=== PATIENT | male | born 1960 | race Caucasian/White ===

== ENCOUNTER 2020-07-12 12:12 | Outpatient (REF) | payer OTHER, SELFPAY ==
[2020-07-12 14:41] LABS: Alanine Aminotransferase 16 U/L (0-40); Albumin Level 4.5 g/dL (3.5-5.0); Alkaline Phosphatase 52 U/L (39-117); Anion Gap 12 (12-20); Aspartate Amino Transferase 17 U/L (5-37); Bilirubin Total 0.6 mg/dL (0.0-1.0); Blood Urea Nitrogen 15 mg/dL (9-16); Calcium 9.3 mg/dL (8.4-10.2); Carbon Dioxide 27 mmol/L (22-29); Chloride 102 mmol/L (96-108); Cholesterol 241 mg/dL; Estimated Glomerular Filt Rate > 60; Glucose Fasting 99 mg/dL (60-99); HDL Cholesterol 96 mg/dL; LDL Cholesterol Calculated 134 mg/dl; Potassium 4.1 mmol/L (3.3-5.1); Sodium 137 mmol/L (135-145); Total Protein 6.8 g/dL (6.5-8.0); Triglycerides 55 mg/dL
[2020-07-12 15:05] LABS: Prostate Specific Antigen Scr 0.32 ng/mL (<0.05-4.0)
[2020-07-12 15:09] LABS: TSH reflex Free T4 1.74 uIU/mL (0.32-4.0); Vitamin B12 < 146 pg/mL (200-900)
== END 2020-07-12 12:13 | disposition home or self-care (01) ==
LOC: HO.HMGCLDS 12:12
PROVIDERS: PCP Nurse Practitioner Family; Visit Provider Nurse Practitioner Family
DX: Z00.00 Encounter for general adult medical examination without abnormal findings (principal); Z12.5 Encounter for screening for malignant neoplasm of prostate; R20.2 Paresthesia of skin
CPT/HCPCS: 36415; 80053; 80061; 82607; 84153; 84443

== ENCOUNTER 2020-08-23 08:48 | Outpatient (REF) | payer OTHER, SELFPAY ==
[2020-08-23 11:12] LABS: MANUAL DIFF FLAG NO
[2020-08-23 11:19] LABS: Basophils Absolute Auto 0.1 X10*3/uL (0.0-0.2); Basophils Percent Auto 0.9 % (0-2); Eosinophils Percent Auto 0.2 % (0-4); Hemoglobin 13.9 g/dl (14.0-18.0); Imm Gran Abs Auto 0.02 X10*3/uL (0.00-0.03); Imm Gran Pct Auto 0.4 % (0.0-0.4); Lymphocytes Percent Auto 18.6 % (20-40); Mean Corpuscular HGB Conc 33.1 g/dl (31.0-36.0); Mean Corpuscular Hemoglobin 32.9 pg (27.0-33.0); Mean Corpuscular Volume 99.5 fL (80-98); Mean Platelet Volume 9.9 fL (9.4-12.4); Monocytes Absolute Auto 0.3 X10*3/uL (0.1-1.2); Monocytes Percent Auto 6.3 % (2-11); Neutrophils Percent Auto 73.6 % (45-73); Platelet Count 255 X10*3/uL (160-400); Red Blood Count 4.22 X10*6/uL (4.60-5.80); Red Cell Distribution Width 12.4 % (11.0-16.0); White Blood Count 5.4 X10*3/uL (4.8-10.8)
[2020-08-23 12:38] LABS: Folate 5.7 ng/mL (> or = 4.0); Vitamin B12 340 pg/mL (200-900)
[2020-08-23 15:21] LABS: Troponin-I High Sensitivity 8.1 ng/L (<3.5-35.0)
[2020-08-30 10:16] LABS: Parietal Cell Antibody <=20.0 Unit (<=20.0)
[2020-08-30 23:36] LABS: Intrinsic Factor Antibodies Negative (Negative)
== END 2020-08-23 08:49 | disposition home or self-care (01) ==
LOC: HO.HMGCLDS 08:48
PROVIDERS: PCP Nurse Practitioner Family; Visit Provider Nurse Practitioner Family
DX: E53.8 Deficiency of other specified B group vitamins (principal); R07.89 Other chest pain
CPT/HCPCS: 36415; 82607; 82746; 83516; 84484; 85025; 86340

== ENCOUNTER 2020-08-25 13:33 | Outpatient (REF) | payer OTHER, SELFPAY ==
[2020-08-26 09:01] LABS: Lyme Abs Screen <0.90 index
== END 2020-08-25 13:34 | disposition home or self-care (01) ==
LOC: HO.HMGCLDS 13:33
PROVIDERS: PCP Nurse Practitioner Family; Visit Provider Nurse Practitioner Family
DX: R20.2 Paresthesia of skin (principal); T14.8XXA Other injury of unspecified body region, initial encounter; W57.XXXA Bitten or stung by nonvenomous insect and other nonvenomous arthropods, initial encounter
CPT/HCPCS: 36415; 86617; 86618

== ENCOUNTER 2020-09-08 08:49 | Outpatient (REF) | payer OTHER, SELFPAY ==
--- NOTE | 2020-09-08 08:54 | EMG_ITS ---
This is a 59-year-old man, who has had years of bilateral lower extremity pain and some bony pain on the dorsum of the foot and some calluses of the tibial tubercle. His neurological examination is normal. IMPRESSION: Rule out peripheral neuropathy. Nerve conduction EMG study: Left peroneal motor axonal neuropathy, otherwise normal study with no evidence of diffuse neuropathy. EMG of the left L4-S1 innervated muscles is consistent with chronic left peroneal neuropathy distally with chronic denervation of the EDB muscle. Clinical correlation is suggested. MD MERCEDES Son/CHERRI / [id number]
== END 2020-09-08 08:50 | disposition home or self-care (01) ==
LOC: HO.NEURO 08:49
PROVIDERS: PCP Nurse Practitioner Family; Visit Provider Nurse Practitioner Family
DX: R20.2 Paresthesia of skin (principal)
CPT/HCPCS: 95885; 95912

== ENCOUNTER 2020-09-24 13:52 | Inpatient (IN) | payer OTHER, SELFPAY ==
--- NOTE | ~2020-09-24 | XR_ITS ---
EXAMINATION: CHEST AND BILATERAL FOOT EXAM. CLINICAL INFORMATION: Paresthesia/dizziness and chest pain. COMPARISON: None TECHNIQUE: Chest 2 views. 3 views each foot. FINDINGS: CHEST: The lungs are well-expanded and clear. The heart size and pulmonary vascularity is normal. No gross bony abnormality seen. LEFT FOOT: There is no visible acute fracture, dislocation or subluxation seen. No bony erosive changes. The ankle mortise and subtalar joints are normal. RIGHT FOOT: There is no visible acute fracture, dislocation or subluxation seen. No bony erosive changes. There is an old fracture fragment tip of lateral malleolus. The soft tissues are normal. XR/XR foot RT min 3V IMPRESSION: Unremarkable chest exam. Unremarkable bilateral foot exam.
--- NOTE | ~2020-09-24 | CT_ITS ---
EXAMINATION: CT HEAD WITHOUT CONTRAST CLINICAL INFORMATION: Dizziness false COMPARISON: Prior CT October 2019 TECHNIQUE: Contiguous axial imaging was performed from the skull base to vertex without intravenous administration of contrast. This CT examination was performed using dose optimization techniques as appropriate, variously including the following: *Automated exposure control *Adjustment of mA and/or kV according to patient size (this includes techniques or standardized protocols for targeted exams where dose is matched to indication/reason for exam; i.e. extremities or head) *Use of iterative reconstruction technique DLP: 652 mGy-cm FINDINGS: There is no evidence of acute intracranial hemorrhage or territorial infarction. No abnormal mass effect or midline shift is seen. [place] to white matter differentiation is well preserved. No extra-axial fluid collections are identified. The ventricles are normal in size. There is no abnormal attenuation within the brain parenchyma. The osseous structures and soft tissues are normal. The mastoid air cells and visualized portions of the paranasal sinuses are well aerated. CT/CT head/brain wo con IMPRESSION: No acute intracranial pathology.
--- NOTE | ~2020-09-24 | XR_ITS ---
EXAMINATION: CHEST AND BILATERAL FOOT EXAM. CLINICAL INFORMATION: Paresthesia/dizziness and chest pain. COMPARISON: None TECHNIQUE: Chest 2 views. 3 views each foot. FINDINGS: CHEST: The lungs are well-expanded and clear. The heart size and pulmonary vascularity is normal. No gross bony abnormality seen. LEFT FOOT: There is no visible acute fracture, dislocation or subluxation seen. No bony erosive changes. The ankle mortise and subtalar joints are normal. RIGHT FOOT: There is no visible acute fracture, dislocation or subluxation seen. No bony erosive changes. There is an old fracture fragment tip of lateral malleolus. The soft tissues are normal. XR/XR chest 2V IMPRESSION: Unremarkable chest exam. Unremarkable bilateral foot exam.
--- NOTE | ~2020-09-24 | XR_ITS ---
EXAMINATION: CHEST AND BILATERAL FOOT EXAM. CLINICAL INFORMATION: Paresthesia/dizziness and chest pain. COMPARISON: None TECHNIQUE: Chest 2 views. 3 views each foot. FINDINGS: CHEST: The lungs are well-expanded and clear. The heart size and pulmonary vascularity is normal. No gross bony abnormality seen. LEFT FOOT: There is no visible acute fracture, dislocation or subluxation seen. No bony erosive changes. The ankle mortise and subtalar joints are normal. RIGHT FOOT: There is no visible acute fracture, dislocation or subluxation seen. No bony erosive changes. There is an old fracture fragment tip of lateral malleolus. The soft tissues are normal. XR/XR foot LT min 3V IMPRESSION: Unremarkable chest exam. Unremarkable bilateral foot exam.
[2020-09-24 15:32] VITALS: BP 158/109; PULSE 64; RESP 18; TEMP 36.7; O2SAT 97; BMI 21.7
--- NOTE | 2020-09-24 16:08 | ECG_ITS ---
Test Reason : NUMBNESS LEGS Blood Pressure : / mmHG Vent. Rate : 059 BPM Atrial Rate : 059 BPM P-R Int : 124 ms QRS Dur : 106 ms QT Int : 458 ms P-R-T Axes : 068 023 -19 degrees QTc Int : 453 ms Sinus bradycardia Possible Left atrial enlargement Incomplete right bundle branch block Inferior infarct , age undetermined Abnormal ECG No previous ECGs available Referred By: Audra Winslow Electronically Signed By:SATISH HARLEY MD
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
[2020-09-24 16:37] LABS: MANUAL DIFF FLAG NO
[2020-09-24 16:40] LABS: Basophils Percent Auto 0.4 % (0-2); Eosinophils Percent Auto 0.3 % (0-4); Hemoglobin 14.8 g/dl (14.0-18.0); Imm Gran Abs Auto 0.02 X10*3/uL (0.00-0.03); Imm Gran Pct Auto 0.3 % (0.0-0.4); Lymphocytes Absolute Auto 1.7 X10*3/uL (1.2-4.9); Lymphocytes Percent Auto 24.8 % (20-40); Mean Corpuscular HGB Conc 33.6 g/dl (31.0-36.0); Mean Corpuscular Hemoglobin 32.4 pg (27.0-33.0); Mean Corpuscular Volume 96.3 fL (80-98); Mean Platelet Volume 9.5 fL (9.4-12.4); Monocytes Absolute Auto 0.5 X10*3/uL (0.1-1.2); Monocytes Percent Auto 7.6 % (2-11); Neutrophils Absolute Auto 4.6 X10*3/uL (2.0-8.3); Neutrophils Percent Auto 66.6 % (45-73); Platelet Count 238 X10*3/uL (160-400); Red Blood Count 4.57 X10*6/uL (4.60-5.80); Red Cell Distribution Width 11.9 % (11.0-16.0); White Blood Count 6.9 X10*3/uL (4.8-10.8)
[2020-09-24 17:03] LABS: B Type Natriuretic Peptide 105 pg/mL (<100); Troponin-I High Sensitivity 13.6 ng/L (<3.5-35.0)
[2020-09-24 17:06] LABS: Alanine Aminotransferase 15 U/L (0-40); Albumin Level 4.6 g/dL (3.5-5.0); Alkaline Phosphatase 62 U/L (39-117); Anion Gap 13 (12-20); Aspartate Amino Transferase 23 U/L (5-37); Bilirubin Total 0.8 mg/dL (0.0-1.0); Blood Urea Nitrogen 11 mg/dL (9-16); Calcium 9.4 mg/dL (8.4-10.2); Carbon Dioxide 28 mmol/L (22-29); Chloride 104 mmol/L (96-108); Creatinine Clr Calc Pharmacy 76.6; Estimated Glomerular Filt Rate > 60; Glucose Random 84 mg/dL (60-115); Magnesium 2.1 mg/dL (1.6-2.6); Potassium 3.7 mmol/L (3.3-5.1); Sodium 141 mmol/L (135-145); Total Protein 6.9 g/dL (6.5-8.0)
[2020-09-24 18:12] LABS: Glucose Urine UA NEG (NEG); Leukocyte Esterase Urine NEG (NEG); Nitrite Urine NEG (NEG); Urine Blood 1+ (NEG); Urine Ketones 5 MG/DL (NEG); Urine Protein NEG (NEG-TRACE)
[2020-09-24 18:17] LABS: Appearance Urine HAZY; Color Urine YELLOW
[2020-09-24 19:15] LABS: RBC Urine 0-2 /HPF (0); Squamous Epithelial Cell Urine TRACE /LPF; WBC Urine 0-2 /HPF (0-4)
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
--- NOTE | 2020-09-24 20:35 | MHC.CARE ---
CARE team support requested by NIYAH Gaytan for pt who was requesting to speak with a therapist, specifically male. This residential mortgage underwriter met with pt in room 20 to offer referrals and resources for therapy. He reported that he has been working with a therapist since March and doesn't need to be referred, explaining that he wanted to speak with someone here at the hospital. Initially he was requesting to speak with someone who can help with his financial and living situation, however he made several statements about suicide, wanting to , and spoke at length about various bits and pieces of his history. Hyperverbal with pressured speech, tangential, and presenting with thoughts of hopelessness and helplessness. He made statements such as I don't want to live, I'll kill myself in a year and a half after the money runs out, and I'll be by my birthday on Sunday. Recommending that pt receive full crisis evaluation. Provided verbal clinical and demographic information to [facility] triage Yunioryonis, awaiting response for ETA. Sect 12a will be signed and placed in pt's chart for safety and containment pending crisis evaluation and disposition.
--- NOTE | 2020-09-24 21:01 | PC.NURSE ---
Per Laura (care team), Elvi to evaluate patient in the morning. Pt changed over to hospital attire, belongings secured in locker #4 in the POD. No contraband found. Pt makes vague SI statements like I'll later this week and When my money runs out, I'm just gonna . Previously seen by care team (see previous Care Team note). Repeat troponin level being drawn at this time. Urine specimen sent to lab for analysis. Awaiting results.
--- NOTE | 2020-09-24 21:19 | MHC.CARE ---
CARE team will be completing evaluation due to [facility] being unable to provide a clinician until the morning.
[2020-09-24 21:53] LABS: Troponin-I High Sensitivity 11.8 ng/L (<3.5-35.0)
[2020-09-24 22:00] VITALS: BP 158/92; PULSE 87; RESP 18; O2SAT 97
[2020-09-24 22:32] LABS: Amphetamine Screen Urine Not Detected (Not Detect); Barbiturates, Urine Not Detected (Not Detect); Benzodiazepines Screen Urine Not Detected (Not Detect); Cannabinoid Screen Urine Not Detected (Not Detect); Cocaine Screen Urine Not Detected (Not Detect); Opiate Screen Urine Not Detected (Not Detect); Phencyclidine Screen Urine Not Detected (Not Detect)
[2020-09-24] MEDS: LORazepam 1 MG TABLET 2 MG PO (23:40)
[2020-09-24] MEDS: HaloperidoL 5 MG TABLET PO (23:40)
--- NOTE | 2020-09-25 02:43 | MHC.CARE ---
CARE team evaluation completed. Disposition is for inpatient psychiatric treatment. Section 12a in chart for safety and containment pending facility placement. Agreeable at this time. Will remain in ED until placement is secured. CADDY Lucila in agreement with plan of care.
--- NOTE | 2020-09-25 08:12 | ED.GENADULT ---
HPI - General Adult General Chief complaint: General Medical Stated complaint: numbness throughout the body/multiple complaints Time Seen by Provider: 09/24/20 16:08 Source: patient Mode of arrival: ambulatory Limitations: no limitations History of Present Illness Location: head, left, right, upper extremity and lower extremity Severity scale (1-10): 10 Quality: aching Relieving factors: none Exacerbating factors: movement Associated symptoms: loss of appetite Treatments prior to arrival: none Related Data Home Medications Medication Instructions Recorded Confirmed No Known Home Meds 09/24/20 09/24/20 Allergies Allergy/AdvReac Type Severity Reaction Status Date / Time No Known Allergies Allergy Verified 09/24/20 15:38 PMFSH Past Medical History Medical History Physical exam Surgical History No pertinent past surgical history Family History Family History Father Unknown family medical history Mother Unknown family medical history Social History Social History Alcohol intake: never Years Smoked: since 9 years old Advance Directives: Yes Advance Directives Information Provided: Yes Advance Directives on File: No Healthcare Proxy: No Guardian: No Physical Exam Vital Signs: Vital Signs: Last Vital Signs Temp 98.0 F 09/24/20 15:32 Pulse 87 09/24/20 22:00 Resp 18 09/24/20 22:00 BP 158/92 H 09/24/20 22:00 Pulse Ox 97 09/24/20 22:00 Body Mass Index 21.7 Course Course Course Narrative: physician observation continued, NAD resting comfortably, no issues during the night, patient continues to be a bed search Medical Decision Making Lab Data Result diagrams: 09/24/20 16:31 09/24/20 16:31 Labs: Lab Results 09/24/20 09/24/20 09/24/20 Range/Units 16:31 16:31 16:31 WBC 6.9 (4.8-10.8) X10*3/uL RBC 4.57 L (4.60-5.80) X10*6/uL Hgb 14.8 (14.0-18.0) g/dl Hct 44.0 (42-52) % MCV 96.3 (80-98) fL MCH 32.4 (27.0-33.0) pg MCHC 33.6 (31.0-36.0) g/dl RDW 11.9 (11.0-16.0) % Plt Count 238 (160-400) X10*3/uL MPV 9.5 (9.4-12.4) fL Immature Gran % (Auto) 0.3 (0.0-0.4) % Neut % (Auto) 66.6 (45-73) % Lymph % (Auto) 24.8 (20-40) % Colbert % (Auto) 7.6 (2-11) % Eos % (Auto) 0.3 (0-4) % Baso % (Auto) 0.4 (0-2) % Lymph # (Auto) 1.7 (1.2-4.9) X10*3/uL Colbert # (Auto) 0.5 (0.1-1.2) X10*3/uL Eos # (Auto) 0.0 (0.0-0.4) X10*3/uL Baso # (Auto) 0.0 (0.0-0.2) X10*3/uL Abs Immat Gran (auto) 0.02 (0.00-0.03) X10*3/uL Absolute Neuts (auto) 4.6 (2.0-8.3) X10*3/uL Absolute Nucleated RBC 0.000 (0.0-0.012) X10*3/uL Nucleated RBC % (auto) 0.0 (0.0-0.2) /100WBC PT 11.0 (9.9-13.0) SEC INR 1.0 (0.9-1.1) Sodium 141 (135-145) mmol/L Potassium 3.7 (3.3-5.1) mmol/L Chloride 104 (96-108) mmol/L Carbon Dioxide 28 (22-29) mmol/L Anion Gap 13 (12-20) BUN 11 (9-16) mg/dL Creatinine 0.91 (0.5-1.4) mg/dL Estim Creat Clear Calc 76.6 Estimated GFR > 60 Random Glucose 84 (60-115) mg/dL Calcium 9.4 (8.4-10.2) mg/dL Magnesium 2.1 (1.6-2.6) mg/dL Total Bilirubin 0.8 (0.0-1.0) mg/dL AST 23 (5-37) U/L ALT 15 (0-40) U/L Alkaline Phosphatase 62 (39-117) U/L Troponin I High Sens (<3.5-35.0) ng/L B-Natriuretic Peptide (<100) pg/mL Total Protein 6.9 (6.5-8.0) g/dL Albumin 4.6 (3.5-5.0) g/dL Urine Color Urine Appearance Urine pH (5.0-8.0) Ur Specific [place] (1.005-1.025) Urine Protein (NEG-TRACE) MG/DL Urine Glucose (UA) (NEG) MG/DL Urine Ketones (NEG) MG/DL Urine Blood (NEG) Urine Nitrite (NEG) Ur Leukocyte Esterase (NEG) Urine RBC (0) /HPF Urine WBC (0-4) /HPF Ur Squamous Epith Cells /LPF Urine Bacteria /LPF Urine Opiates Screen (Not Detect) Ur Barbiturates Screen (Not Detect) Ur Phencyclidine Scrn (Not Detect) Ur Amphetamines Screen (Not Detect) U Benzodiazepines Scrn (Not Detect) Urine Cocaine Screen (Not Detect) U Marijuana (THC) Screen (Not Detect) 09/24/20 09/24/20 09/24/20 Range/Units 16:31 17:55 21:12 WBC (4.8-10.8) X10*3/uL RBC (4.60-5.80) X10*6/uL Hgb (14.0-18.0) g/dl Hct (42-52) % MCV (80-98) fL MCH (27.0-33.0) pg MCHC (31.0-36.0) g/dl RDW (11.0-16.0) % Plt Count (160-400) X10*3/uL MPV (9.4-12.4) fL Immature Gran % (Auto) (0.0-0.4) % Neut % (Auto) (45-73) % Lymph % (Auto) (20-40) % Colbert % (Auto) (2-11) % Eos % (Auto) (0-4) % Baso % (Auto) (0-2) % Lymph # (Auto) (1.2-4.9) X10*3/uL [place] # (Auto) (0.1-1.2) X10*3/uL Eos # (Auto) (0.0-0.4) X10*3/uL Baso # (Auto) (0.0-0.2) X10*3/uL Abs Immat Gran (auto) (0.00-0.03) X10*3/uL Absolute Neuts (auto) (2.0-8.3) X10*3/uL Absolute Nucleated RBC (0.0-0.012) X10*3/uL Nucleated RBC % (auto) (0.0-0.2) /100WBC PT (9.9-13.0) SEC INR (0.9-1.1) Sodium (135-145) mmol/L Potassium (3.3-5.1) mmol/L Chloride (96-108) mmol/L Carbon Dioxide (22-29) mmol/L Anion Gap (12-20) BUN (9-16) mg/dL Creatinine (0.5-1.4) mg/dL Estim Creat Clear Calc Estimated GFR Random Glucose (60-115) mg/dL Calcium (8.4-10.2) mg/dL Magnesium (1.6-2.6) mg/dL Total Bilirubin (0.0-1.0) mg/dL AST (5-37) U/L ALT (0-40) U/L Alkaline Phosphatase (39-117) U/L Troponin I High Sens 13.6 D 11.8 (<3.5-35.0) ng/L B-Natriuretic Peptide 105 H (<100) pg/mL Total Protein (6.5-8.0) g/dL Albumin (3.5-5.0) g/dL Urine Color YELLOW Urine Appearance HAZY Urine pH 6.0 (5.0-8.0) Ur Specific [place] 1.020 (1.005-1.025) Urine Protein NEG (NEG-TRACE) MG/DL Urine Glucose (UA) NEG (NEG) MG/DL Urine Ketones 5 (NEG) MG/DL Urine Blood 1+ H (NEG) Urine Nitrite NEG (NEG) Ur Leukocyte Esterase NEG (NEG) Urine RBC 0-2 (0) /HPF Urine WBC 0-2 (0-4) /HPF Ur Squamous Epith Cells TRACE /LPF Urine Bacteria NONE /LPF Urine Opiates Screen (Not Detect) Ur Barbiturates Screen (Not Detect) Ur Phencyclidine Scrn (Not Detect) Ur Amphetamines Screen (Not Detect) U Benzodiazepines Scrn (Not Detect) Urine Cocaine Screen (Not Detect) U Marijuana (THC) Screen (Not Detect) 09/24/20 Range/Units 21:59 WBC (4.8-10.8) X10*3/uL RBC (4.60-5.80) X10*6/uL Hgb (14.0-18.0) g/dl Hct (42-52) % MCV (80-98) fL MCH (27.0-33.0) pg MCHC (31.0-36.0) g/dl RDW (11.0-16.0) % Plt Count (160-400) X10*3/uL MPV (9.4-12.4) fL Immature Gran % (Auto) (0.0-0.4) % Neut % (Auto) (45-73) % Lymph % (Auto) (20-40) % [place]bert % (Auto) (2-11) % Eos % (Auto) (0-4) % Baso % (Auto) (0-2) % Lymph # (Auto) (1.2-4.9) X10*3/uL [place] # (Auto) (0.1-1.2) X10*3/uL Eos # (Auto) (0.0-0.4) X10*3/uL Baso # (Auto) (0.0-0.2) X10*3/uL Abs Immat Gran (auto) (0.00-0.03) X10*3/uL Absolute Neuts (auto) (2.0-8.3) X10*3/uL Absolute Nucleated RBC (0.0-0.012) X10*3/uL Nucleated RBC % (auto) (0.0-0.2) /100WBC PT (9.9-13.0) SEC INR (0.9-1.1) Sodium (135-145) mmol/L Potassium (3.3-5.1) mmol/L Chloride (96-108) mmol/L Carbon Dioxide (22-29) mmol/L Anion Gap (12-20) BUN (9-16) mg/dL Creatinine (0.5-1.4) mg/dL Estim Creat Clear Calc Estimated GFR Random Glucose (60-115) mg/dL Calcium (8.4-10.2) mg/dL Magnesium (1.6-2.6) mg/dL Total Bilirubin (0.0-1.0) mg/dL AST (5-37) U/L ALT (0-40) U/L Alkaline Phosphatase (39-117) U/L Troponin I High Sens (<3.5-35.0) ng/L B-Natriuretic Peptide (<100) pg/mL Total Protein (6.5-8.0) g/dL Albumin (3.5-5.0) g/dL Urine Color Urine Appearance Urine pH (5.0-8.0) Ur Specific [place] (1.005-1.025) Urine Protein (NEG-TRACE) MG/DL Urine Glucose (UA) (NEG) MG/DL Urine Ketones (NEG) MG/DL Urine Blood (NEG) Urine Nitrite (NEG) Ur Leukocyte Esterase (NEG) Urine RBC (0) /HPF Urine WBC (0-4) /HPF Ur Squamous Epith Cells /LPF Urine Bacteria /LPF Urine Opiates Screen Not Detected (Not Detect) Ur Barbiturates Screen Not Detected (Not Detect) Ur Phencyclidine Scrn Not Detected (Not Detect) Ur Amphetamines Screen Not Detected (Not Detect) U Benzodiazepines Scrn Not Detected (Not Detect) Urine Cocaine Screen Not Detected (Not Detect) U Marijuana (THC) Screen Not Detected (Not Detect) Discharge Plan Discharge Clinical Impression: Psychosis, Suicidal intent Prescriptions: No Action No Known Home Meds RF: 0
[2020-09-25 09:45] LABS: COVID-19 Test Negative (Negative)
--- NOTE | 2020-09-25 15:22 | P.CNPS_ITS ---
Assessment & Plan Assessment & Plan (1) Major depression: Status: Acute Code(s): F32.9 - Major depressive disorder, single episode, unspecified Recommendations: does fulfill criteria for major depression a depressed, poor sleep, poor energy, poor appetite, poor motivation, suicidal thoughts. These have been present for weeks if not months. Could benefit from inpatient level of care given severity of depression and suicidal thoughts for/plans associated with same. He is declining medications and does appear to have limited insight regarding same. Greater than 50% of the session was spent on counseling and/or coordination of care History of Present Illness Date of Service: 09/25/2020 Chief Complaint: numbness throughout the body/multiple complaints Reason for Consult: depression suicidal ideation. Sources of Information: patient interviewed and chart reviewed HPI Narrative: Patient reports that he has been feeling depressed given up on life. Reports not wanting to go on. Reports that he has had suicidal thoughts of overdosing or burning his house down with gasoline. Over the last number of weeks if not months reports depressed mood, low energy, poor sleep, poor a ppetite and no motivation. Reports stressors include his house being in disrepair and unlivable. Not having food. Reports needing disability and needing help around paperwork and applications. Reports feeling isolated. Was irritable During evaluation No overt paranoia or delusions. Regarding hallucinations reports that he sometimes talks to himself and cries afterwards but is not sure of that his own thoughts versus voices. Does reports that these thoughts tell him that he needs to let go of everything. Did discuss treatments and he reports not being on medications in the past and he is adamant he does not want to take medications. Discussion around potential diagnosis and potential benefits of treatment was attempted, the patient declined to fully engage in same. Past Psychiatric History: Reports 1 [place] 1980 [place] [address] Also reports he was intoxicated. Last inpatient episode was October 2019. Has a therapist through [facility] in [place] whom he sees weekly. Reports never being on medications and does not want to take medications. Personal & Social History: Lives alone. Reports house is in disrepair and on level. Reports he has been living off family inheritance and savings in the bank. Reluctant to discuss past employment or education. Reports that he had started to try write a will recently and wanted to leave whatever he had to his friends that he is not seen at 32 or 32 years and therefore that was problematic in trying to finalize a will. Does also report wanting to have his car home insurance paid. Single. Reports never being in a relationship because he always felt like a child. No children. Denied legal issues. Reluctant to discuss family Review of Systems Review of Systems aware of ED evaluation [facility] Medical History Physical exam Surgical History No pertinent past surgical history Diagnostics Vital Signs (24Hr): Vital Signs - 24 hr 09/24/20 15:32 09/24/20 22:00 Temperature 98.0 F Pulse Rate 64 87 Respiratory Rate 18 18 Blood Pressure 158/109 H 158/92 H Pulse Oximetry 97 97 Body Mass Index 21.7 Labs Results: 09/24/20 16:31 09/24/20 16:31 Labs: Laboratory Results - last 48 hr 09/24/20 09/24/20 09/24/20 16:31 16:31 16:31 WBC 6.9 RBC 4.57 L Hgb 14.8 Hct 44.0 MCV 96.3 MCH 32.4 MCHC 33.6 RDW 11.9 Plt Count 238 MPV 9.5 Immature Gran % (Auto) 0.3 Neut % (Auto) 66.6 Lymph % (Auto) 24.8 [place] % (Auto) 7.6 Eos % (Auto) 0.3 Baso % (Auto) 0.4 Lymph # (Auto) 1.7 [place] # (Auto) 0.5 Eos # (Auto) 0.0 Baso # (Auto) 0.0 Abs Immat Gran (auto) 0.02 Absolute Neuts (auto) 4.6 Absolute Nucleated RBC 0.000 Nucleated RBC % (auto) 0.0 PT 11.0 INR 1.0 Sodium 141 Potassium 3.7 Chloride 104 Carbon Dioxide 28 Anion Gap 13 BUN 11 Creatinine 0.91 Estim Creat Clear Calc 76.6 Estimated GFR > 60 Random Glucose 84 Calcium 9.4 Magnesium 2.1 Total Bilirubin 0.8 AST 23 ALT 15 Alkaline Phosphatase 62 Troponin I High Sens B-Natriuretic Peptide Total Protein 6.9 Albumin 4.6 Urine Color Urine Appearance Urine pH Ur Specific [place] Urine Protein Urine Glucose (UA) Urine Ketones Urine Blood Urine Nitrite Ur Leukocyte Esterase Urine RBC Urine WBC Ur Squamous Epith Cells Urine Bacteria Urine Opiates Screen Ur Barbiturates Screen Ur Phencyclidine Scrn Ur Amphetamines Screen U Benzodiazepines Scrn Urine Cocaine Screen U Marijuana (THC) Screen COVID-19 (SARAH) COVID-19 Fair value Com 09/24/20 09/24/20 09/24/20 16:31 17:55 21:12 WBC RBC Hgb Hct MCV MCH MCHC RDW Plt Count MPV Immature Gran % (Auto) Neut % (Auto) Lymph % (Auto) [place] % (Auto) Eos % (Auto) Baso % (Auto) Lymph # (Auto) [place] # (Auto) Eos # (Auto) Baso # (Auto) Abs Immat Gran (auto) Absolute Neuts (auto) Absolute Nucleated RBC Nucleated RBC % (auto) PT INR Sodium Potassium Chloride Carbon Dioxide Anion Gap BUN Creatinine Estim Creat Clear Calc Estimated GFR Random Glucose Calcium Magnesium Total Bilirubin AST ALT Alkaline Phosphatase Troponin I High Sens 13.6 D 11.8 B-Natriuretic Peptide 105 H Total Protein Albumin Urine Color YELLOW Urine Appearance HAZY Urine pH 6.0 Ur Specific [place] 1.020 Urine Protein NEG Urine Glucose (UA) NEG Urine Ketones 5 Urine Blood 1+ H Urine Nitrite NEG Ur Leukocyte Esterase NEG Urine RBC 0-2 Urine WBC 0-2 Ur Squamous Epith Cells TRACE Urine Bacteria NONE Urine Opiates Screen Ur Barbiturates Screen Ur Phencyclidine Scrn Ur Amphetamines Screen U Benzodiazepines Scrn Urine Cocaine Screen U Marijuana (THC) Screen COVID-19 (SARAH) COVID-19 Fair value Com 09/24/20 09/25/20 21:59 09:16 WBC RBC Hgb Hct MCV MCH MCHC RDW Plt Count MPV Immature Gran % (Auto) Neut % (Auto) Lymph % (Auto) [place] % (Auto) Eos % (Auto) Baso % (Auto) Lymph # (Auto) [place] # (Auto) Eos # (Auto) Baso # (Auto) Abs Immat Gran (auto) Absolute Neuts (auto) Absolute Nucleated RBC Nucleated RBC % (auto) PT INR Sodium Potassium Chloride Carbon Dioxide Anion Gap BUN Creatinine Estim Creat Clear Calc Estimated GFR Random Glucose Calcium Magnesium Total Bilirubin AST ALT Alkaline Phosphatase Troponin I High Sens B-Natriuretic Peptide Total Protein Albumin Urine Color Urine Appearance Urine pH Ur Specific [place] Urine Protein Urine Glucose (UA) Urine Ketones Urine Blood Urine Nitrite Ur Leukocyte Esterase Urine RBC Urine WBC Ur Squamous Epith Cells Urine Bacteria Urine Opiates Screen Not Detected Ur Barbiturates Screen Not Detected Ur Phencyclidine Scrn Not Detected Ur Amphetamines Screen Not Detected U Benzodiazepines Scrn Not Detected Urine Cocaine Screen Not Detected U Marijuana (THC) Screen Not Detected COVID-19 (SARAH) Negative COVID-19 Clin Com See Note Imaging Radiology Impressions: ITS Impressions Chest X-Ray 09/24/20 16:08 IMPRESSION: Unremarkable chest exam. Unremarkable bilateral foot exam. Foot X-Ray 09/24/20 16:08 IMPRESSION: Unremarkable chest exam. Unremarkable bilateral foot exam. Foot X-Ray 09/24/20 16:08 IMPRESSION: Unremarkable chest exam. Unremarkable bilateral foot exam. Head CT 09/24/20 18:58 IMPRESSION: No acute intracranial pathology. Mental Status Exam Mental Status Exam Narrative: seen in pod room. Irritable at times. No obvious orientation or cognitive issues. Perseverative at times current living situation and planning around same. Endorsed feeling depressed. Endorsed having suicidal thoughts. No HI. No overt psychosis. No hallucinations. Insight and judgment does appear limited at times Medications Allergies Allergies Allergy/AdvReac Type Severity Reaction Status Date / Time No Known Allergies Allergy Verified 09/24/20 15:38
[2020-09-25 18:36] VITALS: BP 136/89; PULSE 77; TEMP 37.1; O2SAT 99
[2020-09-25 21:42] VITALS: BP 102/81; PULSE 66; TEMP 36.2; O2SAT 97
[2020-09-26 01:00] VITALS: BP 109/79; PULSE 72; RESP 18; TEMP 36.3; O2SAT 98
--- NOTE | 2020-09-26 06:18 | PC.NURSE ---
Patient in bed appears sleeping at this time, overall slept well, patient during the night was persevering about his bilateral feet numbness, appears presenting somatic delusion, copy of foot X-ray handed it over, patient is not on any medication at this time, VSS, behavior appropriate, will continue to monitor.
--- NOTE | 2020-09-26 08:13 | PC.NURSE ---
CARE team Teddy at bedside for re-eval.
[2020-09-26 11:44] VITALS: BP 125/84; PULSE 64; RESP 16; TEMP 36.8; O2SAT 98
[2020-09-26 14:00] VITALS: RESP 16
[2020-09-26 22:09] VITALS: BP 125/84; PULSE 67; TEMP 36.4; O2SAT 98
[2020-09-26 23:33] VITALS: BP 121/79; PULSE 66; RESP 16; TEMP 36.7; O2SAT 98
--- NOTE | 2020-09-27 05:56 | PC.NURSE ---
Patient slept through the night, no distress observed/reported, VSS, patient is not on any medication at this time, behavior appropriate, appetite good, elimination intact, disposition section 12 inpatient bed search, will continue to monitor.
--- NOTE | 2020-09-27 07:01 | PC.NURSE ---
patient appears to remain at rest at present, appears in no distress.
[2020-09-27 08:04] VITALS: BP 127/84; PULSE 67; RESP 13; TEMP 36.7; O2SAT 98
[2020-09-27 21:11] VITALS: BP 106/75; PULSE 66; RESP 15; TEMP 36.7; O2SAT 98
[2020-09-27 21:40] LABS: Lyme Abs Screen <0.90 index
--- NOTE | 2020-09-28 05:52 | PC.NURSE ---
Patient slept through the night, no distress observed/reported, OOR x 2 for bathroom use and back, behavior appropriate, disposition section 12 inpatient bed search, VSS, patient is currently not on any medication, will continue to monitor.
[2020-09-28 06:33] VITALS: BP 131/85; PULSE 59; RESP 16; TEMP 36.7; O2SAT 99
--- NOTE | 2020-09-28 07:16 | PC.NURSE ---
patient appears to remain relaxed this morning, appears to be awaiting transition to inpatient unit. appears in no distress
[2020-09-28 18:00] VITALS: BP 137/85; PULSE 73; RESP 16; TEMP 37; O2SAT 98
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
[2020-09-29] MEDS: hydrOXYzine HCL 25 MG TABLET PO (00:42)
[2020-09-29 06:46] VITALS: BP 136/78; PULSE 71; TEMP 36.4; O2SAT 98
[2020-09-29 08:21] LABS: Estimated Average Glucose 108 mg/dL; Hemoglobin A1c % 5.4 %
[2020-09-29 08:35] LABS: Cholesterol 233 mg/dL; HDL Cholesterol 69 mg/dL; LDL Cholesterol Calculated 144 mg/dl; Triglycerides 100 mg/dL
[2020-09-29 08:55] LABS: Free T4 (Free Thyroxine) 1.03 ng/dL (0.71-1.85); Thyroid Stimulating Hormone 2.97 uIU/mL (0.32-4.0)
--- NOTE | 2020-09-29 09:26 | PC.NURSE ---
Pt reports he smokes only 2 cigarettes a day and is declining any Nicotine replacement therapy at this time.
[2020-09-29 09:28] LABS: Folate 5.9 ng/mL (> or = 4.0); Vitamin B12 254 pg/mL (200-900)
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
[2020-09-29 18:00] VITALS: BP 125/78; PULSE 84; RESP 16; TEMP 36.2; O2SAT 97
[2020-09-29] MEDS: traZODone HCL 50 MG TABLET PO (20:21)
[2020-09-30 06:29] VITALS: BP 112/70; PULSE 74; RESP 16; TEMP 36.5; O2SAT 97
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
[2020-09-30] MEDS: traZODone HCL 50 MG TABLET PO (20:18)
[2020-09-30 20:20] VITALS: BP 119/80; PULSE 88; TEMP 36.7
[2020-10-01 06:00] VITALS: BP 126/81; PULSE 70; RESP 16; TEMP 36.7; O2SAT 98
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
[2020-10-01] MEDS: traZODone HCL 50 MG TABLET PO (20:27)
[2020-10-01 22:01] VITALS: BP 159/89; PULSE 80; TEMP 36.6
[2020-10-02 06:00] VITALS: BP 141/82; PULSE 69; RESP 18; TEMP 36.1; O2SAT 98
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
[2020-10-02 18:00] VITALS: BP 130/82; PULSE 87; TEMP 36.9
[2020-10-02] MEDS: traZODone HCL 50 MG TABLET PO (20:44)
[2020-10-03 06:00] VITALS: BP 120/82; PULSE 65; RESP 18; TEMP 36.8; O2SAT 98
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
[2020-10-03 18:00] VITALS: BP 128/79; PULSE 80
[2020-10-03] MEDS: traZODone HCL 50 MG TABLET PO (21:08)
[2020-10-04 06:00] VITALS: BP 116/66; PULSE 80; RESP 18; TEMP 35.8; O2SAT 98
[2020-10-04] MEDS: traZODone HCL 50 MG TABLET PO (20:24)
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
[2020-10-05 06:00] VITALS: BP 138/81; PULSE 68; RESP 18; TEMP 35.8; O2SAT 97
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
== END 2020-10-05 13:55 | disposition home or self-care (01) | DRG 754 ==
LOC: HO.ED 09-26 23:34 → HO.PM5 09-28 16:57
PROVIDERS: Emergency Medicine; Nurse Practitioner Family; Physician Assistant Medical; Admitting Provider Psychiatry & Neurology Psychiatry; Emergency Provider Emergency Medicine; PCP Nurse Practitioner Family; Visit Provider Clinical Nurse Specialist Psychiatric/Mental Health, Adult
DX: F32.9 Major depressive disorder, single episode, unspecified (principal); R45.851 Suicidal ideations; F17.210 Nicotine dependence, cigarettes, uncomplicated; F43.10 Post-traumatic stress disorder, unspecified; Z71.6 Tobacco abuse counseling; R29.6 Repeated falls; Z91.81 History of falling; Z20.822 Contact with and (suspected) exposure to COVID-19; F42.3 Hoarding disorder
CPT/HCPCS: 36415; 70450; 71046; 73630; 80053; 80061; 80307; 81001; 82607; 82746; 83036; 83735; 83880; 84439; 84443; 84484; 85025; 85610; 86617; 86618; 87635; 93005; 99284

== ENCOUNTER 2020-10-11 15:02 | Outpatient (REF) | payer OTHER, SELFPAY ==
[2020-10-11 17:23] LABS: Prostate Specific Antigen Scr 1.29 ng/mL (<0.05-4.0)
[2020-10-11 17:36] LABS: Glucose Urine UA NEG (NEG); Leukocyte Esterase Urine NEG (NEG); Nitrite Urine NEG (NEG); Specific Gravity - Urine 1.025 (1.005-1.025); Urine Blood 1+ (NEG); Urine Ketones NEG (NEG); Urine Protein NEG (NEG-TRACE)
[2020-10-11 18:04] LABS: Appearance Urine CLEAR; Color Urine YELLOW
[2020-10-11 18:20] LABS: Squamous Epithelial Cell Urine 1+ /LPF; WBC Urine 0 /HPF (0-4)
== END 2020-10-11 15:03 | disposition home or self-care (01) ==
LOC: HO.HMGCLDS 15:02
PROVIDERS: PCP Nurse Practitioner Family; Visit Provider Nurse Practitioner Family
DX: R35.1 Nocturia (principal); R31.29 Other microscopic hematuria
CPT/HCPCS: 36415; 81001; 84153; 87086

== ENCOUNTER 2020-10-21 09:15 | Outpatient (REF) | payer OTHER, SELFPAY ==
[2020-10-21 11:05] LABS: Urine Cytology See Pathology rpt
[2020-10-21 11:20] LABS: Glucose Urine UA NEG (NEG); Leukocyte Esterase Urine NEG (NEG); Nitrite Urine NEG (NEG); Urine Blood TRACE (NEG); Urine Ketones NEG (NEG); Urine Protein NEG (NEG-TRACE)
[2020-10-21 11:34] LABS: Appearance Urine HAZY; Color Urine YELLOW
[2020-10-21 11:42] LABS: Amorphous Sediment Urine 3+ /LPF; WBC Urine 0 /HPF (0-4)
== END 2020-10-21 09:16 | disposition home or self-care (01) ==
LOC: HO.HMGCLNP 09:15
PROVIDERS: Visit Provider Nurse Practitioner Family
DX: R31.29 Other microscopic hematuria (principal)
CPT/HCPCS: 81001; 88112

== ENCOUNTER 2020-10-23 06:39 | Inpatient (IN) | payer OTHER, SELFPAY ==
[2020-10-23 06:48] VITALS: BP 143/99; PULSE 74; RESP 18; TEMP 36.3; O2SAT 98; BMI 22.7
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
[2020-10-23 10:02] LABS: MANUAL DIFF FLAG NO
[2020-10-23 10:08] LABS: Basophils Percent Auto 0.5 % (0-2); Eosinophils Absolute Auto 0.1 X10*3/uL (0.0-0.4); Hematocrit 42.6 % (42-52); Imm Gran Abs Auto 0.01 X10*3/uL (0.00-0.03); Imm Gran Pct Auto 0.2 % (0.0-0.4); Lymphocytes Absolute Auto 1.4 X10*3/uL (1.2-4.9); Lymphocytes Percent Auto 24.2 % (20-40); Mean Corpuscular HGB Conc 32.9 g/dl (31.0-36.0); Mean Corpuscular Volume 97.3 fL (80-98); Mean Platelet Volume 9.3 fL (9.4-12.4); Monocytes Absolute Auto 0.5 X10*3/uL (0.1-1.2); Neutrophils Absolute Auto 3.9 X10*3/uL (2.0-8.3); Neutrophils Percent Auto 65.1 % (45-73); Platelet Count 238 X10*3/uL (160-400); Red Blood Count 4.38 X10*6/uL (4.60-5.80); Red Cell Distribution Width 12.3 % (11.0-16.0); White Blood Count 5.9 X10*3/uL (4.8-10.8)
[2020-10-23 10:15] LABS: Glucose Urine UA NEG (NEG); Leukocyte Esterase Urine NEG (NEG); Nitrite Urine NEG (NEG); Specific Gravity - Urine 1.025 (1.005-1.025); UACC Culture Trigger NO; Urine Blood 1+ (NEG); Urine Ketones NEG (NEG); Urine Protein NEG (NEG-TRACE)
[2020-10-23 10:17] LABS: Appearance Urine CLEAR; Color Urine YELLOW
[2020-10-23 10:20] LABS: COVID-19 Test Negative (Negative)
[2020-10-23 10:29] LABS: WBC Urine 0-2 /HPF (0-4)
[2020-10-23 10:30] LABS: Bacteria Urine TRACE /LPF; Mucus Urine 1+ /LPF; Squamous Epithelial Cell Urine TRACE /LPF
[2020-10-23 10:33] LABS: Ethanol < 10 mg/dL
[2020-10-23 10:36] LABS: Amphetamine Screen Urine Not Detected (Not Detect); Barbiturates, Urine Not Detected (Not Detect); Benzodiazepines Screen Urine Not Detected (Not Detect); Cannabinoid Screen Urine Not Detected (Not Detect); Cocaine Screen Urine Not Detected (Not Detect); Fentanyl, urine Not Detected (Not Detect); Opiate Screen Urine Not Detected (Not Detect); Phencyclidine Screen Urine Not Detected (Not Detect)
[2020-10-23 10:39] LABS: Alanine Aminotransferase 20 U/L (0-40); Albumin Level 4.2 g/dL (3.5-5.0); Alkaline Phosphatase 53 U/L (39-117); Anion Gap 12 (12-20); Aspartate Amino Transferase 15 U/L (5-37); Bilirubin Total 0.5 mg/dL (0.0-1.0); Blood Urea Nitrogen 12 mg/dL (9-16); Calcium 9.2 mg/dL (8.4-10.2); Carbon Dioxide 27 mmol/L (22-29); Chloride 107 mmol/L (96-108); Estimated Glomerular Filt Rate > 60; Glucose Random 102 mg/dL (60-115); Lipase 56 U/L (8-78); Magnesium 2.1 mg/dL (1.6-2.6); Potassium 5.2 mmol/L (3.3-5.1); Sodium 141 mmol/L (135-145); Total Protein 6.2 g/dL (6.5-8.0)
--- NOTE | 2020-10-23 13:50 | MHC.CARE ---
Patient evaluated by CARE Team, he will need an inpatient psychaitric admission. Written assessment to follow. Providers updated and in agreement with plan.
[2020-10-23 15:38] VITALS: BP 113/68; PULSE 71; RESP 18; TEMP 36.8; O2SAT 97
--- NOTE | 2020-10-23 15:49 | PC.NURSE ---
Report received. Pt resting in bed at current, no complaints at this time. [facility]
[2020-10-23] MEDS: traZODone HCL 50 MG TABLET PO (22:16)
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
[2020-10-24 06:00] VITALS: BP 132/78; BP 133/89; PULSE 65; PULSE 91; RESP 14; TEMP 35.6; TEMP 36.8; O2SAT 99
[2020-10-24 09:01] LABS: Cholesterol 241 mg/dL; HDL Cholesterol 92 mg/dL; LDL Cholesterol Calculated 136 mg/dl; Triglycerides 69 mg/dL
[2020-10-24 09:28] LABS: Thyroid Stimulating Hormone 1.91 uIU/mL (0.32-4.0)
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
[2020-10-24 17:00] VITALS: BP 133/87; PULSE 77
[2020-10-24] MEDS: traZODone HCL 50 MG TABLET PO (22:21)
[2020-10-25 03:27] LABS: Estimated Average Glucose 103 mg/dL; Hemoglobin A1c % 5.2 %
[2020-10-25 03:52] LABS: Folate 8.1 ng/mL (> or = 4.0); Vitamin B12 277 pg/mL (200-900)
[2020-10-25 06:00] VITALS: BP 130/73; PULSE 68; RESP 16; TEMP 35.9; O2SAT 96
--- NOTE | 2020-10-25 10:15 | P.PNPSI_ITS ---
Subjective Subjective Date of Service: 10/25/20 Reason For Visit: SI/UTI Subjective Notes: Smith Warning, Conditional Voluntary and 3 Day Healthcare Proxy: No Guardianship: No Interim History: Pt depressed disheveled overwhelmed difficulty taking in info denies active si Medication Compliance: No Side effects from medications: No Attending Groups: No Review of Systems Acute medical concerns: Yes urinary frequency Review of Systems Review of Systems Constitutional : No Fever, No Chills ENT/Mouth : No Ear Pain, No Nasal Congestion, No sore throat Eyes: No Eye Pain, No Swelling, No Redness Cardiovascular : No Chest Pain, No SOB Respiratory : No Cough, No Sputum, No Dyspnea Gastrointestinal : No ingestions, No Nausea, No Vomiting, No Diarrhea, No Hematochezia, No Melena Genitourinary :Positive urinary frequency, No Dysuria, No Hematuria Musculoskeletal : No Myalgias Skin : No Skin Lesions, No rash Neuro :reports many years of numbness tingling in feet and ankles- had emg did not f/u with neurology, No Dizziness, No Headache Psych : + Anxiety, + Depression, + SI, No thoughts of self injury, No HI, No AVH, Heme/Lymph: No Lymphadenopathy Endocrine : no sweats Yes all other systems are reviewed and are negative Mental Status Exam Mental Status Exam Patient Appearance: Disheveled and Unkempt Patient Orientation: Person, Place, Time and Situation Level of Consciousness: Awake and Restless Patient Behavior: Talkative, Restless, Anxious and Isolative Mood Description: Anxious, Angry (irritable at times), Sad and Apprehensive Affect Description: Depressed, Anxious and Flat Patient Cognition Impaired: No Ability to Follow Directions: Good Speech Pattern: Perseverating and Excessive Memory Description: Intact Hallucinations: None Thought Process: Rumination Depressive Symptoms: Increased Anxiety, Increased Irritability, Hopelessness and Thoughts of /Suicide Judgement: Fair Judgement and Insight: poor insight into tx and what is possible Diagnostics Vital Signs (24Hr): Vital Signs - 24 hr 10/24/20 17:00 10/25/20 06:00 Temperature 96.6 F L Pulse Rate 77 68 Respiratory Rate 16 Blood Pressure 133/87 130/73 Pulse Oximetry 96 Body Mass Index 22.7 Labs Results: 10/23/20 09:55 10/23/20 09:55 Labs: Laboratory Results - last 48 hr 10/23/20 10/23/20 10/23/20 09:46 09:46 09:55 Sodium 141 Potassium 5.2 H D Chloride 107 Carbon Dioxide 27 Anion Gap 12 BUN 12 Creatinine 0.86 Estim Creat Clear Calc 84.0 Estimated GFR > 60 Random Glucose 102 Estimat Average Glucose Hemoglobin A1c % Calcium 9.2 Magnesium 2.1 Total Bilirubin 0.5 AST 15 ALT 20 Alkaline Phosphatase 53 Total Protein 6.2 L Albumin 4.2 Triglycerides Cholesterol LDL Cholesterol, Calc HDL Cholesterol Lipase 56 Vitamin B12 Folate TSH Urine Color YELLOW Urine Appearance CLEAR Urine pH 6.0 Ur Specific Wing 1.025 Urine Protein NEG Urine Glucose (UA) NEG Urine Ketones NEG Urine Blood 1+ H Urine Nitrite NEG Ur Leukocyte Esterase NEG Urine RBC 1-4 Urine WBC 0-2 Ur Squamous Epith Cells TRACE Urine Bacteria TRACE Urine Mucus 1+ Urine Opiates Screen Not Detected Urine Fentanyl Screen Not Detected Ur Barbiturates Screen Not Detected Ur Phencyclidine Scrn Not Detected Ur Amphetamines Screen Not Detected U Benzodiazepines Scrn Not Detected Urine Cocaine Screen Not Detected U Marijuana (THC) Screen Not Detected Ethyl Alcohol COVID-19 ([facility]) COVID-Nearlyweds 10/23/20 10/23/20 10/24/20 09:55 09:55 08:23 Sodium Potassium Chloride Carbon Dioxide Anion Gap BUN Creatinine Estim Creat Clear Calc Estimated GFR Random Glucose Estimat Average Glucose 103 Hemoglobin A1c % 5.2 Calcium Magnesium Total Bilirubin AST ALT Alkaline Phosphatase Total Protein Albumin Triglycerides Cholesterol LDL Cholesterol, Calc HDL Cholesterol Lipase Vitamin B12 Folate TSH Urine Color Urine Appearance Urine pH Ur Specific Wing Urine Protein Urine Glucose (UA) Urine Ketones Urine Blood Urine Nitrite Ur Leukocyte Esterase Urine RBC Urine WBC Ur Squamous Epith Cells Urine Bacteria Urine Mucus Urine Opiates Screen Urine Fentanyl Screen Ur Barbiturates Screen Ur Phencyclidine Scrn Ur Amphetamines Screen U Benzodiazepines Scrn Urine Cocaine Screen U Marijuana (THC) Screen Ethyl Alcohol < 10 COVID-19 ([facility]ARAH) Negative COVID-Nearlyweds See Note 10/24/20 10/24/20 08:23 08:23 Sodium Potassium Chloride Carbon Dioxide Anion Gap BUN Creatinine Estim Creat Clear Calc Estimated GFR Random Glucose Estimat Average Glucose Hemoglobin A1c % Calcium Magnesium Total Bilirubin AST ALT Alkaline Phosphatase Total Protein Albumin Triglycerides 69 Cholesterol 241 LDL Cholesterol, Calc 136 HDL Cholesterol 92 D Lipase Vitamin B12 277 Folate 8.1 TSH 1.91 Urine Color Urine Appearance Urine pH Ur Specific Wing Urine Protein Urine Glucose (UA) Urine Ketones Urine Blood Urine Nitrite Ur Leukocyte Esterase Urine RBC Urine WBC Ur Squamous Epith Cells Urine Bacteria Urine Mucus Urine Opiates Screen Urine Fentanyl Screen Ur Barbiturates Screen Ur Phencyclidine Scrn Ur Amphetamines Screen U Benzodiazepines Scrn Urine Cocaine Screen U Marijuana (THC) Screen Ethyl Alcohol COVID-19 ([facility]) COVID-19 Clin Com Medications Medications Current Medications Generic Name Dose Route Start Last Admin Trade Name Freq PRN Reason Stop Dose Admin Acetaminophen 650 mg 10/23/20 19:30 Acetaminophen 325 Mg Tablet PO Q6H PRN Headache/Pain Mild Scale (1-3) Al Hydroxide/Mg Hydroxide 30 ml 10/23/20 19:30 Magnesium Hydrox/Alum Hydrox 30 Ml Oral.Susp PO Q6H PRN Heartburn/Nausea Cyanocobalamin 1,000 mcg 10/24/20 09:00 10/25/20 07:49 Cyanocobalamin (Vitamin B-12) 1,000 Mcg Tablet PO Not Given DAILY LASHELL Hydroxyzine HCl 25 mg 10/23/20 19:30 Hydroxyzine Hcl 25 Mg Tablet PO Q6H PRN Anxiety Magnesium Hydroxide 30 ml 10/23/20 19:30 Milk Of Magnesia 30 Ml Oral.Susp PO DAILY PRN Constipation Trazodone HCl 50 mg 10/23/20 19:30 10/24/20 22:21 Trazodone Hcl 50 Mg Tablet PO 50 mg BEDTIME PRN Administration Insomnia Allergies Allergies Allergy/AdvReac Type Severity Reaction Status Date / Time No Known Allergies Allergy Verified 10/11/20 15:33 Assessment & Plan Assessment & Plan (1) PTSD (post-traumatic stress disorder): Status: Acute Code(s): F43.10 - Post-traumatic stress disorder, unspecified Assessment and Plan: encourage IT consider php education medication (2) Suicidal ideation: Status: Acute Code(s): R45.851 - Suicidal ideations Assessment and Plan: asses safety (3) Major depression: Status: Acute Code(s): F32.9 - Major depressive disorder, single episode, unspecified Assessment and Plan: pt is 60 yo male with MDD and PTSD in addition to 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
--- NOTE | 2020-10-25 12:46 | CA_ITS ---
Transthoracic Echocardiogram Patient (Last, First, Middle): Сергей Cline, Gender: Male Date of : 1960 Age: 60 Procedure Date: 10/25/2020 Procedure Type: Transthoracic Echocardiogram Location: m5 Height: 170.18 cm Weight: 65.77 kg BSA: 1.76 m2 Heart Rate: bpm BP: 130 / 73 mmHg Air Carrier Inspector: MARIANA Referring MD: Carlos Villegas MD Symptoms: ? hx HI c/o fatigue sob Conclusions: - Normal left ventricular size, thickness, and systolic function. - The basal inferior segment is akinetic. - Normal right ventricular cavity size and systolic function. Findings Left Ventricle Normal left ventricular size, thickness, and systolic function. The visually estimated ejection fraction is between 60-65%. There is evidence of regional wall motion abnormalities. Diastolic function is indeterminate on the basis of available data. E/E prime ratio is between 8 and 15 consistent with indeterminate filling pressures. Wall Motion Rest Echo Findings The basal inferior segment is akinetic. Right Ventricle Normal right ventricular cavity size and systolic function. Atria The left atrium is normal in size. The right atrium is mildly dilated. Aortic Valve There is mild calcification of the aortic valve. There is mild aortic valve stenosis. There is no aortic valve regurgitation. Mitral Valve There is moderate mitral annular calcification. There is no mitral valve regurgitation. There is no mitral valve stenosis. Pulmonic Valve Normal pulmonic valve structure and function. There is trace pulmonic valve regurgitation. Tricuspid Valve Normal tricuspid valve structure and function. There is trace tricuspid valve regurgitation. Normal right atrial pressure. There is no evidence of pulmonary hypertension. Great Vessels All visible segments of the aorta are normal in size. The visualized portions of the pulmonary artery and branches are normal. Venous The inferior vena cava is normal in size and collapses greater than 50% with inspiration. Pericardium/Pleural Normal pericardial structure. There is no evidence of pericardial effusion. Prior Study Comparison No prior study available for comparison. Measurements 2D Linear Measurements RVIDd: 2.43 RVIDd Index: 1.38 IVSd: 1.11 0.6-0.9/0.6-1.0 cm LVIDd: 5.19 3.9-5.3/4.2-5.9 cm LVIDd Index: 2.95 2.4-3.2/2.2-3.1 cm/m2 LVIDs: 3.29 2.0-3.6 cm LVPWd: 0.90 0.7-1.1 cm Ao Root: 3.30 2.1-3.5 cm LA Diam: 3.70 2.7-3.8/3.0-4.0 cm LAIDs Index: 2.10 1.5-2.3 cm/m2 LV Mass: 243.43 67-162/88-224 g LV Mass Index: 138.32 43-95/49-115 g/m2 LVOT Diam: 2.00 3.0+(-)1.3 cm 2D Systolic Function EF 4C: 67.90 >55% EF 2C: 71.50 >55% EF BiP: 71.10 >55% Mitral Valve MV Pk E: 0.72 MV PK A: 0.86 MV Decel Time: 227.00 E/A: 0.80 E'Lateral: 9.03 E'Medial: 6.20 E/E' Med: 11.60 E/E' Lat: 8.00 Aortic Valve AoV Pk Brent: 2.09 AoV Mn Brent: 1.58 AoV VTI: 0.45 AoV Pk Grad: 17.00 Aov Mn Grad: 11.00 GRICELDA Cont.VTI: 1.83 LVOT LVOT Pk Brent: 1.17 LVOT Mn Brent: 0.81 LVOT VTI: 0.26 LVOT Pk Grad: 5.00 LVOT Mn Grad: 3.00 LVOT Diam: 2.00 LVOT Area: 3.14 Diastolic Function MV Pk E: 0.72 MV Pk A: 0.86 E/A: 0.80 E'Medial: 6.20 E/E' Med: 11.60 E' Laterial: 9.03 E/E' Lat: 8.00 Right Ventricle TAPSE (mm): 31.00 TVS' Brent: 12.20 Tricuspid Valve TR Pk Brent: 2.31 TR Pk Grad: 21.00 RA Press: 3.00 RVSP: 24.00 Great Vessels Aorta Ao Root-2D: 3.30 2.0-3.7 cm Ao Asc: 3.10 2.1-3.4 cm Ao Arch: 2.90 Updated in Other Vendor System with Status of Final Adolph Marroquin MD electronically signed on 10/26/2020 1:48:53 PM with status of Final
--- NOTE | 2020-10-25 13:29 | PC.NURSE ---
Signed 3-day up on 10/28. , MARITZA, UR aware.
[2020-10-25 18:00] VITALS: BP 139/71; PULSE 72; RESP 16; TEMP 36.1; O2SAT 98
[2020-10-25] MEDS: traZODone HCL 50 MG TABLET PO (21:59)
[2020-10-26 06:00] VITALS: BP 139/71; PULSE 72; TEMP 36.1; O2SAT 98
--- NOTE | 2020-10-26 08:00 | ECG_ITS ---
Test Reason : HX NH Blood Pressure : / mmHG Vent. Rate : 071 BPM Atrial Rate : 071 BPM P-R Int : 122 ms QRS Dur : 106 ms QT Int : 400 ms P-R-T Axes : 065 032 -21 degrees QTc Int : 434 ms Normal sinus rhythm with sinus arrhythmia Incomplete right bundle branch block Inferior infarct (cited on or before 24-SEP-2020) Abnormal ECG When compared with ECG of 24-SEP-2020 19:09, No significant change was found Referred By: Carlos Villegas Electronically Signed By:JA REIS
[2020-10-26] MEDS: Milk of Magnesia 30 ML ORAL.SUSP PO (08:46)
--- NOTE | 2020-10-26 10:40 | HO.PSYCHPN ---
Subjective Subjective Date of Service: 10/26/20 Reason For Visit: depression si Subjective Notes: Conditional Voluntary and 3 Day Healthcare Proxy: No Guardianship: No Interim History: Pt depressed disheveled overwhelmed difficulty taking in info denies active si Medication Compliance: No Attending Groups: Intermittent Review of Systems abn ekg inc potassium Review of Systems Review of Systems Constitutional : No Fever, No Chills ENT/Mouth : No Ear Pain, No Nasal Congestion, No sore throat Eyes: No Eye Pain, No Swelling, No Redness Cardiovascular : No Chest Pain, No SOB Respiratory : No Cough, No Sputum, No Dyspnea Gastrointestinal : No ingestions, No Nausea, No Vomiting, No Diarrhea, No Hematochezia, No Melena Genitourinary :Positive urinary frequency, No Dysuria, No Hematuria Musculoskeletal : No Myalgias Skin : No Skin Lesions, No rash Neuro :reports many years of numbness tingling in feet and ankles- had emg did not f/u with neurology, No Dizziness, No Headache Psych : + Anxiety, + Depression, + SI, No thoughts of self injury, No HI, No AVH, Heme/Lymph: No Lymphadenopathy Endocrine : no sweats Yes all other systems are reviewed and are negative Mental Status Exam Mental Status Exam Patient Appearance: Disheveled and Unkempt Patient Orientation: Person, Place, Time and Situation Level of Consciousness: Awake and Restless Patient Behavior: Talkative, Restless, Anxious and Isolative Mood Description: Anxious, Angry (irritable at times), Sad and Apprehensive Affect Description: Depressed, Anxious and Flat Patient Cognition Impaired: No Ability to Follow Directions: Good Speech Pattern: Perseverating and Excessive Memory Description: Intact Thought Process: Intact, Rumination and Goal Oriented Thought Content: positive for Obsessional Thoughts, positive for Preoccupation and positive for Suicidal Ideation (denies active si ) Depressive Symptoms: Increased Anxiety, Increased Fatigue and Loss of Energy Judgement: Fair Diagnostics Vital Signs (24Hr): Vital Signs - 24 hr 10/25/20 18:00 Temperature 97 F Pulse Rate 72 Respiratory Rate 16 Blood Pressure 139/71 Pulse Oximetry 98 Body Mass Index 22.7 Labs Results: 10/23/20 09:55 10/23/20 09:55 Labs: Laboratory Results - last 48 hr 10/24/20 10/24/20 08:23 08:23 Estimat Average Glucose 103 Hemoglobin A1c % 5.2 Vitamin B12 277 Folate 8.1 Medications Medications Current Medications Generic Name Dose Route Start Last Admin Trade Name Freq PRN Reason Stop Dose Admin Acetaminophen 650 mg 10/23/20 19:30 Acetaminophen 325 Mg Tablet PO Q6H PRN Headache/Pain Mild Scale (1-3) Al Hydroxide/Mg Hydroxide 30 ml 10/23/20 19:30 Magnesium Hydrox/Alum Hydrox 30 Ml Oral.Susp PO Q6H PRN Heartburn/Nausea Cyanocobalamin 1,000 mcg 10/24/20 09:00 10/26/20 08:46 Cyanocobalamin (Vitamin B-12) 1,000 Mcg Tablet PO Not Given DAILY LASHELL Escitalopram Oxalate 5 mg 10/26/20 10:25 Escitalopram Oxalate 5 Mg Tablet PO DAILY LASHELL Hydroxyzine HCl 25 mg 10/23/20 19:30 Hydroxyzine Hcl 25 Mg Tablet PO Q6H PRN Anxiety Magnesium Hydroxide 30 ml 10/23/20 19:30 10/26/20 08:46 Milk Of Magnesia 30 Ml Oral.Susp PO 30 ml DAILY PRN Administration Constipation Trazodone HCl 50 mg 10/23/20 19:30 10/25/20 21:59 Trazodone Hcl 50 Mg Tablet PO 50 mg BEDTIME PRN Administration Insomnia Allergies Allergies Allergy/AdvReac Type Severity Reaction Status Date / Time No Known Allergies Allergy Verified 10/11/20 15:33 Assessment & Plan Assessment & Plan (1) PTSD (post-traumatic stress disorder): Status: Acute Code(s): F43.10 - Post-traumatic stress disorder, unspecified Assessment and Plan: encourage IT consider php education medication (2) Suicidal ideation: Status: Acute Code(s): R45.851 - Suicidal ideations Assessment and Plan: asses safety (3) Major depression: Status: Acute Code(s): F32.9 - Major depressive disorder, single episode, unspecified Assessment and Plan: pt has been in counseling with [facility] Plan: CV 15 min check labs recommend antidepressant but pt refusing started lexapro 5 mg may do well with CBT therapy may need day treatment program aftercare planning [place] warning has 3 day denies active si encourage more contact with others consider php Greater than 50% of the session was spent on counseling and/or coordination of care Reason for contiued inpatient stay Substantial Risk for: harm to self
[2020-10-26 16:13] VITALS: BP 140/85; PULSE 87; TEMP 36.9; O2SAT 98
--- NOTE | 2020-10-26 21:50 | P.PNPSI_ITS ---
Subjective Subjective Date of Service: 10/26/20 Reason For Visit: depression si Subjective Notes: Smith Warning, Conditional Voluntary and 3 Day Healthcare Proxy: No Guardianship: No Interim History: Pt denies active si states he is feeling better but cannot explain no gross psychosis states he was speaking with therapist but no real connection Mental Status Exam Mental Status Exam Patient Appearance: Disheveled and Unkempt Patient Orientation: Person, Place, Time and Situation Level of Consciousness: Awake Patient Behavior: Appropriate, Talkative and Anxious Mood Description: Anxious, Sad and Apprehensive Affect Description: Depressed, Anxious and Flat Patient Cognition Impaired: No Ability to Follow Directions: Good Speech Pattern: Clear Memory Description: Intact Hallucinations: None Delusions: Not Present Thought Process: Intact, Rumination and Goal Oriented Thought Content: positive for Obsessional Thoughts, positive for Preoccupation and positive for Suicidal Ideation (denies active si contradicts admission hx ) Depressive Symptoms: Increased Anxiety, Increased Fatigue and Loss of Energy Judgement: Fair Judgement and Insight: improving again refused medication could not explain but accepts dx Diagnostics Vital Signs (24Hr): Vital Signs - 24 hr 10/26/20 06:00 10/26/20 16:13 Temperature 97 F 98.4 F Pulse Rate 72 87 Blood Pressure 139/71 140/85 H Pulse Oximetry 98 98 Body Mass Index 22.7 Labs Results: 10/23/20 09:55 10/23/20 09:55 Labs: Laboratory Results - last 48 hr 10/24/20 10/24/20 08:23 08:23 Estimat Average Glucose 103 Hemoglobin A1c % 5.2 Vitamin B12 277 Folate 8.1 Imaging Radiology Impressions: see echo akinetic inf wall Medications Medications Current Medications Generic Name Dose Route Start Last Admin Trade Name Freq PRN Reason Stop Dose Admin Acetaminophen 650 mg 10/23/20 19:30 Acetaminophen 325 Mg Tablet PO Q6H PRN Headache/Pain Mild Scale (1-3) Al Hydroxide/Mg Hydroxide 30 ml 10/23/20 19:30 Magnesium Hydrox/Alum Hydrox 30 Ml Oral.Susp PO Q6H PRN Heartburn/Nausea Cyanocobalamin 1,000 mcg 10/24/20 09:00 10/26/20 08:46 Cyanocobalamin (Vitamin B-12) 1,000 Mcg Tablet PO Not Given DAILY [facility] Escitalopram Oxalate 5 mg 10/26/20 10:25 10/26/20 13:00 Escitalopram Oxalate 5 Mg Tablet PO Not Given DAILY LASHELL Hydroxyzine HCl 25 mg 10/23/20 19:30 Hydroxyzine Hcl 25 Mg Tablet PO Q6H PRN Anxiety Magnesium Hydroxide 30 ml 10/23/20 19:30 10/26/20 08:46 Milk Of Magnesia 30 Ml Oral.Susp PO 30 ml DAILY PRN Administration Constipation Trazodone HCl 50 mg 10/23/20 19:30 10/25/20 21:59 Trazodone Hcl 50 Mg Tablet PO 50 mg BEDTIME PRN Administration Insomnia Allergies Allergies Allergy/AdvReac Type Severity Reaction Status Date / Time No Known Allergies Allergy Verified 10/11/20 15:33 Assessment & Plan Assessment & Plan (1) PTSD (post-traumatic stress disorder): Status: Acute Code(s): F43.10 - Post-traumatic stress disorder, unspecified Assessment and Plan: encourage IT consider php education medication (2) Suicidal ideation: Status: Acute Code(s): R45.851 - Suicidal ideations Assessment and Plan: asses safety (3) Major depression: Status: Acute Code(s): F32.9 - Major depressive disorder, single episode, unspecified Assessment and Plan: pt has been in counseling with [facility] Plan: CV 15 min check labs recommend antidepressant but pt refusing started lexapro 5 mg may do well with CBT therapy no computer or smart phone for php aftercare planning smith warning has 3 day denies active si encourage more contact with others consider php encourage med trial asses safety has 3 day smith given ECHO C/W [facility] WILL NEED OUTPT F/U Greater than 50% of the session was spent on counseling and/or coordination of care Reason for contiued inpatient stay Substantial Risk for: harm to self and rapid decompensation
[2020-10-26] MEDS: traZODone HCL 50 MG TABLET PO (22:42)
[2020-10-27 06:00] VITALS: BP 129/84; PULSE 71; RESP 16; TEMP 35.8; O2SAT 98
--- NOTE | 2020-10-27 14:01 | P.PNPSI_ITS ---
Subjective Subjective Date of Service: 10/27/20 Reason For Visit: depression si Subjective Notes: 3 Day Interim History: pt seen on 10/27/20 internal communications writer covering for Dr. Villegas Patient reports that he is in a good mood and that his depression remains resolved. He said he was never really suicidal but rather that had a ?momentary feeling of helplessness ? reflecting on his life, but that he had come to accept that his life was not going to fitter and turner has he had originally planned and he was now Ok with that. Patient reiterated that he did not need medications, that he had gotten through difficult times in the past without medications and that he was going to be alright this time as well. Pt shared that he has been able to work things out with therapy felt comfortable continuing with this mode of treatment. He also told internal communications writer that although others had mentioned his house was totally filled with stuff, that he was not a hoarder and that things were neatly placed. Patient reported he was safe and stable for discharge and plans to return home; as he has a 3 day notice in, he agrees with discharge today. Tube Machine Operator discussed case with Dr. Villegas who reported that patient was appropriate for discharge. Mental Status Exam Mental Status Exam Narrative: Pt is alert and oriented; behavior is cooperative, friendly and calm; patient is not in distress; dressed in hospital gown with long hair and adequate hygiene; mood is described as good and affect congruent; eye contact appropriate; Speech is normal rate, volume and prosody and not pressured; no ps ychomotor agitation/retardation present; thought process is organized, linear, logical and goal directed. Thought content is on discharge; otherwise TC relevant to pertinent topics and without any delusional content, paranoid ideations or grandiosity; denies any SI/HI. There is no evidence of perceptual disturbance. ?Patients insight and judgment appear intact. Data Diagnostics Vital Signs (24Hr): Vital Signs - 24 hr 10/26/20 16:13 10/27/20 06:00 Temperature 98.4 F 96.4 F L Pulse Rate 87 71 Respiratory Rate 16 Blood Pressure 140/85 H 129/84 Pulse Oximetry 98 98 Body Mass Index 22.7 Labs Results: 10/23/20 09:55 10/23/20 09:55 Medications Medications Current Medications Generic Name Dose Route Start Last Admin Trade Name Freq PRN Reason Stop Dose Admin Acetaminophen 650 mg 10/23/20 19:30 Acetaminophen 325 Mg Tablet PO Q6H PRN Headache/Pain Mild Scale (1-3) Al Hydroxide/Mg Hydroxide 30 ml 10/23/20 19:30 Magnesium Hydrox/Alum Hydrox 30 Ml Oral.Susp PO Q6H PRN Heartburn/Nausea Cyanocobalamin 1,000 mcg 10/24/20 09:00 10/27/20 10:04 Cyanocobalamin (Vitamin B-12) 1,000 Mcg Tablet PO Not Given DAILY LASHELL Escitalopram Oxalate 5 mg 10/26/20 10:25 10/27/20 10:04 Escitalopram Oxalate 5 Mg Tablet PO Not Given DAILY LASHELL Hydroxyzine HCl 25 mg 10/23/20 19:30 Hydroxyzine Hcl 25 Mg Tablet PO Q6H PRN Anxiety Magnesium Hydroxide 30 ml 10/23/20 19:30 10/26/20 08:46 Milk Of Magnesia 30 Ml Oral.Susp PO 30 ml DAILY PRN Administration Constipation Trazodone HCl 50 mg 10/23/20 19:30 10/26/20 22:42 Trazodone Hcl 50 Mg Tablet PO 50 mg BEDTIME PRN Administration Insomnia Allergies Allergies Allergy/AdvReac Type Severity Reaction Status Date / Time No Known Allergies Allergy Verified 10/11/20 15:33 Assessment & Plan Assessment & Plan (1) PTSD (post-traumatic stress disorder): Status: Chronic Code(s): F43.10 - Post-traumatic stress disorder, unspecified Assessment and Plan: encourage IT consider php education medication (2) Suicidal ideation: Status: Resolved Code(s): R45.851 - Suicidal ideations Assessment and Plan: asses safety (3) Major depression: Status: Chronic Code(s): F32.9 - Major depressive disorder, single episode, unspecified Assessment and Plan: Impression: Patient is a 60-year-old male with history of depression and PTSD who presented for depression with SI.? This internal communications writer is covering for Dr. Villegas who admitted and followed patient until day of discharge.? Patient initially was on a CV.? On admission patient's SI resolved and he later said he was never really actually suicidal.? His? depression soon abated and by discharge had fully resolved.? Patient was offered SSRI however he refused saying he did not need medications and that therapy had worked well for him and he felt comfortable continuing with this mode of treatment. He put in a 3 day notice.He explained that prior to admission he had a ?momentary feeling of helplessness ? but that he had come to accept that his life was not going to fitter and turner has he had originally planned and he was now Ok with that.? He also shared that he had gotten through difficult times in the past without medications and that he was going to be all right this time as well.? some frustration with staff since he was hoping for help to get Disability Services, however he excepted that this was not currently achievable and would work on as an outpatient.? Patient requested discharge saying that he was mostly in a good mood and that his depression and SI remained resolved.? Tube Machine Operator discussed case with Dr. Villegas who reported that patient was appropriate for discharge.? Patient was not in imminent risk for harm to self or others and his request for discharge honored. Tube Machine Operator discussed patient's cardiac workup and mildly elevated potassium; patient was comfortable with following up with his outpatient PCP Greater than 50% of the session was spent on counseling and/or coordination of care Reason for contiued inpatient stay Substantial Risk for: stable for discharge
--- NOTE | 2020-10-27 14:01 | PM.PSYDC ---
DS: Providers Provider Date of Service: 10/27/20 Date of admission: 10/23/20 19:30 Date of discharge: 10/27/20 Primary care physician: Unknown Physician Attending physician on admission: Carlos Villegas Attending physician on discharge: Yvan Guzman DS: Diagnosis Discharge Diagnosis (1) Major depression: Status: Chronic (2) PTSD (post-traumatic stress disorder): Status: Chronic (3) Suicidal ideation: Status: Resolved Mental Status Exam Mental Status Exam Narrative: Pt is alert and oriented; behavior is cooperative, friendly and calm; patient is not in distress; dressed in hospital gown with long hair and adequate hygiene; mood is described as good and affect congruent; eye contact appropriate; Speech is normal rate, volume and prosody and not pressured; no psychomotor agitation/retardation present; thought process is organized, linear, logical and goal directed. Thought content is on discharge; otherwise TC relevant to pertinent topics and without any delusional content, paranoid ideations or grandiosity; denies any SI/HI. There is no evidence of perceptual disturbance. ?Patients insight and judgment appear intact. Data Data Completed and Pending Completed studies during hospitalization [Text1]: 10/23/20 10/23/20 10/23/20 09:46 09:46 09:55 WBC 5.9 RBC 4.38 L Hgb 14.0 Hct 42.6 MCV 97.3 MCH 32.0 MCHC 32.9 RDW 12.3 Plt Count 238 MPV 9.3 L Immature Gran % (Auto) 0.2 Neut % (Auto) 65.1 Lymph % (Auto) 24.2 [place] % (Auto) 9.0 Eos % (Auto) 1.0 Baso % (Auto) 0.5 Lymph # (Auto) 1.4 [place] # (Auto) 0.5 Eos # (Auto) 0.1 Baso # (Auto) 0.0 Abs Immat Gran (auto) 0.01 Absolute Neuts (auto) 3.9 Absolute Nucleated RBC 0.000 Nucleated RBC % (auto) 0.0 Sodium Potassium Chloride Carbon Dioxide Anion Gap BUN Creatinine Estim Creat Clear Calc Estimated GFR Random Glucose Estimat Average Glucose Hemoglobin A1c % Calcium Magnesium Total Bilirubin AST ALT Alkaline Phosphatase Total Protein Albumin Triglycerides Cholesterol LDL Cholesterol, Calc HDL Cholesterol Lipase Vitamin B12 Folate TSH Urine Color YELLOW Urine Appearance CLEAR Urine pH 6.0 Ur Specific [place] 1.025 Urine Protein NEG Urine Glucose (UA) NEG Urine Ketones NEG Urine Blood 1+ H Urine Nitrite NEG Ur Leukocyte Esterase NEG Urine RBC 1-4 Urine WBC 0-2 Ur Squamous Epith Cells TRACE Urine Bacteria TRACE Urine Mucus 1+ Urine Opiates Screen Not Detected Urine Fentanyl Screen Not Detected Ur Barbiturates Screen Not Detected Ur Phencyclidine Scrn Not Detected Ur Amphetamines Screen Not Detected U Benzodiazepines Scrn Not Detected Urine Cocaine Screen Not Detected U Marijuana (THC) Screen Not Detected Ethyl Alcohol COVID-19 ([facility]) COVID-19 Clin Com 10/23/20 10/23/20 10/23/20 09:55 09:55 09:55 WBC RBC Hgb Hct MCV MCH MCHC RDW Plt Count MPV Immature Gran % (Auto) Neut % (Auto) Lymph % (Auto) [place] % (Auto) Eos % (Auto) Baso % (Auto) Lymph # (Auto) [place] # (Auto) Eos # (Auto) Baso # (Auto) Abs Immat Gran (auto) Absolute Neuts (auto) Absolute Nucleated RBC Nucleated RBC % (auto) Sodium 141 Potassium 5.2 H D Chloride 107 Carbon Dioxide 27 Anion Gap 12 BUN 12 Creatinine 0.86 Estim Creat Clear Calc 84.0 Estimated GFR > 60 Random Glucose 102 Estimat Average Glucose Hemoglobin A1c % Calcium 9.2 Magnesium 2.1 Total Bilirubin 0.5 AST 15 ALT 20 Alkaline Phosphatase 53 Total Protein 6.2 L Albumin 4.2 Triglycerides Cholesterol LDL Cholesterol, Calc HDL Cholesterol Lipase 56 Vitamin B12 Folate TSH Urine Color Urine Appearance Urine pH Ur Specific [place] Urine Protein Urine Glucose (UA) Urine Ketones Urine Blood Urine Nitrite Ur Leukocyte Esterase Urine RBC Urine WBC Ur Squamous Epith Cells Urine Bacteria Urine Mucus Urine Opiates Screen Urine Fentanyl Screen Ur Barbiturates Screen Ur Phencyclidine Scrn Ur Amphetamines Screen U Benzodiazepines Scrn Urine Cocaine Screen U Marijuana (THC) Screen Ethyl Alcohol < 10 COVID-19 ([facility]) Negative COVID-19 Clin Com See Note 10/24/20 10/24/20 10/24/20 08:23 08:23 08:23 WBC RBC Hgb Hct MCV MCH MCHC RDW Plt Count MPV Immature Gran % (Auto) Neut % (Auto) Lymph % (Auto) [place] % (Auto) Eos % (Auto) Baso % (Auto) Lymph # (Auto) [place] # (Auto) Eos # (Auto) Baso # (Auto) Abs Immat Gran (auto) Absolute Neuts (auto) Absolute Nucleated RBC Nucleated RBC % (auto) Sodium Potassium Chloride Carbon Dioxide Anion Gap BUN Creatinine Estim Creat Clear Calc Estimated GFR Random Glucose Estimat Average Glucose 103 Hemoglobin A1c % 5.2 Calcium Magnesium Total Bilirubin AST ALT Alkaline Phosphatase Total Protein Albumin Triglycerides 69 Cholesterol 241 LDL Cholesterol, Calc 136 HDL Cholesterol 92 D Lipase Vitamin B12 277 Folate 8.1 TSH 1.91 Urine Color Urine Appearance Urine pH Ur Specific [place] Urine Protein Urine Glucose (UA) Urine Ketones Urine Blood Urine Nitrite Ur Leukocyte Esterase Urine RBC Urine WBC Ur Squamous Epith Cells Urine Bacteria Urine Mucus Urine Opiates Screen Urine Fentanyl Screen Ur Barbiturates Screen Ur Phencyclidine Scrn Ur Amphetamines Screen U Benzodiazepines Scrn Urine Cocaine Screen U Marijuana (THC) Screen Ethyl Alcohol COVID-19 ([facility]) COVID-19 Clin Com DS: Summary Hospital Course Hospital Course: Patient is a 60-year-old male with history of depression and PTSD who presented for depression with SI. This sign writer letterer or painter is covering for Dr. Villegas who admitted and followed patient until day of discharge. Patient initially was on a CV. On admission patient's SI resolved and he later said he was never really actually suicidal. His depression soon abated and by discharge had fully resolved. Patient was offered SSRI however he refused saying he did not need medications and that therapy had worked well for him and he felt comfortable continuing with this mode of treatment. He put in a 3 day notice.He explained that prior to admission he had a ?momentary feeling of helplessness ? but that he had come to accept that his life was not going to sheet turner has he had originally planned and he was now Ok with that. He also shared that he had gotten through difficult times in the past without medications and that he was going to be all right this time as well. some frustration with staff since he was hoping for help to get Disability Services, however he excepted that this was not currently achievable and would work on as an outpatient. Patient requested discharge saying that he was mostly in a good mood and that his depression and SI remained resolved. Net Front End Developer discussed case with Dr. Villegas who reported that patient was appropriate for discharge. Patient was not in imminent risk for harm to self or others and his request for discharge honored. Status at Discharge Functional status at discharge: independent ambulation Overall status at discharge: patient is back to baseline Time Spent with Patient Time attestation: Total time spent providing and/or coordinating discharge services: Time spent: Greater than 30 minutes Discharge Plan Discharge Patient Disposition: Home, Self-Care Discharge Diagnosis: MDD, recurrent, severe in full remission Referrals: [facility] [Other] - 11/09/20 12:00 pm (Therapists is [facility], next appointment is scheduled for 11/09/20 @ 12 PM.) [facility] [Other] - 10/29/20 (Please call your community health worker Brittany Bryson as needed.) [facility] [Other] - 10/29/20 (Please call your Access navigator James Green as needed for follow up and to connect with additional services.) [facility] [Other] - 1 Week (Please call employment law attorney office to discuss support in obtaining social security disability.) Yoav Guardado, RULA-BC [Nurse Practitioner] - 1 Week (OFFICE AWARE OF FOLLOW-UP APPOINTMENT AND WILL CALL PATIENT WITH THE DATE.) Discharge Medications: Discontinued cyanocobalamin (vitamin B-12) 1,000 mcg capsule 1,000 mcg PO DAILY RF: 0 Discharge Orders: Discharge Order (Routine); Ordered 10/27/20 Ordered By: Yvan Guzman Diet: regular diet Activity on Discharge: As tolerated Stand Alone Forms: Patient Portal Discharge page, Community Support Care Plan Goals: Maintain mood and safe behaviors Take medications as prescribed Practice coping skills Continue with outpatient providers and reach out to them as needed Health Concerns: Mood stability and behaviors Tingling in B/L legs/feet mildly elevated potassium Plan of Treatment: Follow up with your PCP and psychiatric provider as discussed regarding above concerns Take medications as prescribed Assessment: Patient was interviewed prior to discharge and found to be fully oriented and without any SI or HI. Patient has insight and demonstrates good judgment in terms of wanting to pursue treatment. Patient is not in imminent risk of harm to self or others and has a safety plan that includes presenting to the closest ER or calling 911 if feeling unsafe. Patient has been observed closely by nursing and unit staff throughout admission; patient has not engaged in any behaviors that suggest dangerousness to self or others and has demonstrated appropriate behaviors and impulse control. Discharge Date/Time: 10/27/20 14:45
== END 2020-10-27 14:45 | disposition home or self-care (01) | DRG 751 ==
LOC: HO.ED 08:06 → HO.PM5 20:15
PROVIDERS: Physician Assistant Medical; Social Worker; Admitting Provider Psychiatry & Neurology Psychiatry; Emergency Provider Internal Medicine; Visit Provider Psychiatry & Neurology Psychiatry
DX: F33.2 Major depressive disorder, recurrent severe without psychotic features (principal); R45.851 Suicidal ideations; F17.210 Nicotine dependence, cigarettes, uncomplicated; F43.10 Post-traumatic stress disorder, unspecified; Z71.6 Tobacco abuse counseling; Z20.822 Contact with and (suspected) exposure to COVID-19
CPT/HCPCS: 36415; 80053; 80061; 80307; 81001; 82077; 82607; 82746; 83036; 83690; 83735; 84443; 85025; 87635; 93005; 93306; 99285

== ENCOUNTER 2020-11-29 14:09 | Outpatient (REF) | payer OTHER, SELFPAY ==
[2020-11-29 16:46] LABS: Anion Gap 14 (12-20); Blood Urea Nitrogen 19 mg/dL (9-16); Carbon Dioxide 24 mmol/L (22-29); Chloride 104 mmol/L (96-108); Estimated Glomerular Filt Rate > 60; Glucose Random 89 mg/dL (60-115); Sodium 138 mmol/L (135-145)
[2020-11-29 17:30] LABS: Vitamin B12 162 pg/mL (200-900)
[2020-11-29 17:39] LABS: Erythrocyte Sedimentation Rate 6 MM/HR (0-15)
[2020-12-01 01:16] LABS: Lyme Abs Screen <0.90 index
[2020-12-02 14:52] LABS: IgA 176 mg/dL (70-320); IgG 651 mg/dL (600-1540); IgM 40 mg/dL (50-300)
== END 2020-11-29 14:10 | disposition home or self-care (01) ==
LOC: HO.HMGCLDS 14:09
PROVIDERS: PCP Nurse Practitioner Family; Visit Provider Psychiatry & Neurology Neurology
DX: G62.9 Polyneuropathy, unspecified (principal)
CPT/HCPCS: 36415; 80051; 82565; 82607; 82746; 82784; 82947; 84520; 85652; 86334; 86617; 86618

== ENCOUNTER 2020-12-07 08:33 | Outpatient (REF) | payer OTHER, SELFPAY ==
--- NOTE | ~2020-12-07 | MR_ITS ---
EXAMINATION: MR LUMBAR SPINE WITHOUT AND WITH CONTRAST CLINICAL INFORMATION: 60-year-old with lumbar radiculopathy. COMPARISON: None TECHNIQUE: MRI of the lumbar spine was obtained using routine sequences with and without contrast. Intravenous contrast: Magnevist 6.5 mL FINDINGS: Coronal Alignment: Normal Sagittal Alignment: There is 3 mm of grade 1 degenerative spondylolisthesis at L4-5 without spondylolysis. Lordotic curvature is maintained. Lumbosacral Junction: Normal Vertebral Bodies: Normal height. Disc Spaces and Endplates: There are mild degrees of disc volume loss at L2-L3, L4-L5 and L5-S1 with minimal degrees of disc desiccation at these levels and very minor degrees of the anterior marginal spondylosis. Spinal Canal: No abnormal developmental findings. Bone Marrow: No significant marrow-replacing process, bone marrow edema or worrisome bone marrow enhancement. Subcentimeter vertebral hemangioma in the T12 vertebral body noted. Conus Medullaris: Terminates at T12-L1. Morphology and signal is normal. No abnormal enhancement. Intradural Nerve Roots: Within normal limits. No abnormal intradural enhancement. No abnormal leptomeningeal enhancement. L5-S1: Radm-yj-gjedzmbq diffuse disc bulging is noted, with a central transverse enhancing annular fissure without thecal sac or neural impingement. There is minor bilateral facet arthropathy without significant spinal canal stenosis. There is shnu-[id number] bilateral neural foraminal stenosis, with mild encroachment on the exiting L5 nerve roots, left more than right. L4-L5: Unroofing of the posterior disc margin is noted consistent with grade 1 degenerative spondylolisthesis. There is superimposed posterolateral foraminal disc protrusion, right more than left with right-sided annular fissuring, with moderate flattening of the ventral dural sac. There is ligamentum flavum thickening and tojqujlb-wh-pwlztx bilateral facet arthropathy, with reactive subchondral marrow edema and enhancement within the inferior articulating facet of the left facet joint. There is moderate central spinal canal stenosis, with moderate bilateral subarticular recess stenosis. There is cwyx-rp-cowijexj bilateral neural foraminal stenosis, with mild impingement on the exiting right L4 nerve root. L3-L4: Small right-sided extraforaminal/foraminal disc protrusion noted encroaching on the inferior right neural foramen and slightly impinging on the exiting right L3 nerve root. There is associated ngvi-lt-neeuujhd right-sided neural foraminal stenosis. No significant canal stenosis or left-sided foraminal compromise. L2-L3: Minor diffuse disc bulging with minimal flattening of the ventral dural sac. No significant facet arthrosis or canal stenosis. Slight foraminal narrowing on the right without definite neural impingement. L1-L2: Small central disc herniation noted with slight flattening of the ventral dural sac. No significant facet arthrosis, canal or neuroforaminal stenosis. Paraspinal/Retroperitoneal: The visualized paravertebral soft tissues appear grossly within normal limits. Incidental note is made of numerous bilateral simple-appearing renal cysts, some of which are only partially visualized, with the largest of these on the left measuring at least 7 cm in maximum transverse dimension. A CT scan of the abdomen performed on 01/26/2010 was retrieved for comparison and demonstrates that some of the cysts on the left have increased in size from the previous study. There are probably some new cysts bilaterally since previous study. Given the appearance, and although assessment is limited, no specific followup for these is recommended based on the current ACR best practice guidelines. MR/MR lumbar spine wo/w con IMPRESSION: 1. Mild grade 1 degenerative spondylolisthesis at L4-L5 with otherwise normal spinal alignment. 2. Mild multilevel discogenic degenerative changes at L2-L3, L4-L5 and L5-S1 with mild degrees of spondylosis. Disc bulging at L5-S1, foraminal disc protrusions at L4-L5, right more the left, disc bulging at L2-L3, right lateral disc protrusion at L3-L4 and small central disc protrusion at L1-L2. 3. Lhvx-sr-asclcucv degrees of bilateral neural foraminal stenosis at L5-S1 and L4-L5 with right L4 nerve root impingement and mild encroachment on the exiting L5 nerve roots, left more than right. Mild impingement on the exiting right L3 nerve root. Qwod-kd-yehirxza foraminal narrowing on the right at L3-L4 and mild foraminal narrowing on the right at L2-L3. 4. See above for description of bilateral renal cysts.
== END 2020-12-07 08:34 | disposition home or self-care (01) ==
LOC: HO.MRI 08:33
PROVIDERS: PCP Nurse Practitioner Family; Visit Provider Psychiatry & Neurology Neurology
DX: M54.16 Radiculopathy, lumbar region (principal)
CPT/HCPCS: 72158; A9585

== ENCOUNTER → 2021-02-04 09:29 | Outpatient (BNVA) | payer OTHER, SELFPAY | PROVIDERS: PCP Nurse Practitioner Family | DX: R35.1 Nocturia (principal); N32.0 Bladder-neck obstruction | CPT/HCPCS: 99202 ==

== ENCOUNTER 2021-03-14 12:56 | Inpatient (IN) | payer OTHER, SELFPAY ==
--- NOTE | ~2021-03-14 | CT_ITS ---
EXAMINATION: CT BRAIN AND CT CERVICAL SPINE WITHOUT CONTRAST. CLINICAL INFORMATION: Numbness in the right side of the body and neck pain. COMPARISON: CT brain 09/24/2020 TECHNIQUE: 5 mm thin axial and reformatted 2 mm thin sagittal and coronal images of brain were obtained without contrast. DLP 1044 mg/cm. Axial 3 mm thin and reformatted 2 mm thin sagittal and coronal images of cervical spine were obtained. DLP 1044 FINDINGS: BRAIN: There is no acute intra-axial, extra-axial bleed, masses or midline shift. Both lateral ventricles are symmetrical in size and configuration without enlargement. There is no acute infarction evolution. There is no edema. Bone windows reveal no calvarial abnormality. There is no scalp soft tissue abnormality. Bilateral paranasal sinuses and mastoid air cells are well-aerated. CERVICAL SPINE: There is mild straightening of cervical lordosis. The vertebral heights and alignment is normal. There is loss of C5-C6 and C6-C7 disc heights with mild posterior and anterior cervical spondylosis. The craniovertebral junction and the C1-C2 alignment is normal. No lytic or sclerotic process seen. The prevertebral and paravertebral soft tissues are normal. There is mild bilateral narrowing of neural foramina C5-C6 and C6-C7 disc levels from uncovertebral hypertrophic changes. CT/CT cervical spine wo con IMPRESSION: No acute intracranial process seen. Mild straightening of cervical lordosis likely cyst from spasm. Degenerative disc changes with spondylosis C5-C6 and C6-C7 disc levels. There is bilateral narrowing of neural foramina from uncovertebral hypertrophic changes.
--- NOTE | ~2021-03-14 | CT_ITS ---
EXAMINATION: CT BRAIN AND CT CERVICAL SPINE WITHOUT CONTRAST. CLINICAL INFORMATION: Numbness in the right side of the body and neck pain. COMPARISON: CT brain 09/24/2020 TECHNIQUE: 5 mm thin axial and reformatted 2 mm thin sagittal and coronal images of brain were obtained without contrast. DLP 1044 mg/cm. Axial 3 mm thin and reformatted 2 mm thin sagittal and coronal images of cervical spine were obtained. DLP 1044 FINDINGS: BRAIN: There is no acute intra-axial, extra-axial bleed, masses or midline shift. Both lateral ventricles are symmetrical in size and configuration without enlargement. There is no acute infarction evolution. There is no edema. Bone windows reveal no calvarial abnormality. There is no scalp soft tissue abnormality. Bilateral paranasal sinuses and mastoid air cells are well-aerated. CERVICAL SPINE: There is mild straightening of cervical lordosis. The vertebral heights and alignment is normal. There is loss of C5-C6 and C6-C7 disc heights with mild posterior and anterior cervical spondylosis. The craniovertebral junction and the C1-C2 alignment is normal. No lytic or sclerotic process seen. The prevertebral and paravertebral soft tissues are normal. There is mild bilateral narrowing of neural foramina C5-C6 and C6-C7 disc levels from uncovertebral hypertrophic changes. CT/CT head/brain wo con IMPRESSION: No acute intracranial process seen. Mild straightening of cervical lordosis likely cyst from spasm. Degenerative disc changes with spondylosis C5-C6 and C6-C7 disc levels. There is bilateral narrowing of neural foramina from uncovertebral hypertrophic changes.
[2021-03-14 13:22] VITALS: BP 189/107; PULSE 79; RESP 18; TEMP 36.6; O2SAT 98; BMI 21.1
--- NOTE | 2021-03-14 20:37 | PC.NURSE ---
registration approached me to notify that the patient approached the registration desk and enquired about the wait time for the behavioral unit. Pt then stated i'm suicidal due to the wait time and the fact that I don't have heat in my house.
[2021-03-14 20:56] VITALS: BP 169/98; PULSE 58; RESP 14; TEMP 36.5; O2SAT 100
--- NOTE | 2021-03-14 21:18 | ED_ITS ---
HPI - General Adult General Chief complaint: General Medical Stated complaint: Stroke? Time Seen by Provider: 03/14/21 13:35 Source: patient Mode of arrival: ambulatory Limitations: no limitations History of Present Illness HPI narrative: Patient with history of anxiety depression PTSD with lumbar radiculopathy, hypertension not taking any medications comes to the hospital for 4 days of numbness of the right side very weak in symptoms no weakness able to ambulate no headache also feeling very anxious and depressed feels suicidal . patient been here multiple times for same depression and suicidal feeling/anxie ty patient has numbness in both lower extremity for more than 15 years had MRI done on 12/23 which shows severe lumbar disc degeneration. Related Data Home Medications Medication Instructions Recorded Confirmed No Known Home Meds 11/10/20 01/20/21 Allergies Allergy/AdvReac Type Severity Reaction Status Date / Time No Known Allergies Allergy Verified 02/04/21 09:59 Review of Systems Review of Systems: Yes all other systems are reviewed and are negative PMFSH Past Medical History Medical History Agoraphobia Physical exam PTSD (post-traumatic stress disorder) Surgical History No pertinent past surgical history Family History Family History Father Unknown family medical history Mother Unknown family medical history Social History Social History Household Members: None Housing: House Do you presently have visiting nurse or other home services: No Unable to assess alcohol history related to: Unknown Alcohol intake: never Patient Tobacco Use Status: Current everyday Tobacco user Tobacco use type: Cigarette Cigarette Packs Per Day: 1 Cigarettes Per Day: 20.0 Years Smoked: 15+ Second Hand Smoke Exposure: Yes Advance Directives: No Advance Directives Information Provided: Yes service: No Sexual orientation: Straight/Heterosexual Physical Exam Vital Signs: Vital Signs: Last Vital Signs Temp 97.7 F 03/14/21 20:56 Pulse 58 03/14/21 20:56 Resp 14 03/14/21 20:56 BP 169/98 H 03/14/21 20:56 Pulse Ox 100 03/14/21 20:56 BMI result Body Mass Index 21.1 Appearance: Alert. Oriented X3. No acute distress. Anxious Eyes: PERRLA, No Nystagmus no pallor or icterus HEENT: Pharynx normal. Oral Mucosa moist no facial asymmetry Neck: Normal inspection. Neck supple. CVS: Normal heart rate and rhythm. Pulses normal. Respiratory: No respiratory distress. Equal air entry bilateral, no wheezing/rales/rhonchi Abdomen: Soft and nontender. Bowel sounds are present, no mass palpable, no CVA tenderness Skin: Skin warm and dry. Normal skin color. Normal skin turgor. Extremities: No lower extremity edema. No calf tenderness Neuro: Oriented X 3. No motor deficit. Decreased sensation to all light touch and pinprick in lower extremity as in the past, No cerebellar signs , cranial nerves II-XII intact steady gait NIH Stroke Scale Internal: Initial- Upon Arrival Level of Consciousness: Alert Level of Consciousness Questions: Answers both questions correctly Level of Consciousness Commands: Performs both tasks correctly Best Gaze: Normal Visual: No visual loss Facial Palsy: Normal Motor Arm (Right): No drift Motor Arm (Left): No drift Motor Leg (Right): No drift Motor Leg (Left): No drift Limb Ataxia: Absent Sensory: Normal Best Language: No aphasia Dysarthia: Normal Extinction and Inattention: No abnormality Score: 0 Medical Decision Making MDM Narrative Medical decision making narrative: Patient has no objective focal deficits suggestive of CVA CT scan of the head and C-spine negative for any acute ischemia or vertebral issues went told him to follow-up as outpatient patient started crying saying that he is depressed very anxious want to kill himself. Will consult crisis Lab Data Lab results reviewed: Yes I reviewed the patient's lab results. Result diagrams: 03/14/21 21:56 03/14/21 21:56 Labs: Lab Results 03/14/21 03/14/21 03/14/21 Range/Units 21:56 21:56 21:56 WBC 5.7 (4.8-10.8) X10*3/uL RBC 4.41 L (4.60-5.80) X10*6/uL Hgb 13.9 L (14.0-18.0) g/dl Hct 41.8 L (42.0-52.0) % MCV 94.8 (80.0-98.0) fL MCH 31.5 (27.0-33.0) pg MCHC 33.3 (31.0-36.0) g/dl RDW 12.5 (11.0-16.0) % Plt Count 237 (160-400) X10*3/uL MPV 9.1 L (9.4-12.4) fL Immature Gran % (Auto) 0.2 (0.0-0.4) % Neut % (Auto) 52.0 (45-73) % Lymph % (Auto) 37.5 (20-40) % [place] % (Auto) 8.7 (2-11) % Eos % (Auto) 0.9 (0-4) % Baso % (Auto) 0.7 (0-2) % Lymph # (Auto) 2.1 (1.2-4.9) X10*3/uL [place] # (Auto) 0.5 (0.1-1.2) X10*3/uL Eos # (Auto) 0.1 (0.0-0.4) X10*3/uL Baso # (Auto) 0.0 (0.0-0.2) X10*3/uL Abs Immat Gran (auto) 0.01 (0.00-0.03) X10*3/uL Absolute Neuts (auto) 2.9 (2.0-8.3) x10*3/uL Absolute Nucleated RBC 0.000 (0.0-0.012) X10*3/uL Nucleated RBC % (auto) 0.0 (0.0-0.2) /100WBC Sodium 143 (135-145) mmol/L Potassium 3.8 (3.3-5.1) mmol/L Chloride 107 (96-108) mmol/L Carbon Dioxide 28 (22-29) mmol/L Anion Gap 12 (12-20) BUN 21 H (9-16) mg/dL Creatinine 0.90 (0.5-1.4) mg/dL Estim Creat Clear Calc 74.6 Estimated GFR > 60 Random Glucose 87 (60-115) mg/dL Calcium 9.3 (8.4-10.2) mg/dL Magnesium 2.2 (1.6-2.6) mg/dL Total Bilirubin 0.8 (0.0-1.0) mg/dL AST 13 (5-37) U/L ALT 13 (0-40) U/L Alkaline Phosphatase 52 (39-117) U/L Total Protein 6.5 (6.5-8.0) g/dL Albumin 4.2 (3.5-5.0) g/dL Urine Opiates Screen (Not Detect) Urine Fentanyl Screen (Not Detect) Ur Barbiturates Screen (Not Detect) Ur Phencyclidine Scrn (Not Detect) Ur Amphetamines Screen (Not Detect) U Benzodiazepines Scrn (Not Detect) Urine Cocaine Screen (Not Detect) U Marijuana (THC) Screen (Not Detect) COVID-19 ([facility]) Negative (Negative) COVID-19 Clin Com See Note 03/14/21 Range/Units 22:16 WBC (4.8-10.8) X10*3/uL RBC (4.60-5.80) X10*6/uL Hgb (14.0-18.0) g/dl Hct (42.0-52.0) % MCV (80.0-98.0) fL MCH (27.0-33.0) pg MCHC (31.0-36.0) g/dl RDW (11.0-16.0) % Plt Count (160-400) X10*3/uL MPV (9.4-12.4) fL Immature Gran % (Auto) (0.0-0.4) % Neut % (Auto) (45-73) % Lymph % (Auto) (20-40) % [place] % (Auto) (2-11) % Eos % (Auto) (0-4) % Baso % (Auto) (0-2) % Lymph # (Auto) (1.2-4.9) X10*3/uL [place] # (Auto) (0.1-1.2) X10*3/uL Eos # (Auto) (0.0-0.4) X10*3/uL Baso # (Auto) (0.0-0.2) X10*3/uL Abs Immat Gran (auto) (0.00-0.03) X10*3/uL Absolute Neuts (auto) (2.0-8.3) x10*3/uL Absolute Nucleated RBC (0.0-0.012) X10*3/uL Nucleated RBC % (auto) (0.0-0.2) /100WBC Sodium (135-145) mmol/L Potassium (3.3-5.1) mmol/L Chloride (96-108) mmol/L Carbon Dioxide (22-29) mmol/L Anion Gap (12-20) BUN (9-16) mg/dL Creatinine (0.5-1.4) mg/dL Estim Creat Clear Calc Estimated GFR Random Glucose (60-115) mg/dL Calcium (8.4-10.2) mg/dL Magnesium (1.6-2.6) mg/dL Total Bilirubin (0.0-1.0) mg/dL AST (5-37) U/L ALT (0-40) U/L Alkaline Phosphatase (39-117) U/L Total Protein (6.5-8.0) g/dL Albumin (3.5-5.0) g/dL Urine Opiates Screen Not Detected (Not Detect) Urine Fentanyl Screen Not Detected (Not Detect) Ur Barbiturates Screen Not Detected (Not Detect) Ur Phencyclidine Scrn Not Detected (Not Detect) Ur Amphetamines Screen Not Detected (Not Detect) U Benzodiazepines Scrn Not Detected (Not Detect) Urine Cocaine Screen Not Detected (Not Detect) U Marijuana (THC) Screen Not Detected (Not Detect) COVID-19 ([facility]) (Negative) COVID-19 Clin Com Discharge Plan Discharge Clinical Impression: PTSD (post-traumatic stress disorder), Major depression, chronic, Suicidal ideation Prescriptions: No Action No Known Home Meds RF: 0
[2021-03-14 22:01] LABS: MANUAL DIFF FLAG NO
[2021-03-14 22:03] LABS: Basophils Percent Auto 0.7 % (0-2); Eosinophils Absolute Auto 0.1 X10*3/uL (0.0-0.4); Eosinophils Percent Auto 0.9 % (0-4); Hematocrit 41.8 % (42.0-52.0); Hemoglobin 13.9 g/dl (14.0-18.0); Imm Gran Abs Auto 0.01 X10*3/uL (0.00-0.03); Imm Gran Pct Auto 0.2 % (0.0-0.4); Lymphocytes Absolute Auto 2.1 X10*3/uL (1.2-4.9); Lymphocytes Percent Auto 37.5 % (20-40); Mean Corpuscular HGB Conc 33.3 g/dl (31.0-36.0); Mean Corpuscular Hemoglobin 31.5 pg (27.0-33.0); Mean Corpuscular Volume 94.8 fL (80.0-98.0); Mean Platelet Volume 9.1 fL (9.4-12.4); Monocytes Absolute Auto 0.5 X10*3/uL (0.1-1.2); Monocytes Percent Auto 8.7 % (2-11); Neutrophils Absolute Auto 2.9 x10*3/uL (2.0-8.3); Platelet Count 237 X10*3/uL (160-400); Red Blood Count 4.41 X10*6/uL (4.60-5.80); Red Cell Distribution Width 12.5 % (11.0-16.0); White Blood Count 5.7 X10*3/uL (4.8-10.8)
[2021-03-14 22:17] LABS: Alanine Aminotransferase 13 U/L (0-40); Albumin Level 4.2 g/dL (3.5-5.0); Alkaline Phosphatase 52 U/L (39-117); Anion Gap 12 (12-20); Aspartate Amino Transferase 13 U/L (5-37); Bilirubin Total 0.8 mg/dL (0.0-1.0); Blood Urea Nitrogen 21 mg/dL (9-16); Calcium 9.3 mg/dL (8.4-10.2); Carbon Dioxide 28 mmol/L (22-29); Chloride 107 mmol/L (96-108); Creatinine Clr Calc Pharmacy 74.6; Estimated Glomerular Filt Rate > 60; Glucose Random 87 mg/dL (60-115); Magnesium 2.2 mg/dL (1.6-2.6); Potassium 3.8 mmol/L (3.3-5.1); Sodium 143 mmol/L (135-145); Total Protein 6.5 g/dL (6.5-8.0)
[2021-03-14 22:20] LABS: COVID-19 Test Negative (Negative)
[2021-03-14 22:36] LABS: Amphetamine Screen Urine Not Detected (Not Detect); Barbiturates, Urine Not Detected (Not Detect); Benzodiazepines Screen Urine Not Detected (Not Detect); Cannabinoid Screen Urine Not Detected (Not Detect); Cocaine Screen Urine Not Detected (Not Detect); Fentanyl, urine Not Detected (Not Detect); Opiate Screen Urine Not Detected (Not Detect); Phencyclidine Screen Urine Not Detected (Not Detect)
--- NOTE | 2021-03-15 | ECG_ITS ---
Test Reason : med clearance Blood Pressure : / mmHG Vent. Rate : 068 BPM Atrial Rate : 068 BPM P-R Int : 144 ms QRS Dur : 096 ms QT Int : 428 ms P-R-T Axes : 068 003 -26 degrees QTc Int : 455 ms Normal sinus rhythm with PAC's Cannot exclude Inferior infarct (cited on or before 24-SEP-2020) Abnormal ECG When compared with ECG of 26-OCT-2020 11:00, No significant change was found Referred By: Audra Winslow Electronically Signed By:NOEMI TEMPLETON
--- NOTE | 2021-03-15 05:56 | PC.NURSE ---
Patient slept through the night, no distress observed/reported, patient is currently not on any medication, MARIANAN assessed the patient, disposition section 12 inpatient bed search, alert and oriented x 4, coherent thought process, VSS, will continue to monitor.
[2021-03-15 07:35] VITALS: BP 124/85; PULSE 72; RESP 13; TEMP 36.5; O2SAT 98
--- NOTE | 2021-03-15 10:30 | PHA.MEDREC ---
Pharmacy Consult ? Medication Reconciliation Pharmacy has completed the medication reconciliation. Patient reports no medication at home. Sarah Cody, SyedaD
[2021-03-15 16:50] VITALS: BP 120/76; PULSE 64; TEMP 36.7; O2SAT 99
[2021-03-15] MEDS: Acetaminophen 325 MG TABLET 650 MG PO (21:06)
[2021-03-15] MEDS: traZODone HCL 50 MG TABLET PO (21:07)
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
[2021-03-16 06:00] VITALS: BP 123/78; PULSE 60; RESP 16; TEMP 36.4; O2SAT 97
[2021-03-16 18:40] VITALS: BP 120/69; PULSE 85; RESP 18; TEMP 36.2; O2SAT 98
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
[2021-03-16] MEDS: traZODone HCL 25 MG HALFTAB 75 MG PO (20:31)
[2021-03-16] MEDS: Gabapentin 100 MG CAPSULE PO (20:31)
[2021-03-16] MEDS: Acetaminophen 325 MG TABLET 650 MG PO (20:36)
[2021-03-16] MEDS: traZODone HCL 50 MG TABLET PO (23:00)
[2021-03-17 06:00] VITALS: BP 118/71; PULSE 62; RESP 14; TEMP 36.6; O2SAT 95
--- NOTE | 2021-03-17 10:14 | HO.PSYCHPN ---
Subjective Subjective Date of Service: 03/17/21 Reason For Visit: Stroke? Interim History: Patient reports that pain is perhaps little bit better with gabapentin but not fully sure. He still is anxious and depressed but no SI. Patient has a lot of anxiety about starting antidepressant medication however agrees that his symptoms are debilitating and he shares about his agoraphobia and however is afraid to leave his house. [employer] and patient reviewed risks/side effects of medication options and patient, who understood and asked numerous questions, decided on a trial of Prozac feeling that the potential benefit outweighed the risks. Patient reports waking up feeling some malaise; repeat COVID test ordered Mental Status Exam Mental Status Exam Narrative: Pt is alert and oriented; behavior is cooperative, friendly and calm; patient is not in distress; dressed in hospital gown with long hair, unkempt; mood is described as anxious and affect congruent; eye contact appropriate; Speech is verbose but normal rate, volume and prosody and not pressured; no psychomotor agitation/retardation present; thought process is organized, linear, logical and goal directed. Thought content is on medications and dealing with current life struggles; otherwise TC relevant to pertinent topics and without any delusional content, paranoid ideations or grandiosity; denies any SI/HI. There is no evidence of perceptual disturbance. ?Patients insight and judgment appear intact. Diagnostics Vital Signs (24Hr): Vital Signs - 24 hr 03/16/21 18:40 03/17/21 06:00 Temperature 97.2 F 97.8 F Pulse Rate 85 62 Respiratory Rate 18 14 Blood Pressure 120/69 118/71 Pulse Oximetry 98 95 BMI result Body Mass Index 21.1 Labs Results: 03/14/21 21:56 03/14/21 21:56 Imaging Radiology Impressions: ITS Impressions Head CT 03/14/21 14:15 IMPRESSION: No acute intracranial process seen. Mild straightening of cervical lordosis likely cyst from spasm. Degenerative disc changes with spondylosis C5-C6 and C6-C7 disc levels. There is bilateral narrowing of neural foramina from uncovertebral hypertrophic changes. Cervical Spine CT 03/14/21 14:16 IMPRESSION: No acute intracranial process seen. Mild straightening of cervical lordosis likely cyst from spasm. Degenerative disc changes with spondylosis C5-C6 and C6-C7 disc levels. There is bilateral narrowing of neural foramina from uncovertebral hypertrophic changes. Medications Medications Current Medications Acetaminophen (Acetaminophen 325 Mg Tablet) 650 mg PO Q6H PRN PRN Reason: Headache/Pain Mild Scale (1-3) Last Admin: 03/16/21 20:36 Dose: 650 mg Documented by: Al Hydroxide/Mg Hydroxide (Magnesium Hydrox/Alum Hydrox 30 Ml Oral.Susp) 30 ml PO Q6H PRN PRN Reason: Heartburn/Nausea Gabapentin (Gabapentin 100 Mg Capsule) 100 mg PO TID PRN PRN Reason: neuropathic pain Last Admin: 03/16/21 20:31 Dose: 100 mg Documented by: Magnesium Hydroxide (Milk Of Magnesia 30 Ml Oral.Susp) 30 ml PO DAILY PRN PRN Reason: Constipation Nicotine (Nicotine 21 Mg Patch.Td24) 21 mg TRANSDERMA DAILY [facility] Last Admin: 03/17/21 08:54 Dose: Not Given Documented by: Nicotine Polacrilex (Nicotine Polacrilex 2 Mg Gum) 2 mg BUCCAL Q1H PRN PRN Reason: nicotine craving Trazodone HCl (Trazodone Hcl 50 Mg Tablet) 50 mg PO BEDTIME PRN PRN Reason: continued insomnia Last Admin: 03/16/21 23:00 Dose: 50 mg Documented by: Trazodone HCl (Trazodone Hcl 25 Mg Halftab) 75 mg PO BEDTIME [facility] Last Admin: 03/16/21 20:31 Dose: 75 mg Documented by: Allergies Allergies Allergy/AdvReac Type Severity Reaction Status Date / Time No Known Allergies Allergy Verified 02/04/21 09:59 Assessment & Plan Assessment & Plan (1) PTSD (post-traumatic stress disorder): Status: Chronic Code(s): F43.10 - Post-traumatic stress disorder, unspecified (2) Major depression, chronic: Status: Acute Code(s): F32.9 - Major depressive disorder, single episode, unspecified (3) Neuropathy: Status: Acute Code(s): G62.9 - Polyneuropathy, unspecified Assessment and Plan: on 03/14/[address] negative for CVA; 12/2020 MRI indicates sever lumbar disc degeneration and cervical spine narrowing Assessment and Plan: IMPRESSION: Pt is a 60 yo male w/ hx of depression, ptsd, spinal stenosis and neuropathy who presents for depressed mood with passive SI. Pt reports that he has been trying to cope with his depression and anxiety since his last admission, but his physical struggles with neuropathy have made this increasingly difficult. Compounding this issue are other pending psychosocial struggles such as dwindling funds and lack of any social support. This past week he developed additional neuropathic symptoms with loss of sensation in left side of body (on 03/14/[address] negative for CVA; 12/23 MRI indicates sever lumbar disc degeneration and cervical spine narrowing) which worsened his depression and triggered increase in suicidal thinking. -patient has passive wish however denies active SI and says he does not think he will however actually kill himself -patient has never tried antidepressant in his life time; he has also never been in therapy until year ago. Patient has become more accepting that he needs additional help to deal with his symptoms which are debilitating -patient agreed to trial of Prozac 10 mg daily; risks/side effects thoroughly reviewed and patient understands and agrees to trial. PLAN: CV q15 min checks Prozac 10mg daily for ptsd/depression trazodone 75mg qhs with 50mg prn gabapentin 100mg tid prn for neuropathic pain will consider SSRI Will consider flomax; c/o urinary frequency for months, however reports strong flow; R/o BPH; also reports intermittent dark urine; r/o [place]; pt reports hx of kidneys stones and renal cysts I spent minutes with the patient and/or on the patient floor today, greater than?50% of which was spent counseling/coordinating care. Reason for contiued inpatient stay Substantial Risk for: med/psych decompensation
[2021-03-17] MEDS: FLUoxetine HCl 10 MG CAPSULE PO (13:23)
[2021-03-17 13:49] LABS: COVID-19 Test Negative (Negative); IDNOW Serial# 55D5AD1C
[2021-03-17 14:39] LABS: Influenza A PCR NEGATIVE (Negative); Influenza B PCR NEGATIVE (Negative); Resp Syncy Virus RNA Qual PCR NEGATIVE (Negative); SARS COV2 PCR INHOUSE NEGATIVE (Negative)
[2021-03-17 18:00] VITALS: BP 140/84; PULSE 77
[2021-03-17] MEDS: Gabapentin 100 MG CAPSULE PO (21:04)
[2021-03-17] MEDS: traZODone HCL 25 MG HALFTAB 75 MG PO (21:04)
[2021-03-17] MEDS: Acetaminophen 325 MG TABLET 650 MG PO (21:04)
[2021-03-17] MEDS: traZODone HCL 50 MG TABLET PO (22:55)
[2021-03-18 06:00] VITALS: BP 122/86; PULSE 72; RESP 18; TEMP 36.1; O2SAT 97
[2021-03-18] MEDS: FLUoxetine HCl 10 MG CAPSULE PO (08:29)
--- NOTE | 2021-03-18 10:17 | P.PNPSI_ITS ---
Subjective Subjective Date of Service: 03/18/21 Reason For Visit: Stroke? Interim History: Patient said that he felt a little nauseous yesterday and today after taking medication however it is tolerable. He wonders if it interferes some with sleep last night but he also said that his roommate is up pretty late which he thinks is most likely the issue. He agrees to increasing trazodone tonight. Patient shared about anxieties he continues to have regarding dealing with finances, his house and future. He also shared about struggles connecting with people and developing friendships. Patient was forthcoming and talked about how he feels there are gaps in his development which have left him feeling more comfortable with younger people in their 20s. Patient is understanding that the Prozac may be helpful at in that if it lowers anxiety may find it easier to her interact. No SI, no HI, no AVH. Of note patient has showered and shaved and has been enjoying group activity. Mental Status Exam Mental Status Exam Narrative: ?Pt is alert and oriented; behavior is cooperative, friendly and calm; patient is not in distress; dressed in hospital gown with long hair, cleaned, shaven; mood is described as anxious and affect congruent but less so, more calm; eye contact appropriate; Speech can be verbose but normal rate, volume and prosody and not pressured; no psychomotor agitation/retardation present; thought process is organized, linear, logical and goal directed, though can also be circumstantial. Thought content is on dealing with current life struggles; otherwise TC relevant to pertinent topics and without any delusional content, paranoid ideations or grandiosity; denies any SI/HI. There is no evidence of perceptual disturbance. ?Patients insight and judgment appear intact. Diagnostics Vital Signs (24Hr): Vital Signs - 24 hr 03/17/21 18:00 03/18/21 06:00 Temperature 97 F Pulse Rate 77 72 Respiratory Rate 18 Blood Pressure 140/84 H 122/86 Pulse Oximetry 97 BMI result Body Mass Index 21.1 Labs Results: 03/14/21 21:56 03/14/21 21:56 Labs: Laboratory Results - last 48 hr 03/17/21 03/17/21 13:15 13:15 COVID-19 ([facility]) Negative COVID-19 Clin Com See Note Influenza Type A (PCR) NEGATIVE Influenza Type B (PCR) NEGATIVE RSV RNA Qual (PCR) NEGATIVE SARS-CoV-2 RNA (RT-PCR) NEGATIVE Imaging Radiology Impressions: ITS Impressions Head CT 03/14/21 14:15 IMPRESSION: No acute intracranial process seen. Mild straightening of cervical lordosis likely cyst from spasm. Degenerative disc changes with spondylosis C5-C6 and C6-C7 disc levels. There is bilateral narrowing of neural foramina from uncovertebral hypertrophic changes. Cervical Spine CT 03/14/21 14:16 IMPRESSION: No acute intracranial process seen. Mild straightening of cervical lordosis likely cyst from spasm. Degenerative disc changes with spondylosis C5-C6 and C6-C7 disc levels. There is bilateral narrowing of neural foramina from uncovertebral hypertrophic changes. Medications Medications Current Medications Acetaminophen (Acetaminophen 325 Mg Tablet) 650 mg PO Q6H PRN PRN Reason: Headache/Pain Mild Scale (1-3) Last Admin: 03/17/21 21:04 Dose: 650 mg Documented by: Al Hydroxide/Mg Hydroxide (Magnesium Hydrox/Alum Hydrox 30 Ml Oral.Susp) 30 ml PO Q6H PRN PRN Reason: Heartburn/Nausea Fluoxetine HCl (Fluoxetine Hcl 10 Mg Capsule) 10 mg PO DAILY [facility] Last Admin: 03/18/21 08:29 Dose: 10 mg Documented by: Gabapentin (Gabapentin 100 Mg Capsule) 100 mg PO TID PRN PRN Reason: neuropathic pain Last Admin: 03/17/21 21:04 Dose: 100 mg Documented by: Magnesium Hydroxide (Milk Of Magnesia 30 Ml Oral.Susp) 30 ml PO DAILY PRN PRN Reason: Constipation Nicotine Polacrilex (Nicotine Polacrilex 2 Mg Gum) 2 mg BUCCAL Q1H PRN PRN Reason: nicotine craving Trazodone HCl (Trazodone Hcl 50 Mg Tablet) 50 mg PO BEDTIME PRN PRN Reason: continued insomnia Last Admin: 03/17/21 22:55 Dose: 50 mg Documented by: Trazodone HCl (Trazodone Hcl 25 Mg Halftab) 75 mg PO BEDTIME [facility] Last Admin: 03/17/21 21:04 Dose: 75 mg Documented by: Allergies Allergies Allergy/AdvReac Type Severity Reaction Status Date / Time No Known Allergies Allergy Verified 02/04/21 09:59 Assessment & Plan Assessment & Plan (1) PTSD (post-traumatic stress disorder): Status: Chronic Code(s): F43.10 - Post-traumatic stress disorder, unspecified (2) Major depression, chronic: Status: Acute Code(s): F32.9 - Major depressive disorder, single episode, unspecified (3) Neuropathy: Status: Acute Code(s): G62.9 - Polyneuropathy, unspecified Assessment and Plan: on 03/14/[address] negative for CVA; 12/2020 MRI indicates sever lumbar disc degeneration and cervical spine narrowing Assessment and Plan: IMPRESSION: Pt is a 60 yo male w/ hx of depression, ptsd, spinal stenosis and neuropathy who presents for depressed mood with passive SI. Pt reports that he has been trying to cope with his depression and anxiety since his last admission, but his physical struggles with neuropathy have made this increasingly difficult. Comp ounding this issue are other pending psychosocial struggles such as dwindling funds and lack of any social support. This past week he developed additional neuropathic symptoms with loss of sensation in left side of body (on 03/14/[address] negative for CVA; 12/23 MRI indicates sever lumbar disc degeneration and cervical spine narrowing) which worsened his depression and triggered increase in suicidal thinking. -patient has passive wish however denies active SI and says he does not think he will however actually kill himself -patient has never tried antidepressant in his life time; he has also never been in therapy until year ago. Patient has become more accepting that he needs additional help to deal with his symptoms which are debilitating -patient agreed to trial of Prozac 10 mg daily; risks/side effects thoroughly reviewed and patient understands and agrees to trial. -mild nausea from Prozac however patient feels it is tolerable and will continue. Still anxious but does present as more calm and has been interacting with peers, enjoying group activities. No SI PLAN: CV q15 min checks Prozac 10mg daily for ptsd/depression Increasing to trazodone 100 mg qhs with 50mg prn gabapentin 100mg tid prn for neuropathic pain Will consider flomax; c/o urinary frequency for months, however reports strong flow; R/o BPH; also reports intermittent dark urine; r/o [place]; pt reports hx of kidneys stones and renal cysts I spent minutes with the patient and/or on the patient floor today, greater than?50% of which was spent counseling/coordinating care. Reason for contiued inpatient stay Substantial Risk for: stable for discharge
[2021-03-18 18:00] VITALS: BP 115/70; PULSE 73; RESP 18; TEMP 36.6; O2SAT 98
[2021-03-18] MEDS: traZODone HCL 100 MG TABLET PO (22:19)
[2021-03-18] MEDS: Acetaminophen 325 MG TABLET 650 MG PO (22:21)
[2021-03-18] MEDS: Gabapentin 100 MG CAPSULE PO (22:21)
[2021-03-19 06:00] VITALS: BP 129/77; PULSE 70; RESP 18; TEMP 36.8; O2SAT 97
[2021-03-19] MEDS: FLUoxetine HCl 10 MG CAPSULE PO (08:44)
--- NOTE | 2021-03-19 16:16 | P.PNPSI_ITS ---
Subjective Subjective Date of Service: 03/19/21 Reason For Visit: Stroke? Interim History: Patient reports that he had a tough evening yesterday. He said that his food order was incorrect 3 times in a row and that it just triggered some depressed feelings. Patient said he was tearful last night but that has resolved. He denies any SI. He still has trouble sleeping and agrees to incre asing trazodone as well as starting prazosin since he reports nightmares nearly every night, though none the past few. Patient continues to take Prozac; no side effects complaints. Patient appropriate with peers and staff and interactive in the milieu. Patient shared her recurring nightmare that he has about his parents coming back in asking for all the money in the house back. Mental Status Exam Mental Status Exam Narrative: ?Pt is alert and oriented; behavior is cooperative, friendly and kristen m; patient is not in distress; dressed in hospital gown with long hair, cleaned, shaven; mood is described as down today and affect congruent but still more calm; eye contact appropriate; Speech can be verbose but normal rate, volume and prosody and not pressured; no psychomotor agitation/retardation present; thought process is organized, linear, logical and goal directed, though can also be cir cumstantial. Thought content is on dealing with current life struggles; otherwise TC relevant to pertinent topics and without any delusional content, paranoid ideations or grandiosity; denies any SI/HI. There is no evidence of perceptual disturbance. ?Patients insight and judgment appear intact. Diagnostics Vital Signs (24Hr): Vital Signs - 24 hr 03/18/21 18:00 03/19/21 06:00 Temperature 97.8 F 98.2 F Pulse Rate 73 70 Respiratory Rate 18 18 Blood Pressure 115/70 129/77 Pulse Oximetry 98 97 BMI result Body Mass Index 21.1 Labs Results: 03/14/21 21:56 03/14/21 21:56 Imaging Radiology Impressions: ITS Impressions Head CT 03/14/21 14:15 IMPRESSION: No acute intracranial process seen. Mild straightening of cervical lordosis likely cyst from spasm. Degenerative disc changes with spondylosis C5-C6 and C6-C7 disc levels. There is bilateral narrowing of neural foramina from uncovertebral hypertrophic changes. Cervical Spine CT 03/14/21 14:16 IMPRESSION: No acute intracranial process seen. Mild straightening of cervical lordosis likely cyst from spasm. Degenerative disc changes with spondylosis C5-C6 and C6-C7 disc levels. There is bilateral narrowing of neural foramina from uncovertebral hypertrophic changes. Medications Medications Current Medications Acetaminophen (Acetaminophen 325 Mg Tablet) 650 mg PO Q6H PRN PRN Reason: Headache/Pain Mild Scale (1-3) Last Admin: 03/18/21 22:21 Dose: 650 mg Documented by: Al Hydroxide/Mg Hydroxide (Magnesium Hydrox/Alum Hydrox 30 Ml Oral.Susp) 30 ml PO Q6H PRN PRN Reason: Heartburn/Nausea Fluoxetine HCl (Fluoxetine Hcl 10 Mg Capsule) 10 mg PO DAILY [facility] Last Admin: 03/19/21 08:44 Dose: 10 mg Documented by: Gabapentin (Gabapentin 100 Mg Capsule) 100 mg PO TID PRN PRN Reason: neuropathic pain Last Admin: 03/18/21 22:21 Dose: 100 mg Documented by: Magnesium Hydroxide (Milk Of Magnesia 30 Ml Oral.Susp) 30 ml PO DAILY PRN PRN Reason: Constipation Nicotine Polacrilex (Nicotine Polacrilex 2 Mg Gum) 2 mg BUCCAL Q1H PRN PRN Reason: nicotine craving Prazosin HCl (Prazosin Hcl 1 Mg Capsule) 1 mg PO BEDTIME [facility]; Protocol Trazodone HCl (Trazodone Hcl 50 Mg Tablet) 50 mg PO BEDTIME PRN PRN Reason: continued insomnia Last Admin: 03/17/21 22:55 Dose: 50 mg Documented by: Trazodone HCl (Trazodone Hcl 50 Mg Tablet) 125 mg PO BEDTIME [facility] Allergies Allergies Allergy/AdvReac Type Severity Reaction Status Date / Time No Known Allergies Allergy Verified 02/04/21 09:59 Assessment & Plan Assessment & Plan (1) PTSD (post-traumatic stress disorder): Status: Chronic Code(s): F43.10 - Post-traumatic stress disorder, unspecified (2) Major depression, chronic: Status: Acute Code(s): F32.9 - Major depressive disorder, single episode, unspecified (3) Neuropathy: Status: Acute Code(s): G62.9 - Polyneuropathy, unspecified Assessment and Plan: on 03/14/[address] negative for CVA; 12/2020 MRI indicates sever lumbar disc degeneration and cervical spine narrowing Assessment and Plan: IMPRESSION: Pt is a 60 yo male w/ hx of depression, ptsd, spinal stenosis and neuropathy who presents for depressed mood with passive SI. Pt reports that he has been trying to cope with his depression and anxiety since his last admission, but his physical struggles with neuropathy have made this increasingly difficult. Compounding this issue are other pending psychosocial struggles such as dwindling funds and lack of any social support. This past week he developed additional neuropathic symptoms with loss of sensation in left side of body (on 03/14/[address] negative for CVA; 12/23 MRI indicates sever lumbar disc degeneration and cervical spine narrowing) which worsened his depression and triggered increase in suicidal thinking. -patient has passive wish however denies active SI and says he does not think he will however actually kill himself -patient has never tried antidepressant in his life time; he has also never been in therapy until year ago. Patient has become more accepting that he needs additional help to deal with his symptoms which are debilitating -patient agreed to trial of Prozac 10 mg daily; risks/side effects thoroughly reviewed and patient understands and agrees to trial. -mild nausea from Prozac however patient feels it is tolerable and will continue. Still anxious but does present as more calm and has been interacting with peers, enjoying group activities. No SI -a little down but stable and no SI. Tolerating Prozac PLAN: CV q15 min checks Prozac 10mg daily for ptsd/depression START Prazosin 1mg qhs for ptsd associated sleep disturbance Increasing to trazodone 125 mg qhs with 50mg prn gabapentin 100mg tid prn for neuropathic pain c/o urinary frequency for months, however reports strong flow, and denies any dribbling or difficulty urinating; no dysuria; hx of dark urine but now reported as fully resolved; r/o [place]; pt reports hx of kidneys stones and renal cysts I spent minutes with the patient and/or on the patient floor today, greater than?50% of which was spent counseling/coordinating care. Reason for contiued inpatient stay Substantial Risk for: stable for discharge
[2021-03-19 22:00] VITALS: BP 122/82; PULSE 81; TEMP 36.6; O2SAT 98
[2021-03-19] MEDS: Prazosin HCL 1 MG CAPSULE PO (22:21)
[2021-03-19] MEDS: traZODone HCL 50 MG TABLET 125 MG PO (22:21)
[2021-03-19] MEDS: Gabapentin 100 MG CAPSULE PO (22:22)
[2021-03-20 06:00] VITALS: BP 122/71; PULSE 72; RESP 18; TEMP 37; O2SAT 97
[2021-03-20] MEDS: FLUoxetine HCl 10 MG CAPSULE PO ×2 (08:53→14:47)
--- NOTE | 2021-03-20 13:44 | HO.PSYCHPN ---
Subjective Subjective Date of Service: 03/20/21 Reason For Visit: Stroke? 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 Gabapentin was stopped. Patient agrees to increasing acetaminophen to 1000 mg to see if that helps. Patient says he has been having trouble sleeping however through more discussion it became apparent that he is sleeping better here than he normally does at home with the trazodone and prazosin. Patient says that he does not notice much difference being on the Prozac, that anxiety is about the same. Patient says he still feels overall depressed but denies any SI. Patient agrees to increasing Prozac to 20 mg. Mental Status Exam Mental Status Exam Narrative: Pt is alert and oriented; behavior is cooperative, friendly and calm; patient is not in distress; dressed in hospital gown with long hair, cleaned, shaven; mood is described as ok and affect congruent but still more calm; eye contact appropriate; Speech can be verbose but normal rate, volume and prosody and not pressured; no psychomotor agitation/retardation present; thought process is organized, linear, logical and goal directed, though can also be circumstantial. Thought content is on dealing with current life struggles; otherwise TC relevant to pertinent topics and without any delusional content, paranoid ideations or grandiosity; denies any SI/HI. There is no evidence of perceptual disturbance. ?Patients insight and judgment appear intact. Diagnostics Vital Signs (24Hr): Vital Signs - 24 hr 03/19/21 22:00 03/20/21 06:00 Temperature 97.9 F 98.6 F Pulse Rate 81 72 Respiratory Rate 18 Blood Pressure 122/82 122/71 Pulse Oximetry 98 97 BMI result Body Mass Index 21.1 Labs Results: 03/14/21 21:56 03/14/21 21:56 Imaging Radiology Impressions: ITS Impressions Head CT 03/14/21 14:15 IMPRESSION: No acute intracranial process seen. Mild straightening of cervical lordosis likely cyst from spasm. Degenerative disc changes with spondylosis C5-C6 and C6-C7 disc levels. There is bilateral narrowing of neural foramina from uncovertebral hypertrophic changes. Cervical Spine CT 03/14/21 14:16 IMPRESSION: No acute intracranial process seen. Mild straightening of cervical lordosis likely cyst from spasm. Degenerative disc changes with spondylosis C5-C6 and C6-C7 disc levels. There is bilateral narrowing of neural foramina from uncovertebral hypertrophic changes. Medications Medications Current Medications Acetaminophen (Acetaminophen 325 Mg Tablet) 650 mg PO Q6H PRN PRN Reason: Headache/Pain Mild Scale (1-3) Last Admin: 03/18/21 22:21 Dose: 650 mg Documented by: Al Hydroxide/Mg Hydroxide (Magnesium Hydrox/Alum Hydrox 30 Ml Oral.Susp) 30 ml PO Q6H PRN PRN Reason: Heartburn/Nausea Fluoxetine HCl (Fluoxetine Hcl 10 Mg Capsule) 10 mg PO DAILY LASHELL Last Admin: 03/20/21 08:53 Dose: 10 mg Documented by: Gabapentin (Gabapentin 100 Mg Capsule) 100 mg PO TID PRN PRN Reason: neuropathic pain Last Admin: 03/19/21 22:22 Dose: 100 mg Documented by: Magnesium Hydroxide (Milk Of Magnesia 30 Ml Oral.Susp) 30 ml PO DAILY PRN PRN Reason: Constipation Nicotine Polacrilex (Nicotine Polacrilex 2 Mg Gum) 2 mg BUCCAL Q1H PRN PRN Reason: nicotine craving Prazosin HCl (Prazosin Hcl 1 Mg Capsule) 1 mg PO BEDTIME LASHELL; Protocol Last Admin: 03/19/21 22:21 Dose: 1 mg Documented by: Trazodone HCl (Trazodone Hcl 50 Mg Tablet) 50 mg PO BEDTIME PRN PRN Reason: continued insomnia Last Admin: 03/17/21 22:55 Dose: 50 mg Documented by: Trazodone HCl (Trazodone Hcl 50 Mg Tablet) 125 mg PO BEDTIME LASHELL Last Admin: 03/19/21 22:21 Dose: 125 mg Documented by: Allergies Allergies Allergy/AdvReac Type Severity Reaction Status Date / Time No Known Allergies Allergy Verified 02/04/21 09:59 Assessment & Plan Assessment & Plan (1) PTSD (post-traumatic stress disorder): Status: Chronic Code(s): F43.10 - Post-traumatic stress disorder, unspecified (2) Major depression, chronic: Status: Acute Code(s): F32.9 - Major depressive disorder, single episode, unspecified (3) Neuropathy: Status: Acute Code(s): G62.9 - Polyneuropathy, unspecified Assessment and Plan: on 03/14/[address] negative for CVA; 12/2020 MRI indicates sever lumbar disc degeneration and cervical spine narrowing Assessment and Plan: IMPRESSION: Pt is a 60 yo male w/ hx of depression, ptsd, spinal stenosis and neuropathy who presents for depressed mood with passive SI. Pt reports that he has been trying to cope with his depression and anxiety since his last admission, but his physical struggles with neuropathy have made this increasingly difficult. Compounding this issue are other pending psychosocial struggles such as dwindling funds and lack of any social support. This past week he developed additional neuropathic symptoms with loss of sensation in left side of body (on 03/14/[address] negative for CVA; 12/23 MRI indicates sever lumbar disc degeneration and cervical spine narrowing) which worsened his depression and triggered increase in suicidal thinking. -patient has passive wish however denies active SI and says he does not think he will however actually kill himself -patient has never tried antidepressant in his life time; he has also never been in therapy until year ago. Patient has become more accepting that he needs additional help to deal with his symptoms which are debilitating -patient agreed to trial of Prozac 10 mg daily; risks/side effects thoroughly reviewed and patient understands and agrees to trial. -mild nausea from Prozac however patient feels it is tolerable and will continue. Still anxious but does present as more calm and has been interacting with peers, enjoying group activities. No SI -a little down but stable and no SI. Tolerating Prozac PLAN: CV q15 min checks INCREASE to Prozac 20mg daily for ptsd/depression Prazosin 1mg qhs for ptsd associated sleep disturbance trazodone 125 mg qhs with 50mg prn DC gabapentin : caused b/l lower limb edema even at 100mg c/o urinary frequency for months, however reports strong flow, and denies any dribbling or difficulty urinating; no dysuria; hx of dark urine but now reported as fully resolved; r/o [place]; pt reports hx of kidneys stones and renal cysts I spent minutes with the patient and/or on the patient floor today, greater than?50% of which was spent counseling/coordinating care. Reason for contiued inpatient stay Substantial Risk for: stable for discharge
[2021-03-20 17:10] VITALS: BP 124/64; PULSE 81; TEMP 36.8; O2SAT 98
[2021-03-20] MEDS: Milk of Magnesia 30 ML ORAL.SUSP PO (19:41)
[2021-03-20 21:15] VITALS: BP 138/74; PULSE 100; RESP 16; TEMP 37.3; O2SAT 93
[2021-03-20] MEDS: Prazosin HCL 1 MG CAPSULE PO (22:09)
[2021-03-20] MEDS: traZODone HCL 50 MG TABLET 125 MG PO (22:12)
[2021-03-20 22:17] VITALS: BP 123/87; PULSE 88
[2021-03-21 06:00] VITALS: BP 121/70; PULSE 70; RESP 16; TEMP 36.6; O2SAT 97
[2021-03-21] MEDS: FLUoxetine HCl 20 MG CAPSULE PO (08:37)
--- NOTE | 2021-03-21 12:05 | P.PNPSI_ITS ---
Subjective Subjective Date of Service: 03/21/21 Reason For Visit: Stroke? Interim History: pt reports continued trouble sleeping but agrees it's still overall better than at home. He agrees to switch out prazosin for clonidine since he finds himself urinating a little more frequently since starting the prazosin. Patient reports he continues to have a passive wish, wishing he would just . However he denies any SI intent or plans and says he will not kill himself. Patient feels a little groggy in the morning and is not sure if it is due to medications or just being on the unit. He feels a little foggy and again is not sure if it is due to the Prozac. That said he wants to continue with it for now to see if it can be helpful. Overall he feels it has not made much change in his depression or anxiety. Patient understands that it may take more time to see if there is any benefit and can follow up with outpatient provider. Mental Status Exam Mental Status Exam Narrative: Pt is alert and oriented; behavior is cooperative, friendly and calm; patient is not in distress; dressed in hospital gown with long hair, cleaned, shaven; mood is described as ok and affect congruent; eye contact appropriate; Speech can be verbose but normal rate, volume and prosody and not pressured; no psychomotor agitation/retardation present; thought process is organized, linear, logical and goal directed, though can also be circumstantial. Thought content is on dealing with current life struggles; otherwise TC relevant to pertinent topics and without any delusional content, paranoid ideations or grandiosity; denies any SI/HI. There is no evidence of perceptual disturbance. ?Patients insight and judgment appear intact. Diagnostics Vital Signs (24Hr): Vital Signs - 24 hr 03/20/21 17:10 03/20/21 21:15 03/20/21 22:17 Temperature 98.3 F 99.2 F Pulse Rate 81 100 88 Respiratory Rate 16 Blood Pressure 124/64 138/74 123/87 Pulse Oximetry 98 93 03/21/21 06:00 Temperature 97.8 F Pulse Rate 70 Respiratory Rate 16 Blood Pressure 121/70 Pulse Oximetry 97 BMI result Body Mass Index 21.1 Labs Results: 03/14/21 21:56 03/14/21 21:56 Imaging Radiology Impressions: ITS Impressions Head CT 03/14/21 14:15 IMPRESSION: No acute intracranial process seen. Mild straightening of cervical lordosis likely cyst from spasm. Degenerative disc changes with spondylosis C5-C6 and C6-C7 disc levels. There is bilateral narrowing of neural foramina from uncovertebral hypertrophic changes. Cervical Spine CT 03/14/21 14:16 IMPRESSION: No acute intracranial process seen. Mild straightening of cervical lordosis likely cyst from spasm. Degenerative disc changes with spondylosis C5-C6 and C6-C7 disc levels. There is bilateral narrowing of neural foramina from uncovertebral hypertrophic changes. Medications Medications Current Medications Acetaminophen (Acetaminophen 325 Mg Tablet) 1,000 mg PO Q6H PRN PRN Reason: Headache/Pain Mild Scale (1-3) Al Hydroxide/Mg Hydroxide (Magnesium Hydrox/Alum Hydrox 30 Ml Oral.Susp) 30 ml PO Q6H PRN PRN Reason: Heartburn/Nausea Clonidine HCl (Clonidine Hcl 0.1 Mg Tablet) 0.1 mg PO BEDTIME LASHELL; Protocol Fluoxetine HCl (Fluoxetine Hcl 20 Mg Capsule) 20 mg PO DAILY LASHELL Last Admin: 03/21/21 08:37 Dose: 20 mg Documented by: Magnesium Hydroxide (Milk Of Magnesia 30 Ml Oral.Susp) 30 ml PO DAILY PRN PRN Reason: Constipation Last Admin: 03/20/21 19:41 Dose: 30 ml Documented by: Nicotine Polacrilex (Nicotine Polacrilex 2 Mg Gum) 2 mg BUCCAL Q1H PRN PRN Reason: nicotine craving Trazodone HCl (Trazodone Hcl 50 Mg Tablet) 50 mg PO BEDTIME PRN PRN Reason: continued insomnia Last Admin: 03/17/21 22:55 Dose: 50 mg Documented by: Trazodone HCl (Trazodone Hcl 50 Mg Tablet) 125 mg PO BEDTIME LASHELL Last Admin: 03/20/21 22:12 Dose: 125 mg Documented by: Allergies Allergies Allergy/AdvReac Type Severity Reaction Status Date / Time No Known Allergies Allergy Verified 02/04/21 09:59 Assessment & Plan Assessment & Plan (1) PTSD (post-traumatic stress disorder): Status: Chronic Code(s): F43.10 - Post-traumatic stress disorder, unspecified (2) Major depression, chronic: Status: Acute Code(s): F32.9 - Major depressive disorder, single episode, unspecified (3) Neuropathy: Status: Acute Code(s): G62.9 - Polyneuropathy, unspecified Assessment and Plan: on 03/14/[address] negative for CVA; 12/2020 MRI indicates sever lumbar disc degeneration and cervical spine narrowing Assessment and Plan: IMPRESSION: Pt is a 60 yo male w/ hx of depression, ptsd, spinal stenosis and neuropathy who presents for depressed mood with passive SI. Pt reports that he has been trying to cope with his depression and anxiety since his last admission, but his physical struggles with neuropathy have made this increasingly difficult. [place] unding this issue are other pending psychosocial struggles such as dwindling funds and lack of any social support. This past week he developed additional neuropathic symptoms with loss of sensation in left side of body (on 03/14/[address] negative for CVA; 12/23 MRI indicates sever lumbar disc degeneration and cervical spine narrowing) which worsened his depression and triggered increase in suicidal thinking. -patient has passive wish however denies active SI and says he does not think he will however actually kill himself -patient has never tried antidepressant in his life time; he has also never been in therapy until year ago. Patient has become more accepting that he needs additional help to deal with his symptoms which are debilitating -patient agreed to trial of Prozac 10 mg daily; risks/side effects thoroughly reviewed and patient understands and agrees to trial. -mild nausea from Prozac however patient feels it is tolerable and will continue. Still anxious but does present as more calm and has been interacting with peers, enjoying group activities. No SI -a little down but stable and no SI. Tolerating Prozac -continues to have passive wish and continues to feel depressed and anxious with little reported change despite Prozac. Patient however agrees that it might take more time to see if Prozac which is now on crease to 20 mg becomes effective and he would like to remain on it. Patient denies any active SI intent or plans and says will not actively hurt himself. PLAN: CV q15 min checks Prozac 20mg daily for ptsd/depression DC Prazosin 1mg qhs as may cause increased urination START clonidine 0.1 mg q.h.s. for nighttime anxiety trazodone 125 mg qhs with 50mg prn DC gabapentin : caused b/l lower limb edema even at 100mg c/o urinary frequency for months, however reports strong flow, and denies any dribbling or difficulty urinating; no dysuria; hx of dark urine but now reported as fully resolved; r/o [place]; pt reports hx of kidneys stones and renal cysts I spent minutes with the patient and/or on the patient floor today, greater than?50% of which was spent counseling/coordinating care. Reason for contiued inpatient stay Substantial Risk for: stable for discharge
[2021-03-21] MEDS: Magnesium Citrate 300 ML SOLUTION PO (13:21)
[2021-03-21 17:50] VITALS: BP 140/73; PULSE 76; RESP 16; TEMP 36.5; O2SAT 98
[2021-03-21] MEDS: cloNIDine HCL 0.1 MG TABLET PO (20:37)
[2021-03-21] MEDS: traZODone HCL 50 MG TABLET 125 MG PO (22:18)
[2021-03-22 05:44] VITALS: BP 138/81; PULSE 72; RESP 16; TEMP 36.6; O2SAT 97
[2021-03-22] MEDS: FLUoxetine HCl 20 MG CAPSULE PO (08:45)
--- NOTE | 2021-03-22 10:17 | P.PNPSI_ITS ---
Subjective Subjective Date of Service: 03/22/21 Reason For Visit: Stroke? Interim History: pt reports that he remains depressed and continues to have a passive wish and go to sleep . However he continues to deny any active SI, intent or plans and says he would not self-harm. He also will continue to try and manage his house-hold other responsibilities. He Reports anxiety since he has numerous psychosocial issues with which to deal; during his last admission, he was given resources (application for disability/deputy attorney general contact) however did not pursue them; pt says this time he will be more proactive. Patient does not think that Prozac has made a difference thus far. He also wonders if he is cognitively dulled since starting Prozac. Food Service Substitute offered to try a new med and add Mirtazapine, however pt does not want to try this tonight since discharge is planned for tomorrow. Food Service Substitute educated patient on med trials and how it is common to have medication trials at home in the outpatient world and that one does not need to be on an inpt unit to do so (and how his reaction to medication could be discussed tomorrow prior to discharge...), however patient declines. Reports anxiety since he has numerous psychosocial issues with which to deal; during his last admission, he was given resources (application for disability/deputy attorney general contact) however did not pursue them; pt says this time he will be more proactive. pt reports continued trouble sleeping, however his experience on unit remains with improved sleep than at baseline Mental Status Exam Mental Status Exam Narrative: Pt is alert and oriented; behavior is cooperative, friendly and calm; patient is not in distress; dressed in hospital gown with long hair and adequate hygiene; mood is described as anxious...down and affect congruent; eye contact appropriate; Speech is normal rate, volume and prosody and not pressured; no psychomotor agitation/retardation present; thought process is organized, linear, logical and goal directed, though can also be circumstantial. Thought content is on dealing with current life struggles; otherwise TC relevant to pertinent topics and without any delusional content, paranoid ideations or grandiosity; denies any SI/HI. There is no evidence of perceptual disturbance. ?Patients insight and judgment appear intact. Diagnostics Vital Signs (24Hr): Vital Signs - 24 hr 03/21/21 17:50 03/22/21 05:44 Temperature 97.7 F 97.8 F Pulse Rate 76 72 Respiratory Rate 16 16 Blood Pressure 140/73 H 138/81 Pulse Oximetry 98 97 BMI result Body Mass Index 21.1 Labs Results: 03/14/21 21:56 03/14/21 21:56 Imaging Radiology Impressions: ITS Impressions Head CT 03/14/21 14:15 IMPRESSION: No acute intracranial process seen. Mild straightening of cervical lordosis likely cyst from spasm. Degenerative disc changes with spondylosis C5-C6 and C6-C7 disc levels. There is bilateral narrowing of neural foramina from uncovertebral hypertrophic changes. Cervical Spine CT 03/14/21 14:16 IMPRESSION: No acute intracranial process seen. Mild straightening of cervical lordosis likely cyst from spasm. Degenerative disc changes with spondylosis C5-C6 and C6-C7 disc levels. There is bilateral narrowing of neural foramina from uncovertebral hypertrophic changes. Medications Medications Current Medications Acetaminophen (Acetaminophen 325 Mg Tablet) 1,000 mg PO Q6H PRN PRN Reason: Headache/Pain Mild Scale (1-3) Al Hydroxide/Mg Hydroxide (Magnesium Hydrox/Alum Hydrox 30 Ml Oral.Susp) 30 ml PO Q6H PRN PRN Reason: Heartburn/Nausea Clonidine HCl (Clonidine Hcl 0.1 Mg Tablet) 0.1 mg PO BEDTIME LASHELL; Protocol Last Admin: 03/21/21 20:37 Dose: 0.1 mg Documented by: Fluoxetine HCl (Fluoxetine Hcl 20 Mg Capsule) 20 mg PO DAILY LASHELL Last Admin: 03/22/21 08:45 Dose: 20 mg Documented by: Magnesium Hydroxide (Milk Of Magnesia 30 Ml Oral.Susp) 30 ml PO DAILY PRN PRN Reason: Constipation Last Admin: 03/20/21 19:41 Dose: 30 ml Documented by: Nicotine Polacrilex (Nicotine Polacrilex 2 Mg Gum) 2 mg BUCCAL Q1H PRN PRN Reason: nicotine craving Trazodone HCl (Trazodone Hcl 50 Mg Tablet) 50 mg PO BEDTIME PRN PRN Reason: continued insomnia Last Admin: 03/17/21 22:55 Dose: 50 mg Documented by: Trazodone HCl (Trazodone Hcl 50 Mg Tablet) 125 mg PO BEDTIME LASHELL Last Admin: 03/21/21 22:18 Dose: 125 mg Documented by: Allergies Allergies Allergy/AdvReac Type Severity Reaction Status Date / Time No Known Allergies Allergy Verified 02/04/21 09:59 Assessment & Plan Assessment & Plan (1) PTSD (post-traumatic stress disorder): Status: Chronic Code(s): F43.10 - Post-traumatic stress disorder, unspecified (2) Major depression, chronic: Status: Acute Code(s): F32.9 - Major depressive disorder, single episode, unspecified (3) Neuropathy: Status: Acute Code(s): G62.9 - Polyneuropathy, unspecified Assessment and Plan: on 03/14/[address] negative for CVA; 12/2020 MRI indicates sever lumbar disc degeneration and cervical spine narrowing Assessment and Plan: IMPRESSION: Pt is a 60 yo male w/ hx of depression, ptsd, spinal stenosis and neuropathy who presents for depressed mood with passive SI. Pt reports that he has been trying to cope with his depression and anxiety since his last admission, but his physical struggles with neuropathy have made this increasingly difficult. Compounding this issue are other pending psychosocial struggles such as dwindling funds and lack of any social support. This past week he developed additional neuropathic symptoms with loss of sensation in left side of body (on 03/14/[address] negative for CVA; 12/23 MRI indicates sever lumbar disc degeneration and cervical spine narrowing) which worsened his depression and triggered increase in suicidal thinking. -patient has passive wish however denies active SI and says he does not think he will however actually kill himself -patient has never tried antidepressant in his life time; he has also never been in therapy until year ago. Patient has become more accepting that he needs additional help to deal with his symptoms which are debilitating -patient agreed to trial of Prozac 10 mg daily; risks/side effects thoroughly reviewed and patient understands and agrees to trial. -mild nausea from Prozac however patient feels it is tolerable and will continue. Still anxious but does present as more calm and has been interacting with peers, enjoying group activities. No SI -a little down but stable and no SI. Tolerating Prozac 01/20 Patient continues to have passive wish, wishing he would just ; however he continues to deny any active SI, intent or plans and says he would not self-harm; he is future oriented and reports he will continue to try and manage his house-hold and other responsibilities. -he reports he continues to feel depressed and anxious with little to no repo rted change despite being started on Prozac. Patient also c/o of feeling cognitively foggy which he is wondering if it's due to Prozac (no cognitive deficiency observed). Patient accepts that it might take more time to see if Prozac 20 mg becomes effective and agrees to stay on it. The decision to finally try a medication was a for patient a brave one as this is the first time he's agreed to a trial of antidepressant. But for this same reason and combined with patient's deep anxieties in general and specifically about medications, it is difficult to assess if his reported experiences are actual side effects or if it's a patients anxiety-induced psychosomatic side-effect. Food Service Substitute believes patient would be best served by remaining on the unit for continued medication management (of either adding a second anti-depressant or stopping Prozac and trying a new one) as he remains depressed and with passive wish. He does not have any active SI and is not in imminent risk for harm to self or others, however he has a rapport with inpatient team and it is preferable to see if additional med management could make a difference and hopefully prevent future admissions. While these changes can also be made as an outpatient, patient's agoraphobia and anxiety issues have been barriers in the past and again it would be best to see if this can be accomplished while on the inpatient unit. DX: PTSD MDD GRAHAM Rule out dependent personality disorder PLAN: CV q15 min checks Prozac 20mg daily for ptsd/depression DC Prazosin 1mg qhs as may cause increased urination START clonidine 0.1 mg q.h.s. for nighttime anxiety trazodone 125 mg qhs with 50mg prn DC gabapentin : caused b/l lower limb edema even at 100mg c/o urinary frequency for months, however reports strong flow, and denies any dribbling or difficulty urinating; no dysuria; hx of dark urine but now reported as fully resolved; r/o [place]; pt reports hx of kidneys stones and renal cysts I spent minutes with the patient and/or on the patient floor today, greater than?50% of which was spent counseling/coordinating care. Reason for contiued inpatient stay Substantial Risk for: stable for discharge and rapid decompensation
[2021-03-22 18:00] VITALS: BP 132/79; PULSE 75
[2021-03-22] MEDS: cloNIDine HCL 0.1 MG TABLET PO (22:33)
[2021-03-22] MEDS: traZODone HCL 50 MG TABLET 125 MG PO (22:35)
[2021-03-23 06:00] VITALS: BP 121/69; PULSE 77; TEMP 36.1; O2SAT 97
[2021-03-23] MEDS: FLUoxetine HCl 20 MG CAPSULE PO (08:46)
--- NOTE | 2021-03-23 18:12 | HO.PSYCHPN ---
Subjective Subjective Date of Service: 03/23/21 Reason For Visit: Stroke? Interim History: Patient agreed to stay for additional medication management and treatment, to help alleviate anxiety depression Patient is adamant that he is cognitively foggy since starting Prozac. Help Desk Administrator reviewed options, risks/side effects/benefits of other medications, and patient decided mirtazapine (specifically over venlafaxine) since it helps with insomnia Mental Status Exam Mental Status Exam Narrative: ?Pt is alert and oriented; behavior is cooperative, friendly and calm; patient is not in distress; dressed in hospital gown with long hair and adequate hygiene; mood is described as anxious and affect congruent; eye contact appropriate; Speech is normal rate, volume and prosody and not pressured; no psychomotor agitation/retardation present; thought process is organized, linear, logical and goal directed, though can also be circumstantial. Thought content is on dealing with current life struggles; otherwise TC relevant to pertinent topics and without any delusional content, paranoid ideations or grandiosity; denies any SI/HI. There is no evidence of perceptual disturbance. ?Patients insight and judgment appear intact. Diagnostics Vital Signs (24Hr): Vital Signs - 24 hr 03/23/21 06:00 Temperature 97.0 F Pulse Rate 77 Blood Pressure 121/69 Pulse Oximetry 97 BMI result Body Mass Index 21.1 Labs Results: 03/14/21 21:56 03/14/21 21:56 Imaging Radiology Impressions: ITS Impressions Head CT 03/14/21 14:15 IMPRESSION: No acute intracranial process seen. Mild straightening of cervical lordosis likely cyst from spasm. Degenerative disc changes with spondylosis C5-C6 and C6-C7 disc levels. There is bilateral narrowing of neural foramina from uncovertebral hypertrophic changes. Cervical Spine CT 03/14/21 14:16 IMPRESSION: No acute intracranial process seen. Mild straightening of cervical lordosis likely cyst from spasm. Degenerative disc changes with spondylosis C5-C6 and C6-C7 disc levels. There is bilateral narrowing of neural foramina from uncovertebral hypertrophic changes. Medications Medications Current Medications Acetaminophen (Acetaminophen 325 Mg Tablet) 1,000 mg PO Q6H PRN PRN Reason: Headache/Pain Mild Scale (1-3) Al Hydroxide/Mg Hydroxide (Magnesium Hydrox/Alum Hydrox 30 Ml Oral.Susp) 30 ml PO Q6H PRN PRN Reason: Heartburn/Nausea Clonidine HCl (Clonidine Hcl 0.1 Mg Tablet) 0.1 mg PO BEDTIME PRN; Protocol PRN Reason: nighttime anxiety Magnesium Hydroxide (Milk Of Magnesia 30 Ml Oral.Susp) 30 ml PO DAILY PRN PRN Reason: Constipation Last Admin: 03/20/21 19:41 Dose: 30 ml Documented by: Mirtazapine (Mirtazapine 7.5 Mg Tablet) 7.5 mg PO BEDTIME LASHELL Nicotine Polacrilex (Nicotine Polacrilex 2 Mg Gum) 2 mg BUCCAL Q1H PRN PRN Reason: nicotine craving Trazodone HCl (Trazodone Hcl 50 Mg Tablet) 50 mg PO BEDTIME PRN PRN Reason: continued insomnia Last Admin: 03/17/21 22:55 Dose: 50 mg Documented by: Trazodone HCl (Trazodone Hcl 50 Mg Tablet) 125 mg PO BEDTIME LASHELL Last Admin: 03/22/21 22:35 Dose: 125 mg Documented by: Allergies Allergies Allergy/AdvReac Type Severity Reaction Status Date / Time No Known Allergies Allergy Verified 02/04/21 09:59 Assessment & Plan Assessment & Plan (1) PTSD (post-traumatic stress disorder): Status: Chronic Code(s): F43.10 - Post-traumatic stress disorder, unspecified (2) Major depression, chronic: Status: Acute Code(s): F32.9 - Major depressive disorder, single episode, unspecified (3) Neuropathy: Status: Acute Code(s): G62.9 - Polyneuropathy, unspecified Assessment and Plan: on 03/14/[address] negative for CVA; 12/2020 MRI indicates sever lumbar disc degeneration and cervical spine narrowing Assessment and Plan: IMPRESSION: Pt is a 60 yo male w/ hx of depression, ptsd, spinal stenosis and neuropathy who presents for depressed mood with passive SI. Pt reports that he has been trying to cope with his depression and anxiety since his last admission, but his physical struggles with neuropathy have made this increasingly difficult. Compounding this issue are other pending psychosocial struggles such as dwindling funds and lack of any social support. This past week he developed additional neuropathic symptoms with loss of sensation in left side of body (on 03/14/[address] negative for CVA; 12/23 MRI indicates sever lumbar disc degeneration and cervical spine narrowing) which worsened his depression and triggered increase in suicidal thinking. -patient has passive wish however denies active SI and says he does not think he will however actually kill himself -patient has never tried antidepressant in his life time; he has also never been in therapy until year ago. Patient has become more accepting that he needs additional help to deal with his symptoms which are debilitating -patient agreed to trial of Prozac 10 mg daily; risks/side effects thoroughly reviewed and patient understands and agrees to trial. -mild nausea from Prozac however patient feels it is tolerable and will continue. Still anxious but does present as more calm and has been interacting with peers, enjoying group activities. No SI -a little down but stable and no SI. Tolerating Prozac 01/20 Patient continues to have passive wish, wishing he would just ; however he continues to deny any active SI, intent or plans and says he would not self-harm; he is future oriented and reports he will continue to try and manage his house-hold and other responsibilities. -he reports he continues to feel depressed and anxious with little to no reported change despite being started on Prozac. Patient also c/o of feeling cognitively foggy which he is wondering if it's due to Prozac (no cognitive deficiency observed). Patient accepts that it might take more time to see if Prozac 20 mg becomes effective and agrees to stay on it. The decision to finally try a medication was a for patient a brave one as this is the first time he's agreed to a trial of antidepressant. But for this same reason and combined with patient's deep anxieties in general and specifically about medications, it is difficult to assess if his reported experiences are actual side effects or if it's a patients anxiety-induced psychosomatic side-effect. Help Desk Administrator believes patient would be best served by remaining on the unit for continued medication management (of either adding a second anti-depressant or stopping Prozac and trying a new one) as he remains depressed and with passive wish. He does not have any active SI and is not in imminent risk for harm to self or others, however he has a rapport with inpatient team and it is preferable to see if additional med management could make a difference and hopefully prevent future admissions. While these changes can also be made as an outpatient, patient's agoraphobia and anxiety issues have been barriers in the past and again it would be best to see if this can be accomplished while on the inpatient unit. DX: PTSD MDD GRAHAM Rule out dependent personality disorder PLAN: CV q15 min checks DC Prozac; not effective thus far; maybe causing some cognitive fogginess START mirtazapine 7.5 mg q.h.s. for depression, anxiety and help with insomnia DC Prazosin 1mg qhs as may cause increased urination clonidine 0.1 mg p.r.n. q.h.s. for nighttime anxiety trazodone 125 mg qhs with 50mg prn DC gabapentin : caused b/l lower limb edema even at 100mg c/o urinary frequency for months, however reports strong flow, and denies any dribbling or difficulty urinating; no dysuria; hx of dark urine but now reported as fully resolved; r/o Kenneth; pt reports hx of kidneys stones and renal cysts I spent minutes with the patient and/or on the patient floor today, greater than?50% of which was spent counseling/coordinating care. Reason for contiued inpatient stay Substantial Risk for: med/psych decompensation
[2021-03-23 18:25] VITALS: BP 136/75; PULSE 82; RESP 18; TEMP 36.8; O2SAT 98
[2021-03-23] MEDS: traZODone HCL 50 MG TABLET 125 MG PO (22:05)
[2021-03-23] MEDS: Mirtazapine 7.5 MG TABLET PO (22:05)
[2021-03-24 06:00] VITALS: BP 143/83; PULSE 78; RESP 18; TEMP 36.7; O2SAT 98
[2021-03-24 17:30] VITALS: BP 152/90; PULSE 80; RESP 18; TEMP 36.5; O2SAT 98
--- NOTE | 2021-03-24 17:45 | P.PNPSI_ITS ---
Subjective Subjective Date of Service: 03/24/21 Reason For Visit: Stroke? Interim History: Patient reports he slept much better last night. He says he feels more rested and his mood and anxiety are just a little bit better, however he mostly attributes this to sleep. Patient does say he feels a little less foggy today after Prozac has stopped and says he does not feel as tired. Patien t denies any negative side effects from starting mirtazapine 7.5 last night. He would like to stay on this dose another night and consider going up higher tomorrow to which insurance underwriter agrees. Mental Status Exam Mental Status Exam Narrative: Pt is alert and oriented; behavior is cooperative, friendly and calm; patient is not in distress; dressed in hospital gown with long hair and adequate hygiene; mood is described as better and affect congruent; eye contact appropriate; Speech is normal rate, volume and prosody and not pressured; no psychomotor agitation/retardation present; thought process is organized, linear, logical and goal directed, though can also be circumstantial. Thought content is on dealing with current life struggles; otherwise TC relevant to pertinent topics and without any delusional content, paranoid ideations or grandiosity; denies any SI/HI. There is no evidence of perceptual disturbance. ?Patients insight and judgment appear intact. Diagnostics Vital Signs (24Hr): Vital Signs - 24 hr 03/23/21 18:25 03/24/21 06:00 Temperature 98.2 F 98.1 F Pulse Rate 82 78 Respiratory Rate 18 18 Blood Pressure 136/75 143/83 H Pulse Oximetry 98 98 BMI result Body Mass Index 21.1 Labs Results: 03/14/21 21:56 03/14/21 21:56 Imaging Radiology Impressions: ITS Impressions Head CT 03/14/21 14:15 IMPRESSION: No acute intracranial process seen. Mild straightening of cervical lordosis likely cyst from spasm. Degenerative disc changes with spondylosis C5-C6 and C6-C7 disc levels. There is bilateral narrowing of neural foramina from uncovertebral hypertrophic changes. Cervical Spine CT 03/14/21 14:16 IMPRESSION: No acute intracranial process seen. Mild straightening of cervical lordosis likely cyst from spasm. Degenerative disc changes with spondylosis C5-C6 and C6-C7 disc levels. There is bilateral narrowing of neural foramina from uncovertebral hypertrophic changes. Medications Medications Current Medications Acetaminophen (Acetaminophen 325 Mg Tablet) 1,000 mg PO Q6H PRN PRN Reason: Headache/Pain Mild Scale (1-3) Al Hydroxide/Mg Hydroxide (Magnesium Hydrox/Alum Hydrox 30 Ml Oral.Susp) 30 ml PO Q6H PRN PRN Reason: Heartburn/Nausea Clonidine HCl (Clonidine Hcl 0.1 Mg Tablet) 0.1 mg PO BEDTIME PRN; Protocol PRN Reason: nighttime anxiety Magnesium Hydroxide (Milk Of Magnesia 30 Ml Oral.Susp) 30 ml PO DAILY PRN PRN Reason: Constipation Last Admin: 03/20/21 19:41 Dose: 30 ml Documented by: Mirtazapine (Mirtazapine 7.5 Mg Tablet) 7.5 mg PO BEDTIME LASHELL Last Admin: 03/23/21 22:05 Dose: 7.5 mg Documented by: Nicotine Polacrilex (Nicotine Polacrilex 2 Mg Gum) 2 mg BUCCAL Q1H PRN PRN Reason: nicotine craving Trazodone HCl (Trazodone Hcl 50 Mg Tablet) 50 mg PO BEDTIME PRN PRN Reason: continued insomnia Last Admin: 03/17/21 22:55 Dose: 50 mg Documented by: Trazodone HCl (Trazodone Hcl 50 Mg Tablet) 125 mg PO BEDTIME LASHELL Last Admin: 03/23/21 22:05 Dose: 125 mg Documented by: Allergies Allergies Allergy/AdvReac Type Severity Reaction Status Date / Time No Known Allergies Allergy Verified 02/04/21 09:59 Assessment & Plan Assessment & Plan (1) PTSD (post-traumatic stress disorder): Status: Chronic Code(s): F43.10 - Post-traumatic stress disorder, unspecified (2) Major depression, chronic: Status: Acute Code(s): F32.9 - Major depressive disorder, single episode, unspecified (3) Neuropathy: Status: Acute Code(s): G62.9 - Polyneuropathy, unspecified Assessment and Plan: on 03/14/[address] negative for CVA; 12/2020 MRI indicates sever lumbar disc degeneration and cervical spine narrowing Assessment and Plan: IMPRESSION: Pt is a 60 yo male w/ hx of depression, ptsd, spinal stenosis and neuropathy who presents for depressed mood with passive SI. Pt reports that he has been trying to cope with his depression and anxiety since his last admission, but his physical struggles with neuropathy have made this increasingly difficult. Compounding this issue are other pending psychosocial struggles such as dwindling funds and lack of any social support. This past week he developed additional neuropathic symptoms with loss of sensation in left side of body (on 03/14/[address] negative for CVA; 12/23 MRI indicates sever lumbar disc degeneration and cervical spine narrowing) which worsened his depression and triggered increase in suicidal thinking. -patient has passive wish however denies active SI and says he does not think he will however actually kill himself -patient has never tried antidepressant in his life time; he has also never been in therapy until year ago. Patient has become more accepting that he needs additional help to deal with his symptoms which are debilitating -patient agreed to trial of Prozac 10 mg daily; risks/side effects thoroughly reviewed and patient understands and agrees to trial. -mild nausea from Prozac however patient feels it is tolerable and will continue. Still anxious but does present as more calm and has been interacting with peers, enjoying group activities. No SI -a little down but stable and no SI. Tolerating Prozac 01/20 Patient continues to have passive wish, wishing he would just ; however he continues to deny any active SI, intent or plans and says he would not self-harm; he is future oriented and reports he will continue to try and manage his house-hold and other responsibilities. -he reports he continues to feel depressed and anxious with little to no reporte d change despite being started on Prozac. Patient also c/o of feeling cognitively foggy which he is wondering if it's due to Prozac (no cognitive deficiency observed). Patient accepts that it might take more time to see if Prozac 20 mg becomes effective and agrees to stay on it. The decision to fi carter try a medication was a for patient a brave one as this is the first time he's agreed to a trial of antidepressant. But for this same reason and combined with patient's deep anxieties in general and specifically about medications, it is difficult to assess if his reported experiences are actual side effects or if it's a patients anxiety-induced psychosomatic side-effect. Iron Worker Foreman believes pat ient would be best served by remaining on the unit for continued medication management (of either adding a second anti-depressant or stopping Prozac and trying a new one) as he remains depressed and with passive wish. He does not have any active SI and is not in imminent risk for harm to self or others, however he has a rapport with inpatient team and it is preferable to see if additional med management could make a difference and hopefully prevent future admissions. While these changes can also be made as an outpatient, patient's agoraphobia and anxiety issues have been barriers in the past and again it would be best to see if this can be accomplished while on the inpatient unit. 03/24 patient reports he got a good night's sleep after starting mirtazapine 7.5 mg. He also says he feels less cognitively foggy since Prozac is stopped; insurance underwriter recommends increasing mirtazapine and patient agrees to discuss with covering provider about increase DX: PTSD MDD GRAHAM Rule out dependent personality disorder PLAN: CV q15 min checks Continue mirtazapine 7.5 mg q.h.s. for depression, anxiety and help with insomnia; patient will likely need increased dose to see if he tolerates prior t o discharge DC Prozac; not effective thus far; maybe causing some cognitive fogginess clonidine 0.1 mg p.r.n. q.h.s. for nighttime anxiety trazodone 125 mg qhs with 50mg prn DC Prazosin 1mg qhs as may cause increased urination DC gabapentin : caused b/l lower limb edema even at 100mg c/o urinary frequency for months, however reports strong flow, and denies any dribbling or difficulty urinating; no dysuria; hx of dark urine but now reported as fully resolved; r/o Kenneth; pt reports hx of kidneys stones and renal cysts I spent minutes with the patient and/or on the patient floor today, greater than?50% of which was spent counseling/coordinating care. Reason for contiued inpatient stay Substantial Risk for: stable for discharge
[2021-03-24] MEDS: traZODone HCL 50 MG TABLET 125 MG PO (22:05)
[2021-03-24] MEDS: Mirtazapine 7.5 MG TABLET PO (22:06)
[2021-03-25 06:00] VITALS: BP 114/67; PULSE 67; TEMP 36.4; O2SAT 97
[2021-03-25 18:00] VITALS: BP 139/76; PULSE 48
--- NOTE | 2021-03-25 19:51 | P.PNPSI_ITS ---
Subjective Subjective Date of Service: 03/25/21 Reason For Visit: Stroke? Interim History: Patient seen and discussed with team. Patient evaluated this morning and upon interview he reports remeron has been helping with sleep a little. Says his mood is up and down. He attributes this to being worried about wt gain, financial stress, worries about having heat in his home. Says he still wakes up with frequent urination, saw a urologist in February, but says there were no interventions and he is supposed to follow up in 6 mo. Pt is loquacious, wants to talk in great detail about his physical health concerns and issues at home, says its been one thing after another for stressors. His primary complaints remain his anxiety and that Im an insomniac. However, he declined a dose increase in remeron, saying its all new to me with medication. In the milieu, patient is safe and appropriate in behavior. Denies SI/SIB/HI upon inquiry. Denies irritability or assaultive ideation. Says he feels safe. Mental Status Exam Mental Status Exam Narrative: Patient Appearance:?Well Groomed, long hair Patient Orientation:?Person and Place Level of Consciousness:?Awake Patient Behavior:?Appropriate, calm, cooperative Mood Description:? anxious Affect Description:?Calm Speech Pattern:?Clear, talkative Hallucinations:?None Delusions:?Not Present Thought Content:?circumstantial, negative for Suicidal Ideation or negative for Homicidal Ideation Depressive Symptoms:?Increased Anxiety Diagnostics Vital Signs (24Hr): Vital Signs - 24 hr 03/25/21 06:00 Temperature 97.6 F Pulse Rate 67 Blood Pressure 114/67 Pulse Oximetry 97 BMI result Body Mass Index 21.1 Labs Results: 03/14/21 21:56 03/14/21 21:56 Imaging Radiology Impressions: ITS Impressions Head CT 03/14/21 14:15 IMPRESSION: No acute intracranial process seen. Mild straightening of cervical lordosis likely cyst from spasm. Degenerative disc changes with spondylosis C5-C6 and C6-C7 disc levels. There is bilateral narrowing of neural foramina from uncovertebral hypertrophic changes. Cervical Spine CT 03/14/21 14:16 IMPRESSION: No acute intracranial process seen. Mild straightening of cervical lordosis likely cyst from spasm. Degenerative disc changes with spondylosis C5-C6 and C6-C7 disc levels. There is bilateral narrowing of neural foramina from uncovertebral hypertrophic changes. Medications Medications Current Medications Acetaminophen (Acetaminophen 325 Mg Tablet) 1,000 mg PO Q6H PRN PRN Reason: Headache/Pain Mild Scale (1-3) Al Hydroxide/Mg Hydroxide (Magnesium Hydrox/Alum Hydrox 30 Ml Oral.Susp) 30 ml PO Q6H PRN PRN Reason: Heartburn/Nausea Clonidine HCl (Clonidine Hcl 0.1 Mg Tablet) 0.1 mg PO BEDTIME PRN; Protocol PRN Reason: nighttime anxiety Magnesium Hydroxide (Milk Of Magnesia 30 Ml Oral.Susp) 30 ml PO DAILY PRN PRN Reason: Constipation Last Admin: 03/20/21 19:41 Dose: 30 ml Documented by: Mirtazapine (Mirtazapine 7.5 Mg Tablet) 7.5 mg PO BEDTIME LASHELL Last Admin: 03/24/21 22:06 Dose: 7.5 mg Documented by: Nicotine Polacrilex (Nicotine Polacrilex 2 Mg Gum) 2 mg BUCCAL Q1H PRN PRN Reason: nicotine craving Trazodone HCl (Trazodone Hcl 50 Mg Tablet) 50 mg PO BEDTIME PRN PRN Reason: continued insomnia Last Admin: 03/17/21 22:55 Dose: 50 mg Documented by: Trazodone HCl (Trazodone Hcl 50 Mg Tablet) 125 mg PO BEDTIME LASHELL Last Admin: 03/24/21 22:05 Dose: 125 mg Documented by: Allergies Allergies Allergy/AdvReac Type Severity Reaction Status Date / Time No Known Allergies Allergy Verified 02/04/21 09:59 Assessment & Plan Assessment & Plan (1) PTSD (post-traumatic stress disorder): Status: Chronic Code(s): F43.10 - Post-traumatic stress disorder, unspecified (2) Major depression, chronic: Status: Acute Code(s): F32.9 - Major depressive disorder, single episode, unspecified (3) Neuropathy: Status: Acute Code(s): G62.9 - Polyneuropathy, unspecified Assessment and Plan: on 03/14/[address] negative for CVA; 12/2020 MRI indicates sever lumbar disc degeneration and cervical spine narrowing Assessment and Plan: IMPRESSION: Pt is a 60 yo male w/ hx of depression, ptsd, spinal stenosis and neuropathy who presents for depressed mood with passive SI. Pt reports that he has been trying to cope with his depression and anxiety since his last admission, but his physical struggles with neuropathy have made this increasingly difficult. Compounding this issue are other pending psychosocial struggles such as dwindling funds and lack of any social support. This past week he developed additional neuropathic symptoms with loss of sensation in left side of body (on 03/14/[address] negative for CVA; 12/23 MRI indicates sever lumbar disc degeneration and cervical spine narrowing) which worsened his depression and triggered increase in suicidal thinking. -patient has passive wish however denies active SI and says he does not think he will however actually kill himself -patient has never tried antidepressant in his life time; he has also never been in therapy until year ago. Patient has become more accepting that he needs additional help to deal with his symptoms which are debilitating -patient agreed to trial of Prozac 10 mg daily; risks/side effects thoroughly reviewed and patient understands and agrees to trial. -mild nausea from Prozac however patient feels it is tolerable and will continue. Still anxious but does present as more calm and has been interacting with peers, enjoying group activities. No SI -a little down but stable and no SI. Tolerating Prozac 01/20 Patient continues to have passive wish, wishing he would just ; however he continues to deny any active SI, intent or plans and says he would not self-harm; he is future oriented and reports he will continue to try and manage his house-hold and other responsibilities. -he reports he continues to feel depressed and anxious with little to no reported change despite being started on Prozac. Patient also c/o of feeling cognitively foggy which he is wondering if it's due to Prozac (no cognitive deficiency observed). Patient accepts that it might take more time to see if Prozac 20 mg becomes effective and agrees to stay on it. The decision to finally try a medication was a for patient a brave one as this is the first time he's agreed to a trial of antidepressant. But for this same reason and combined with patient's deep anxieties in general and specifically about medications, it is difficult to assess if his reported experiences are actual side effects or if it's a patients anxiety-induced psychosomatic side-effect. Air Brake Tester believes patient would be best served by remaining on the unit for continued medication management (of either adding a second anti-depressant or stopping Prozac and trying a new one) as he remains depressed and with passive wish. He does not have any active SI and is not in imminent risk for harm to self or others, however he has a rapport with inpatient team and it is preferable to see if additional med management could make a difference and hopefully prevent future admissions. While these changes can also be made as an outpatient, patient's agoraphobia and anxiety issues have been barriers in the past and again it would be best to see if this can be accomplished while on the inpatient unit. 03/24 patient reports he got a good night's sleep after starting mirtazapine 7.5 mg. He also says he feels less cognitively foggy since Prozac is stopped; expert medical writer recommends increasing mirtazapine and patient agrees to discuss with co vering provider about increase 03/25: Pt declines increase in mirtazapine and wants to give it more time on 7.5 mg. Continues to report issues with anxiety, sleep. DX: PTSD MDD GRAHAM Rule out dependent personality disorder PLAN: CV q15 min checks Continue mirtazapine 7.5 mg q.h.s. for depression, anxiety and help with insomnia; patient will likely need increased dose to see if he tolerates prior to discharge DC Prozac; not effective thus far; maybe causing some cognitive fogginess clonidine 0.1 mg p.r.n. q.h.s. for nighttime anxiety trazodone 125 mg qhs with 50mg prn DC Prazosin 1mg qhs as may cause increased urination DC gabapentin : caused b/l lower limb edema even at 100mg c/o urinary frequency for months, however reports strong flow, and denies any dribbling or difficulty urinating; no dysuria; hx of dark urine but now reported as fully resolved; r/o [place]; pt reports hx of kidneys stones and renal cysts I spent minutes with the patient and/or on the patient floor today, greater than?50% of which was spent counseling/coordinating care. Reason for contiued inpatient stay Substantial Risk for: rapid decompensation and med/psych decompensation
[2021-03-25] MEDS: Acetaminophen 325 MG TABLET 1000 MG PO (21:34)
[2021-03-25] MEDS: traZODone HCL 50 MG TABLET 125 MG PO (22:20)
[2021-03-25] MEDS: Mirtazapine 7.5 MG TABLET PO (22:20)
[2021-03-26 06:00] VITALS: BP 117/74; PULSE 66; RESP 16; TEMP 36.6; O2SAT 98
--- NOTE | 2021-03-26 12:03 | HO.PSYCHPN ---
Subjective Subjective Date of Service: 03/26/21 Reason For Visit: Stroke? Subjective Notes: Conditional Voluntary Interim History: Patient reports he slept much better last night. He says he feels more rested and his mood and anxiety are just a little bit better, however he mostly attributes this to sleep. He complains about his room mate who is on the opposite schedule to his and who keeps him awake. Review of Systems Review of Systems Yes all other systems are reviewed and are negative Gastrointestinal: Reports constipation Genitourinary: Reports urinary frequency (for months) Musculoskeletal: Reports numbness (left arm/leg ) Reports numbness (left arm/leg ) Mental Status Exam Mental Status Exam Narrative: Pt is alert and oriented; behavior is cooperative, friendly and calm; patient is not in distress; dressed in hospital gown with long hair and adequate hygiene; mood is described as better and affect congruent; eye contact appropriate; Speech is normal rate, volume and prosody and not pressured; no psychomotor agitation/retardation present; thought process is organized, linear, logical and goal directed, though can also be circumstantial. Thought content is on dealing with current life struggles; otherwise TC relevant to pertinent topics and without any delusional content, paranoid ideations or grandiosity; denies any SI/HI. There is no evidence of perceptual disturbance. ?Patients insight and judgment appear intact. Diagnostics Vital Signs (24Hr): Vital Signs - 24 hr 03/25/21 18:00 03/26/21 06:00 Temperature 97.9 F Pulse Rate 48 L 66 Respiratory Rate 16 Blood Pressure 139/76 117/74 Pulse Oximetry 98 BMI result Body Mass Index 21.1 Labs Results: 03/14/21 21:56 03/14/21 21:56 Imaging Radiology Impressions: ITS Impressions Head CT 03/14/21 14:15 IMPRESSION: No acute intracranial process seen. Mild straightening of cervical lordosis likely cyst from spasm. Degenerative disc changes with spondylosis C5-C6 and C6-C7 disc levels. There is bilateral narrowing of neural foramina from uncovertebral hypertrophic changes. Cervical Spine CT 03/14/21 14:16 IMPRESSION: No acute intracranial process seen. Mild straightening of cervical lordosis likely cyst from spasm. Degenerative disc changes with spondylosis C5-C6 and C6-C7 disc levels. There is bilateral narrowing of neural foramina from uncovertebral hypertrophic changes. Medications Medications Current Medications Acetaminophen (Acetaminophen 325 Mg Tablet) 1,000 mg PO Q6H PRN PRN Reason: Headache/Pain Mild Scale (1-3) Last Admin: 03/25/21 21:34 Dose: 650 mg Documented by: Al Hydroxide/Mg Hydroxide (Magnesium Hydrox/Alum Hydrox 30 Ml Oral.Susp) 30 ml PO Q6H PRN PRN Reason: Heartburn/Nausea Clonidine HCl (Clonidine Hcl 0.1 Mg Tablet) 0.1 mg PO BEDTIME PRN; Protocol PRN Reason: nighttime anxiety Magnesium Hydroxide (Milk Of Magnesia 30 Ml Oral.Susp) 30 ml PO DAILY PRN PRN Reason: Constipation Last Admin: 03/20/21 19:41 Dose: 30 ml Documented by: Mirtazapine (Mirtazapine 7.5 Mg Tablet) 7.5 mg PO BEDTIME LASHELL Last Admin: 03/25/21 22:20 Dose: 7.5 mg Documented by: Nicotine Polacrilex (Nicotine Polacrilex 2 Mg Gum) 2 mg BUCCAL Q1H PRN PRN Reason: nicotine craving Trazodone HCl (Trazodone Hcl 50 Mg Tablet) 50 mg PO BEDTIME PRN PRN Reason: continued insomnia Last Admin: 03/17/21 22:55 Dose: 50 mg Documented by: Trazodone HCl (Trazodone Hcl 50 Mg Tablet) 125 mg PO BEDTIME LASHELL Last Admin: 03/25/21 22:20 Dose: 125 mg Documented by: Allergies Allergies Allergy/AdvReac Type Severity Reaction Status Date / Time No Known Allergies Allergy Verified 02/04/21 09:59 Assessment & Plan Assessment & Plan (1) PTSD (post-traumatic stress disorder): Status: Chronic Code(s): F43.10 - Post-traumatic stress disorder, unspecified (2) Major depression, chronic: Status: Acute Code(s): F32.9 - Major depressive disorder, single episode, unspecified (3) Neuropathy: Status: Acute Code(s): G62.9 - Polyneuropathy, unspecified Assessment and Plan: on 03/14/[address] negative for CVA; 12/2020 MRI indicates sever lumbar disc degeneration and cervical spine narrowing Assessment and Plan: IMPRESSION: Pt is a 60 yo male w/ hx of depression, ptsd, spinal stenosis and neuropathy who presents for depressed mood with passive SI. Pt reports that he has been trying to cope with his depression and anxiety since his last admission, but his physical struggles with neuropathy have made this increasingly difficult. Compounding this issue are other pending psychosocial struggles such as dwindling funds and lack of any social support. This past week he developed additional neuropathic symptoms with loss of sensation in left side of body (on 03/14/[address] negative for CVA; 12/23 MRI indicates sever lumbar disc degeneration and cervical spine narrowing) which worsened his depression and triggered increase in suicidal thinking. -patient has passive wish however denies active SI and says he does not think he will however actually kill himself -patient has never tried antidepressant in his life time; he has also never been in therapy until year ago. Patient has become more accepting that he needs additional help to deal with his symptoms which are debilitating -patient agreed to trial of Prozac 10 mg daily; risks/side effects thoroughly reviewed and patient understands and agrees to trial. -mild nausea from Prozac however patient feels it is tolerable and will continue. Still anxious but does present as more calm and has been interacting with peers, enjoying group activities. No SI -a little down but stable and no SI. Tolerating Prozac 01/20 Patient continues to have passive wish, wishing he would just ; however he continues to deny any active SI, intent or plans and says he would not self-harm; he is future oriented and reports he will continue to try and manage his house-hold and other responsibilities. -he reports he continues to feel depressed and anxious with little to no reported change despite being started on Prozac. Patient also c/o of feeling cognitively foggy which he is wondering if it's due to Prozac (no cognitive deficiency observed). Patient accepts that it might take more time to see if Prozac 20 mg becomes effective and agrees to stay on it. The decision to finally try a medication was a for patient a brave one as this is the first time he's agreed to a trial of antidepressant. But for this same reason and combined with patient's deep anxieties in general and specifically about medications, it is difficult to assess if his reported experiences are actual side effects or if it's a patients anxiety-induced psychosomatic side-effect. Pallet Rectifier believes patient would be best served by remaining on the unit for continued medication management (of either adding a second anti-depressant or stopping Prozac and trying a new one) as he remains depressed and with passive wish. He does not have any active SI and is not in imminent risk for harm to self or others, however he has a rapport with inpatient team and it is preferable to see if additional med management could make a difference and hopefully prevent future admissions. While these changes can also be made as an outpatient, patient's agoraphobia and anxiety issues have been barriers in the past and again it would be best to see if this can be accomplished while on the inpatient unit. 03/24 patient reports he got a good night's sleep after starting mirtazapine 7.5 mg. He also says he feels less cognitively foggy since Prozac is stopped; staff writer recommends increasing mirtazapine and patient agrees to discuss with covering provider about increase 03/26/21 No change to the above plan. DX: PTSD MDD GRAHAM Rule out dependent personality disorder PLAN: CV q15 min checks Continue mirtazapine 7.5 mg q.h.s. for depression, anxiety and help with insomnia; patient will likely need increased dose to see if he tolerates prior to discharge DC Prozac; not effective thus far; maybe causing some cognitive fogginess clonidine 0.1 mg p.r.n. q.h.s. for nighttime anxiety trazodone 125 mg qhs with 50mg prn DC Prazosin 1mg qhs as may cause increased urination DC gabapentin : caused b/l lower limb edema even at 100mg c/o urinary frequency for months, however reports strong flow, and denies any dribbling or difficulty urinating; no dysuria; hx of dark urine but now reported as fully resolved; r/o [place]; pt reports hx of kidneys stones and renal cysts I spent minutes with the patient and/or on the patient floor today, greater than?50% of which was spent counseling/coordinating care. Reason for contiued inpatient stay Substantial Risk for: inability to function
--- NOTE | 2021-03-26 12:07 | HO.PSYCHPN ---
Subjective Subjective Date of Service: 03/26/21 Reason For Visit: Stroke? Diagnostics Vital Signs (24Hr): Vital Signs - 24 hr 03/25/21 18:00 03/26/21 06:00 Temperature 97.9 F Pulse Rate 48 L 66 Respiratory Rate 16 Blood Pressure 139/76 117/74 Pulse Oximetry 98 BMI result Body Mass Index 21.1 Labs Results: 03/14/21 21:56 03/14/21 21:56 Imaging Radiology Impressions: ITS Impressions Head CT 03/14/21 14:15 IMPRESSION: No acute intracranial process seen. Mild straightening of cervical lordosis likely cyst from spasm. Degenerative disc changes with spondylosis C5-C6 and C6-C7 disc levels. There is bilateral narrowing of neural foramina from uncovertebral hypertrophic changes. Cervical Spine CT 03/14/21 14:16 IMPRESSION: No acute intracranial process seen. Mild straightening of cervical lordosis likely cyst from spasm. Degenerative disc changes with spondylosis C5-C6 and C6-C7 disc levels. There is bilateral narrowing of neural foramina from uncovertebral hypertrophic changes. Medications Medications Current Medications Acetaminophen (Acetaminophen 325 Mg Tablet) 1,000 mg PO Q6H PRN PRN Reason: Headache/Pain Mild Scale (1-3) Last Admin: 03/25/21 21:34 Dose: 650 mg Documented by: Al Hydroxide/Mg Hydroxide (Magnesium Hydrox/Alum Hydrox 30 Ml Oral.Susp) 30 ml PO Q6H PRN PRN Reason: Heartburn/Nausea Clonidine HCl (Clonidine Hcl 0.1 Mg Tablet) 0.1 mg PO BEDTIME PRN; Protocol PRN Reason: nighttime anxiety Magnesium Hydroxide (Milk Of Magnesia 30 Ml Oral.Susp) 30 ml PO DAILY PRN PRN Reason: Constipation Last Admin: 03/20/21 19:41 Dose: 30 ml Documented by: Mirtazapine (Mirtazapine 7.5 Mg Tablet) 7.5 mg PO BEDTIME LASHELL Last Admin: 03/25/21 22:20 Dose: 7.5 mg Documented by: Nicotine Polacrilex (Nicotine Polacrilex 2 Mg Gum) 2 mg BUCCAL Q1H PRN PRN Reason: nicotine craving Trazodone HCl (Trazodone Hcl 50 Mg Tablet) 50 mg PO BEDTIME PRN PRN Reason: continued insomnia Last Admin: 03/17/21 22:55 Dose: 50 mg Documented by: Trazodone HCl (Trazodone Hcl 50 Mg Tablet) 125 mg PO BEDTIME LASHELL Last Admin: 03/25/21 22:20 Dose: 125 mg Documented by: Allergies Allergies Allergy/AdvReac Type Severity Reaction Status Date / Time No Known Allergies Allergy Verified 02/04/21 09:59 Assessment & Plan Assessment & Plan (1) PTSD (post-traumatic stress disorder): Status: Chronic Code(s): F43.10 - Post-traumatic stress disorder, unspecified (2) Major depression, chronic: Status: Acute Code(s): F32.9 - Major depressive disorder, single episode, unspecified (3) Neuropathy: Status: Acute Code(s): G62.9 - Polyneuropathy, unspecified Assessment and Plan: on 03/14/[address] negative for CVA; 12/2020 MRI indicates sever lumbar disc degeneration and cervical spine narrowing Assessment and Plan: IMPRESSION: Pt is a 60 yo male w/ hx of depression, ptsd, spinal stenosis and neuropathy who presents for depressed mood with passive SI. Pt reports that he has been trying to cope with his depression and anxiety since his last admission, but his physical struggles with neuropathy have made this increasingly difficult. Compounding this issue are other pending psychosocial struggles such as dwindling funds and lack of any social support. This past week he developed additional neuropathic symptoms with loss of sensation in left side of body (on 03/14/[address] negative for CVA; 12/23 MRI indicates sever lumbar disc degeneration and cervical spine narrowing) which worsened his depression and triggered increase in suicidal thinking. -patient has passive wish however denies active SI and says he does not think he will however actually kill himself -patient has never tried antidepressant in his life time; he has also never been in therapy until year ago. Patient has become more accepting that he needs additional help to deal with his symptoms which are debilitating -patient agreed to trial of Prozac 10 mg daily; risks/side effects thoroughly reviewed and patient understands and agrees to trial. -mild nausea from Prozac however patient feels it is tolerable and will continue. Still anxious but does present as more calm and has been interacting with peers, enjoying group activities. No SI -a little down but stable and no SI. Tolerating Prozac 01/20 Patient continues to have passive wish, wishing he would just ; however he continues to deny any active SI, intent or plans and says he would not self-harm; he is future oriented and reports he will continue to try and manage his house-hold and other responsibilities. -he reports he continues to feel depressed and anxious with little to no reported change despite being started on Prozac. Patient also c/o of feeling cognitively foggy which he is wondering if it's due to Prozac (no cognitive deficiency observed). Patient accepts that it might take more time to see if Prozac 20 mg becomes effective and agrees to stay on it. The decision to finally try a medication was a for patient a brave one as this is the first time he's agreed to a trial of antidepressant. But for this same reason and combined with patient's deep anxieties in general and specifically about medications, it is difficult to assess if his reported experiences are actual side effects or if it's a patients anxiety-induced psychosomatic side-effect. Web Press Operator believes patient would be best served by remaining on the unit for continued medication management (of either adding a second anti-depressant or stopping Prozac and trying a new one) as he remains depressed and with passive wish. He does not have any active SI and is not in imminent risk for harm to self or others, however he has a rapport with inpatient team and it is preferable to see if additional med management could make a difference and hopefully prevent future admissions. While these changes can also be made as an outpatient, patient's agoraphobia and anxiety issues have been barriers in the past and again it would be best to see if this can be accomplished while on the inpatient unit. 03/24 patient reports he got a good night's sleep after starting mirtazapine 7.5 mg. He also says he feels less cognitively foggy since Prozac is stopped; documentation writer recommends increasing mirtazapine and patient agrees to discuss with covering provider about increase 03/26/21 No change to the above plan. DX: PTSD MDD GRAHAM Rule out dependent personality disorder PLAN: CV q15 min checks Continue mirtazapine 7.5 mg q.h.s. for depression, anxiety and help with insomnia; patient will likely need increased dose to see if he tolerates prior to discharge DC Prozac; not effective thus far; maybe causing some cognitive fogginess clonidine 0.1 mg p.r.n. q.h.s. for nighttime anxiety trazodone 125 mg qhs with 50mg prn DC Prazosin 1mg qhs as may cause increased urination DC gabapentin : caused b/l lower limb edema even at 100mg c/o urinary frequency for months, however reports strong flow, and denies any dribbling or difficulty urinating; no dysuria; hx of dark urine but now reported as fully resolved; r/o Kenneth; pt reports hx of kidneys stones and renal cysts I spent minutes with the patient and/or on the patient floor today, greater than?50% of which was spent counseling/coordinating care.
[2021-03-26 17:37] VITALS: BP 141/80; PULSE 86
[2021-03-26] MEDS: traZODone HCL 50 MG TABLET 125 MG PO (21:51)
[2021-03-26] MEDS: Mirtazapine 7.5 MG TABLET PO (21:51)
[2021-03-27 06:00] VITALS: BP 126/71; PULSE 68; RESP 16; TEMP 36.5; O2SAT 97
[2021-03-27] MEDS: Acetaminophen 325 MG TABLET 975 MG PO (09:22)
[2021-03-27 17:08] LABS: Appearance Urine CLEAR; Color Urine YELLOW; Glucose Urine UA NEG (NEG); Leukocyte Esterase Urine NEG (NEG); Nitrite Urine NEG (NEG); Specific Gravity - Urine >= 1.030 (1.005-1.025); UACC Culture Trigger NO; Urine Blood TRACE (NEG); Urine Ketones NEG (NEG); Urine Protein NEG (NEG-TRACE)
[2021-03-27 17:15] LABS: Squamous Epithelial Cell Urine TRACE /LPF; WBC Urine 0-2 /HPF (0-4)
--- NOTE | 2021-03-27 18:11 | HO.PSYCHPN ---
Subjective Subjective Date of Service: 03/27/21 Reason For Visit: Stroke? Subjective Notes: Conditional Voluntary Interim History: Сергей expressed anxiety about what he might face when he goes home tomorrow. He is able to recognize that this is normal. Pain issues are well controlled at this time. Review of Systems Review of Systems Yes all other systems are reviewed and are negative Gastrointestinal: Reports constipation Genitourinary: Reports urinary frequency (for months) Musculoskeletal: Reports numbness (left arm/leg ) Reports numbness (left arm/leg ) Mental Status Exam Mental Status Exam Patient Appearance: Well Grooomed Patient Orientation: Person and Place Level of Consciousness: Awake Patient Behavior: Appropriate Mood Description: Calm Affect Description: Calm Speech Pattern: Clear Hallucinations: None Delusions: Not Present Thought Content: negative for Suicidal Ideation or negative for Homicidal Ideation Depressive Symptoms: Increased Anxiety Diagnostics Vital Signs (24Hr): Vital Signs - 24 hr 03/27/21 06:00 Temperature 97.7 F Pulse Rate 68 Respiratory Rate 16 Blood Pressure 126/71 Pulse Oximetry 97 BMI result Body Mass Index 21.1 Labs Results: 03/14/21 21:56 03/14/21 21:56 Labs: Laboratory Results - last 48 hr 03/27/21 16:57 Urine Color YELLOW Urine Appearance CLEAR Urine pH 6.0 Ur Specific Ransom >= 1.030 H Urine Protein NEG Urine Glucose (UA) NEG Urine Ketones NEG Urine Blood TRACE Urine Nitrite NEG Ur Leukocyte Esterase NEG Urine RBC 5-9 H Urine WBC 0-2 Ur Squamous Epith Cells TRACE Urine Bacteria NONE Imaging Radiology Impressions: ITS Impressions Head CT 03/14/21 14:15 IMPRESSION: No acute intracranial process seen. Mild straightening of cervical lordosis likely cyst from spasm. Degenerative disc changes with spondylosis C5-C6 and C6-C7 disc levels. There is bilateral narrowing of neural foramina from uncovertebral hypertrophic changes. Cervical Spine CT 03/14/21 14:16 IMPRESSION: No acute intracranial process seen. Mild straightening of cervical lordosis likely cyst from spasm. Degenerative disc changes with spondylosis C5-C6 and C6-C7 disc levels. There is bilateral narrowing of neural foramina from uncovertebral hypertrophic changes. Medications Medications Current Medications Acetaminophen (Acetaminophen 325 Mg Tablet) 975 mg PO Q6H PRN PRN Reason: Headache/Pain Mild Scale (1-3) Last Admin: 03/27/21 09:22 Dose: 975 mg Documented by: Al Hydroxide/Mg Hydroxide (Magnesium Hydrox/Alum Hydrox 30 Ml Oral.Susp) 30 ml PO Q6H PRN PRN Reason: Heartburn/Nausea Clonidine HCl (Clonidine Hcl 0.1 Mg Tablet) 0.1 mg PO BEDTIME PRN; Protocol PRN Reason: nighttime anxiety Magnesium Hydroxide (Milk Of Magnesia 30 Ml Oral.Susp) 30 ml PO DAILY PRN PRN Reason: Constipation Last Admin: 03/20/21 19:41 Dose: 30 ml Documented by: Mirtazapine (Mirtazapine 7.5 Mg Tablet) 7.5 mg PO BEDTIME LASHELL Last Admin: 03/26/21 21:51 Dose: 7.5 mg Documented by: Nicotine Polacrilex (Nicotine Polacrilex 2 Mg Gum) 2 mg BUCCAL Q1H PRN PRN Reason: nicotine craving Trazodone HCl (Trazodone Hcl 50 Mg Tablet) 50 mg PO BEDTIME PRN PRN Reason: continued insomnia Last Admin: 03/17/21 22:55 Dose: 50 mg Documented by: Trazodone HCl (Trazodone Hcl 50 Mg Tablet) 125 mg PO BEDTIME LASHELL Last Admin: 03/26/21 21:51 Dose: 125 mg Documented by: Allergies Allergies Allergy/AdvReac Type Severity Reaction Status Date / Time No Known Allergies Allergy Verified 02/04/21 09:59 Assessment & Plan Assessment & Plan (1) PTSD (post-traumatic stress disorder): Status: Chronic Code(s): F43.10 - Post-traumatic stress disorder, unspecified (2) Major depression, chronic: Status: Acute Code(s): F32.9 - Major depressive disorder, single episode, unspecified (3) Neuropathy: Status: Acute Code(s): G62.9 - Polyneuropathy, unspecified Assessment and Plan: on 03/14/[address] negative for CVA; 12/2020 MRI indicates sever lumbar disc degeneration and cervical spine narrowing Assessment and Plan: IMPRESSION: Pt is a 60 yo male w/ hx of depression, ptsd, spinal stenosis and neuropathy who presents for depressed mood with passive SI. Pt reports that he has been trying to cope with his depression and anxiety since his last admission, but his physical struggles with neuropathy have made this increasingly difficult. Compounding this issue are other pending psychosocial struggles such as dwindling funds and lack of any social support. This past week he developed additional neuropathic symptoms with loss of sensation in left side of body (on 03/14/[address] negative for CVA; 12/23 MRI indicates sever lumbar disc degeneration and cervical spine narrowing) which worsened his depression and triggered increase in suicidal thinking. -patient has passive wish however denies active SI and says he does not think he will however actually kill himself -patient has never tried antidepressant in his life time; he has also never been in therapy until year ago. Patient has become more accepting that he needs additional help to deal with his symptoms which are debilitating -patient agreed to trial of Prozac 10 mg daily; risks/side effects thoroughly reviewed and patient understands and agrees to trial. -mild nausea from Prozac however patient feels it is tolerable and will continue. Still anxious but does present as more calm and has been interacting with peers, enjoying group activities. No SI -a little down but stable and no SI. Tolerating Prozac 01/20 Patient continues to have passive wish, wishing he would just ; however he continues to deny any active SI, intent or plans and says he would not self-harm; he is future oriented and reports he will continue to try and manage his house-hold and other responsibilities. -he reports he continues to feel depressed and anxious with little to no reported change despite being started on Prozac. Patient also c/o of feeling cognitively foggy which he is wondering if it's due to Prozac (no cognitive deficiency observed). Patient accepts that it might take more time to see if Prozac 20 mg becomes effective and agrees to stay on it. The decision to finally try a medication was a for patient a brave one as this is the first time he's agreed to a trial of antidepressant. But for this same reason and combined with patient's deep anxieties in general and specifically about medications, it is difficult to assess if his reported experiences are actual side effects or if it's a patients anxiety-induced psychosomatic side-effect. Glass Vial Bending Conveyor Feeder believes patient would be best served by remaining on the unit for continued medication management (of either adding a second anti-depressant or stopping Prozac and trying a new one) as he remains depressed and with passive wish. He does not have any active SI and is not in imminent risk for harm to self or others, however he has a rapport with inpatient team and it is preferable to see if additional med management could make a difference and hopefully prevent future admissions. While these changes can also be made as an outpatient, patient's agoraphobia and anxiety issues have been barriers in the past and again it would be best to see if this can be accomplished while on the inpatient unit. 03/24 patient reports he got a good night's sleep after starting mirtazapine 7.5 mg. He also says he feels less cognitively foggy since Prozac is stopped; policy writer sales recommends increasing mirtazapine and patient agrees to discuss with covering provider about increase 03/26/21 No change to the above plan. 03/27/21 No changes to the treatment plan. DX: PTSD MDD GRAHAM Rule out dependent personality disorder PLAN: CV q15 min checks Continue mirtazapine 7.5 mg q.h.s. for depression, anxiety and help with insomnia; patient will likely need increased dose to see if he tolerates prior to discharge DC Prozac; not effective thus far; maybe causing some cognitive fogginess clonidine 0.1 mg p.r.n. q.h.s. for nighttime anxiety trazodone 125 mg qhs with 50mg prn DC Prazosin 1mg qhs as may cause increased urination DC gabapentin : caused b/l lower limb edema even at 100mg c/o urinary frequency for months, however reports strong flow, and denies any dribbling or difficulty urinating; no dysuria; hx of dark urine but now reported as fully resolved; r/o Kenneth; pt reports hx of kidneys stones and renal cysts I spent minutes with the patient and/or on the patient floor today, greater than?50% of which was spent counseling/coordinating care. Patient educated on: medication risk/benefits Informed Consent: further education needed Reason for contiued inpatient stay Substantial Risk for: rapid decompensation
[2021-03-27 21:04] VITALS: BP 160/88; PULSE 79; RESP 18; TEMP 36.5; O2SAT 98
[2021-03-27] MEDS: traZODone HCL 50 MG TABLET 125 MG PO (21:26)
[2021-03-27] MEDS: Mirtazapine 7.5 MG TABLET PO (21:26)
[2021-03-28 06:29] VITALS: BP 131/77; PULSE 75; RESP 16; TEMP 36.8; O2SAT 95
[2021-03-28] MEDS: Acetaminophen 325 MG TABLET 975 MG PO (11:17)
--- NOTE | 2021-04-04 12:51 | PM.PSYDC ---
DS: Providers Provider Date of Service: 03/28/21 Date of admission: 03/15/21 17:48 Date of discharge: 03/28/21 Primary care physician: Yoav Guardado [facility] Attending physician on admission: Yvan Guzman Discharging clinician: Mirian Lang DS: Diagnosis Discharge Diagnosis (1) PTSD (post-traumatic stress disorder): Status: Chronic (2) Major depression, chronic: Status: Acute (3) Neuropathy: Status: Acute DS: Medications Discharge Medications Home Medications: Home Medications Medication Instructions Recorded Confirmed No Known Home Meds 11/10/20 03/15/21 Previous Rx's Medication Instructions Recorded mirtazapine 7.5 mg tablet 7.5 mg PO BEDTIME #30 tab 03/28/21 trazodone 150 mg tablet 150 mg PO BEDTIME #30 tab 03/28/21 Mental Status Exam Mental Status Exam Narrative: Patient Appearance:?Well Grooomed Patient Orientation:?Person and Place Level of Consciousness:?Awake Patient Behavior:?Appropriate Mood Description:?Calm Affect Description:?Calm Speech Pattern:?Clear Hallucinations:?None Delusions:?Not Present Thought Content:?negative for Suicidal Ideation or negative for Homicidal Ideation Depressive Symptoms:?Increased Anxiety Data Imaging Diagnostic Imaging Impressions Head CT 03/14/21 14:15 IMPRESSION: No acute intracranial process seen. Mild straightening of cervical lordosis likely cyst from spasm. Degenerative disc changes with spondylosis C5-C6 and C6-C7 disc levels. There is bilateral narrowing of neural foramina from uncovertebral hypertrophic changes. Cervical Spine CT 03/14/21 14:16 IMPRESSION: No acute intracranial process seen. Mild straightening of cervical lordosis likely cyst from spasm. Degenerative disc changes with spondylosis C5-C6 and C6-C7 disc levels. There is bilateral narrowing of neural foramina from uncovertebral hypertrophic changes. DS: Summary Hospital Course Hospital Course: Pt is a 60 yo male w/ hx of depression, ptsd, spinal stenosis and neuropathy who presents for depressed mood with passive SI. Pt reports that he has been trying to cope with his depression and anxiety since his last admission, but his physical struggles with neuropathy have made this increasingly difficult. Compounding this issue are other pending psychosocial struggles such as dwindling funds and lack of any social support. This past week he developed additional neuropathic symptoms with loss of sensation in left side of body (on 03/14/[address] negative for CVA; 12/23 MRI indicates sever lumbar disc degeneration and cervical spine narrowing) which worsened his depression and triggered increase in suicidal thinking. -patient has passive wish however denies active SI and says he does not think he will however actually kill himself -patient has never tried antidepressant in his life time; he has also never been in therapy until year ago.? Patient has become more accepting that he needs additional help to deal with his symptoms which are debilitating -patient agreed to trial of Prozac 10 mg daily; risks/side effects thoroughly reviewed and patient understands and agrees to trial. -mild nausea from Prozac however patient feels it is tolerable and will continue.? Still anxious but does present as more calm and has been interacting with peers, enjoying group activities.? No SI -a little down but stable and no SI.? Tolerating Prozac 01/20 Patient continues to have passive wish, wishing he would just ; however he continues to deny any active SI, intent or plans and says he would not self-harm; he is future oriented and reports he will continue to try and manage his house-hold and other responsibilities. -he reports he continues to feel depressed and anxious with little to no reported change despite being started on Prozac. Patient also c/o of feeling cognitively foggy which he is wondering if it's due to Prozac (no cognitive deficiency observed).? Patient accepts that it might take more time to see if Prozac 20 mg becomes effective and agrees to stay on it.? The decision to finally try a medication was a for patient a brave one as this is the first time he's agreed to a trial of antidepressant.? But for this same reason and combined with patient's deep anxieties in general and specifically about medications, it is difficult to assess if his reported experiences are actual side effects or if it's a patients anxiety-induced psychosomatic side-effect.? Trousseau Consultant believes patient would be best served by remaining on the unit for continued medication management (of either adding a second anti-depressant or? stopping Prozac and trying a new one) as he remains depressed and with passive wish. He does not have any active SI and is not in imminent risk for harm to self or others, however he has a rapport with inpatient team and it is preferable to see if additional med management could make a difference and hopefully prevent future admissions.? While these changes can also be made as an outpatient, patient's agoraphobia and anxiety issues have been barriers in the past and again it would be best to see if this can be accomplished while on the inpatient unit. 03/24 patient reports he got a good night's sleep after starting mirtazapine 7.5 mg.? He also says he feels less cognitively foggy since Prozac is stopped; technical writer and editor recommends increasing mirtazapine and patient agrees to discuss with covering provider about increase Throughout patient's admission, he remained with appropriate behaviors and in good behavioral and impulse control; he attended groups and was forthcoming during interview sessions. Patient's depression and anxiety were minimally improved however he continued to deny any SI, intent or plans and for the 1st time is trying medication to help treat his anxiety depression. Patient is currently tolerating mirtazapine and at this point patient needs time for this med to be further titrated and to see if it can be effective. Patient wants to remain on the unit for this to happen however he understands that it is not necessary and agrees to follow-up with his outpatient provider and assess this medication over time. He is not in imminent risk for harm to self or others and he is appropriate to continue treatment as an outpatient. Patient has limited coping skills and a long history of untreated severe anxiety; he also has a long history of being passive about treatment and dependent personality traits, all of which Are unlikely to quickly resolve. Thus It is likely that patient will remain at risk for continued struggles and to at some point decompensate again. However these are issues that he has coped with for decades while living on his own in the community and do not require him to be on a locked inpatient unit to treat. Patient is appropriate for discharge. Time spent discussing smoking cessation with patient: 3 to 10 minutes Status at Discharge Functional status at discharge: independent ambulation Overall status at discharge: patient is back to baseline Time Spent with Patient Time attestation: Total time spent providing and/or coordinating discharge services: Time spent: Less than 30 minutes Discharge Plan Discharge Patient Disposition: Home, Self-Care Discharge Diagnosis: MDD, recurrent, moderate Referrals: [facility] [Other] - 03/29/21 12:00 pm (Outpatient tele-health appointment with Therapist You need to attend appointment with therapist to have medication management services) [facility] [Other] - 04/21/21 10:30 am (Outpatient psychiatric medication initial evaluation Appointment by tele-health ) [facility] [Other] - 05/19/21 10:00 am (Medication management appointment with psychiatric medication provider Appointment by tele-health) [facility] [Other] - 1 Week ([facility] Referral) Yoav Guardado, [facility] [Primary Care Provider] - 04/11/21 8:00 am (IN OFFICE) Discharge Medications: New mirtazapine 7.5 mg Tablet 7.5 mg PO BEDTIME Qty: 30 0RF No Action trazodone 150 mg tablet 150 mg PO BEDTIME 0RF Discharge Orders: Discharge Order (Routine); Ordered 03/28/21 Ordered By: Mirian Lang Diet: regular diet Activity on Discharge: As tolerated Stand Alone Forms: Patient Portal Discharge page, Community Support Care Plan Goals: 1. Maintain mood 2. No SI/HI 3. No signs of aggression towards self or others Health Concerns: Follow up with PCP Plan of Treatment: 1. Take medications as prescribed. 2. Go to nearest ED or call 911 in event of emergency. Assessment: Pt is brighter, non labile. He reports less depressed mood. No SI/HI. Future oriented. No signs of aggression towards self or others. Discharge Date/Time: 03/28/21 15:02
== END 2021-03-28 15:02 | disposition home or self-care (01) | DRG 754 ==
LOC: HO.ED 22:16 → HO.PM5 03-15 18:03
PROVIDERS: Psychiatry & Neurology Psychiatry; Admitting Provider Psychiatry & Neurology Psychiatry; Emergency Provider Internal Medicine; PCP Nurse Practitioner Family; Visit Provider Psychiatry & Neurology Psychiatry
DX: F32.9 Major depressive disorder, single episode, unspecified (principal); R45.851 Suicidal ideations; F17.210 Nicotine dependence, cigarettes, uncomplicated; F43.10 Post-traumatic stress disorder, unspecified; I25.10 Atherosclerotic heart disease of native coronary artery without angina pectoris; Z71.6 Tobacco abuse counseling; G62.9 Polyneuropathy, unspecified; M48.061 Spinal stenosis, lumbar region without neurogenic claudication; M51.36 Other intervertebral disc degeneration, lumbar region; Z87.442 Personal history of urinary calculi; Z20.822 Contact with and (suspected) exposure to COVID-19; Z79.899 Other long term (current) drug therapy
CPT/HCPCS: 0241U; 70450; 72125; 80053; 80307; 81001; 83735; 85025; 87635; 93005; 99285

== ENCOUNTER 2021-04-05 15:08 | Emergency (ER) | payer OTHER, SELFPAY ==
[2021-04-05 15:21] VITALS: BP 163/93; PULSE 65; O2SAT 100
[2021-04-05 15:23] VITALS: BP 155/85; PULSE 69; RESP 18; TEMP 36.8; O2SAT 98; BMI 21.9
[2021-04-05 15:47] LABS: MANUAL DIFF FLAG NO
[2021-04-05 15:53] LABS: Basophils Percent Auto 0.5 % (0-2); Eosinophils Percent Auto 0.6 % (0-4); Hematocrit 43.8 % (42.0-52.0); Hemoglobin 14.3 g/dl (14.0-18.0); Imm Gran Abs Auto 0.02 X10*3/uL (0.00-0.03); Imm Gran Pct Auto 0.3 % (0.0-0.4); Lymphocytes Absolute Auto 1.6 X10*3/uL (1.2-4.9); Lymphocytes Percent Auto 25.8 % (20-40); Mean Corpuscular HGB Conc 32.6 g/dl (31.0-36.0); Mean Corpuscular Hemoglobin 31.6 pg (27.0-33.0); Mean Corpuscular Volume 96.7 fL (80.0-98.0); Mean Platelet Volume 9.4 fL (9.4-12.4); Monocytes Absolute Auto 0.4 X10*3/uL (0.1-1.2); Monocytes Percent Auto 6.5 % (2-11); Neutrophils Absolute Auto 4.2 x10*3/uL (2.0-8.3); Neutrophils Percent Auto 66.3 % (45-73); Platelet Count 323 X10*3/uL (160-400); Red Blood Count 4.53 X10*6/uL (4.60-5.80); Red Cell Distribution Width 13.1 % (11.0-16.0); White Blood Count 6.3 X10*3/uL (4.8-10.8)
[2021-04-05 16:04] LABS: Amphetamine Screen Urine Not Detected (Not Detect); Barbiturates, Urine Not Detected (Not Detect); Benzodiazepines Screen Urine Not Detected (Not Detect); Cannabinoid Screen Urine Not Detected (Not Detect); Cocaine Screen Urine Not Detected (Not Detect); Fentanyl, urine Not Detected (Not Detect); Opiate Screen Urine Not Detected (Not Detect); Phencyclidine Screen Urine Not Detected (Not Detect)
[2021-04-05 16:05] LABS: Alanine Aminotransferase 12 U/L (0-40); Albumin Level 4.6 g/dL (3.5-5.0); Alkaline Phosphatase 62 U/L (39-117); Anion Gap 10 (12-20); Aspartate Amino Transferase 13 U/L (5-37); Bilirubin Total 0.7 mg/dL (0.0-1.0); Blood Urea Nitrogen 8 mg/dL (9-16); COVID-19 Test Negative (Negative); Calcium 9.5 mg/dL (8.4-10.2); Carbon Dioxide 30 mmol/L (22-29); Chloride 104 mmol/L (96-108); Creatinine Clr Calc Pharmacy 71.8; Estimated Glomerular Filt Rate > 60; Glucose Random 89 mg/dL (60-115); Potassium 4.1 mmol/L (3.3-5.1); Sodium 140 mmol/L (135-145); Total Protein 7.1 g/dL (6.5-8.0)
--- NOTE | 2021-04-05 16:36 | ED_ITS ---
HPI - Psych General Chief Complaint: Psychiatric Symptoms Stated Complaint: failure to thrive Time Seen by Provider: 04/05/21 16:05 Source: patient and EMS Mode of arrival: EMS Limitations: no limitations History of Present Illness HPI Narrative: 60 y/o male with history of agoraphobia, PTSD, chronic depression, SI, neuropathy with parestheias who presents to the ER with worsening depression and suicidal thoughts. He was recently admitted to 03/16/21 - 03/28/21 for major depression. He states when he got home he did not have enough money to get his prescriptions so he did not take them for 1 day. He has been compliant with his meds since then. He reports since he got home he has been sleeping a lot more a nd not taking care of himself. Today was the 1st time he showered since being home. He has been talking to his therapist about half of him being a little boy and he's been scared for the little boy lately. He does not know who will take care of the boy if he dies. He denies any auditory or visual hallucinations. MD complaint: feels depressed and anxiety Onset (ago): week(s) Duration: constant History of same: Yes Relieving factors: none Exacerbating factors: none Associated psychiatric symptoms: none Associated symptoms: denies other symptoms Treatments prior to arrival: none If self harm: admits thoughts of self harm Related Data Home Medications Medication Instructions Recorded Confirmed trazodone 150 mg tablet 150 mg PO BEDTIME 04/05/21 04/05/21 Previous Rx's Medication Instructions Recorded mirtazapine 7.5 mg tablet 7.5 mg PO BEDTIME #30 tab 03/28/21 Allergies Allergy/AdvReac Type Severity Reaction Status Date / Time gabapentin AdvReac Swelling Verified 04/05/21 15:21 Review of Systems Verdana 4l Review of Systems: Verdana 4d Verdana 4d Constitutional: No Fever, No Chills ENT/Mouth: No sore throat, No Rhinorrhea, No Swallowing Difficulty Cardiovascular: No Chest Pain, No SOB, No Orthopnea, No Edema Respiratory: No Cough, No Sputum, No Wheezing, No dyspnea GastrointestinalGastrointestinal: No Nausea, No Vomiting, No Diarrhea, No abdominal Pain Musculoskeletal: + joint pain, No Myalgias Skin: No Skin Lesions, No rash Neuro: No Weakness, + Numbness, No Dizziness, No Headache Psych: + Anxiety/Panic, + Depression, +SI, No AH/VH Heme/Lymph: No Bruising, No Lymphadenopathy Endocrine: No Polyuria, No Polydipsia [facility] Past Medical History Medical History (Updated 04/05/21 @ 20:03 by AMANDA Fong) Agoraphobia CAD (coronary artery disease) Kidney stone Neuropathy Physical exam PTSD (post-traumatic stress disorder) Surgical History No pertinent past surgical history Family History Family History Father Unknown family medical history Mother Unknown family medical history Social History Social History Household Members: None Housing: House Do you presently have visiting nurse or other home services: No Unable to assess alcohol history related to: Unknown Alcohol intake: never Patient Tobacco Use Status: Current everyday Tobacco user Tobacco use type: Cigarette Cigarette Packs Per Day: 1 Cigarettes Per Day: 2 Years Smoked: 50 e-Cigarette/Vaping Use: Never Used Second Hand Smoke Exposure: Yes Advance Directives: No Advance Directives Information Provided: No service: No Sexual orientation: Straight/Heterosexual Physical Exam Verdana 4l Vital Signs: Verdana 4d Verdana 4d Vital Signs: Verdana 4d Verdana 4Bd Last Vital Signs Verdana 4d Pbx Operator New 4d Pbx Operator New 4d Temp 98.3 F 04/05/21 15:23 Pbx Operator New 4d Pulse 69 04/05/21 15:23 Pbx Operator New 4d Resp 18 04/05/21 15:23 BP 155/85 H 04/05/21 15:23 Pulse Ox 98 04/05/21 15:23 BMI result Body Mass Index 21.9 Appearance: Alert. Oriented X3. No acute distress. Eyes: Pupils equal, round and reactive to light. ENT: Pharynx normal. Neck: Normal inspection. Neck supple. CVS: Normal heart rate and rhythm. Pulses normal. Respiratory: No respiratory distress. Breath sounds normal. Abdomen: Soft and nontender. +BS x4 Skin: Skin warm and dry. Normal skin color. Normal skin turgor. No rashes. Extremities: No lower extremity edema. Neuro/psych: Oriented X 3. No motor deficit. No sensory deficit. CN II-XII intact. makes appropriate eye contact, good insight and judgement, anxious and tearful at times talking about dissociating. denies hallucinations. +vague suicidality Course Course Course Narrative: 60-year-old male with a history of depression, PTSD, agoraphobia, suicidal ideation, reporting disorder, neuropathy, hypertension who presents to the ER with worsening depressive symptoms and ?wanting to . ? He was recently admitted to and reports since being discharged home he has been having worsening symptoms. He is sleeping until noon every day and not taking care of himself at home. He states the 1st time he showered was today in a week. He has been compliant with his Remeron and trazodone. He does not feel like the meds are working. He spoke with his therapist day after discharge and has been compliant with this. Will get medical workup for clearance and have crisis team evaluate him. He feels like he needs to be admitted again. Reevaluation(s) Reevaluation #1: Medical workup is unremarkable. Physician observation started at 18:04. Patient placed in physician observation because patient is awaiting [facility] evaluation for the possible need of inpatient psych admission. At the time observation was started patient's vital signs were stable. Patient is alert and oriented. Neuro exam is non-focal. CV: RRR and lungs are clear. Will continue to monitor. [facility] - Psych Lab Data Result diagrams: 04/05/21 15:40 04/05/21 15:40 Labs: Lab Results 04/05/21 04/05/21 04/05/21 Range/Units 15:40 15:40 15:40 WBC 6.3 (4.8-10.8) X10*3/uL RBC 4.53 L (4.60-5.80) X10*6/uL Hgb 14.3 (14.0-18.0) g/dl Hct 43.8 (42.0-52.0) % MCV 96.7 (80.0-98.0) fL MCH 31.6 (27.0-33.0) pg MCHC 32.6 (31.0-36.0) g/dl RDW 13.1 (11.0-16.0) % Plt Count 323 D (160-400) X10*3/uL MPV 9.4 (9.4-12.4) fL Immature Gran % (Auto) 0.3 (0.0-0.4) % Neut % (Auto) 66.3 (45-73) % Lymph % (Auto) 25.8 (20-40) % [place] % (Auto) 6.5 (2-11) % Eos % (Auto) 0.6 (0-4) % Baso % (Auto) 0.5 (0-2) % Lymph # (Auto) 1.6 (1.2-4.9) X10*3/uL [place] # (Auto) 0.4 (0.1-1.2) X10*3/uL Eos # (Auto) 0.0 (0.0-0.4) X10*3/uL Baso # (Auto) 0.0 (0.0-0.2) X10*3/uL Abs Immat Gran (auto) 0.02 (0.00-0.03) X10*3/uL Absolute Neuts (auto) 4.2 (2.0-8.3) x10*3/uL Absolute Nucleated RBC 0.000 (0.0-0.012) X10*3/uL Nucleated RBC % (auto) 0.0 (0.0-0.2) /100WBC Sodium 140 (135-145) mmol/L Potassium 4.1 (3.3-5.1) mmol/L Chloride 104 (96-108) mmol/L Carbon Dioxide 30 H (22-29) mmol/L Anion Gap 10 L (12-20) BUN 8 L D (9-16) mg/dL Creatinine 0.97 (0.5-1.4) mg/dL Estim Creat Clear Calc 71.8 Estimated GFR > 60 Random Glucose 89 (60-115) mg/dL Calcium 9.5 (8.4-10.2) mg/dL Total Bilirubin 0.7 (0.0-1.0) mg/dL AST 13 (5-37) U/L ALT 12 (0-40) U/L Alkaline Phosphatase 62 (39-117) U/L Total Protein 7.1 (6.5-8.0) g/dL Albumin 4.6 (3.5-5.0) g/dL Urine Opiates Screen (Not Detect) Urine Fentanyl Screen (Not Detect) Ur Barbiturates Screen (Not Detect) Ur Phencyclidine Scrn (Not Detect) Ur Amphetamines Screen (Not Detect) U Benzodiazepines Scrn (Not Detect) Urine Cocaine Screen (Not Detect) U Marijuana (THC) Screen (Not Detect) COVID-19 ([facility]) Negative (Negative) COVID-19 Clin Com See Note 04/05/21 Range/Units 15:42 WBC (4.8-10.8) X10*3/uL RBC (4.60-5.80) X10*6/uL Hgb (14.0-18.0) g/dl Hct (42.0-52.0) % MCV (80.0-98.0) fL MCH (27.0-33.0) pg MCHC (31.0-36.0) g/dl RDW (11.0-16.0) % Plt Count (160-400) X10*3/uL MPV (9.4-12.4) fL Immature Gran % (Auto) (0.0-0.4) % Neut % (Auto) (45-73) % Lymph % (Auto) (20-40) % [place] % (Auto) (2-11) % Eos % (Auto) (0-4) % Baso % (Auto) (0-2) % Lymph # (Auto) (1.2-4.9) X10*3/uL [place] # (Auto) (0.1-1.2) X10*3/uL Eos # (Auto) (0.0-0.4) X10*3/uL Baso # (Auto) (0.0-0.2) X10*3/uL Abs Immat Gran (auto) (0.00-0.03) X10*3/uL Absolute Neuts (auto) (2.0-8.3) x10*3/uL Absolute Nucleated RBC (0.0-0.012) X10*3/uL Nucleated RBC % (auto) (0.0-0.2) /100WBC Sodium (135-145) mmol/L Potassium (3.3-5.1) mmol/L Chloride (96-108) mmol/L Carbon Dioxide (22-29) mmol/L Anion Gap (12-20) BUN (9-16) mg/dL Creatinine (0.5-1.4) mg/dL Estim Creat Clear Calc Estimated GFR Random Glucose (60-115) mg/dL Calcium (8.4-10.2) mg/dL Total Bilirubin (0.0-1.0) mg/dL AST (5-37) U/L ALT (0-40) U/L Alkaline Phosphatase (39-117) U/L Total Protein (6.5-8.0) g/dL Albumin (3.5-5.0) g/dL Urine Opiates Screen Not Detected (Not Detect) Urine Fentanyl Screen Not Detected (Not Detect) Ur Barbiturates Screen Not Detected (Not Detect) Ur Phencyclidine Scrn Not Detected (Not Detect) Ur Amphetamines Screen Not Detected (Not Detect) U Benzodiazepines Scrn Not Detected (Not Detect) Urine Cocaine Screen Not Detected (Not Detect) U Marijuana (THC) Screen Not Detected (Not Detect) COVID-19 ([facility]) (Negative) COVID-19 Clin Com Discharge Plan Discharge Clinical Impression: Depression Patient Disposition: Still a Patient Prescriptions: No Action mirtazapine 7.5 mg Tablet 7.5 mg PO BEDTIME Qty: 30 0RF trazodone 150 mg tablet 150 mg PO BEDTIME 0RF
[2021-04-05 20:09] VITALS: BP 130/80; PULSE 65; TEMP 36.6; O2SAT 98
[2021-04-05] MEDS: traZODone HCL 50 MG TABLET 150 MG PO (20:38)
[2021-04-05] MEDS: Mirtazapine 7.5 MG TABLET PO (20:38)
[2021-04-05 23:46] VITALS: BP 117/73; PULSE 76; RESP 16; TEMP 37.6; O2SAT 97
--- NOTE | 2021-04-06 05:47 | PC.NURSE ---
Patient slept through the night, no distress observed/reported, care team assessed the patient, disposition pending psych consult, psych consult ordered/confirmed by M5, behavior appropriate, medication compliant, VSS, will continue to monitor.
--- NOTE | 2021-04-06 06:58 | PC.NURSE ---
patient appears to remain asleep respirations are even and unalbored patient appears in no distress
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
== END 2021-04-06 15:02 | disposition home or self-care (01) ==
PROVIDERS: Emergency Provider Emergency Medicine; PCP Nurse Practitioner Family
DX: F32.A Depression, unspecified (principal); Z20.822 Contact with and (suspected) exposure to COVID-19; R45.851 Suicidal ideations; F41.9 Anxiety disorder, unspecified; F40.00 Agoraphobia, unspecified; F43.10 Post-traumatic stress disorder, unspecified; F17.200 Nicotine dependence, unspecified, uncomplicated; Z79.899 Other long term (current) drug therapy
CPT/HCPCS: 80053; 80307; 85025; 87635; 99284

== ENCOUNTER 2021-05-26 12:39 | Outpatient (REF) | payer OTHER, SELFPAY ==
[2021-05-26 13:43] LABS: Urine Cytology See Pathology rpt
[2021-05-26 13:45] LABS: MANUAL DIFF FLAG NO
[2021-05-26 13:51] LABS: Basophils Percent Auto 0.5 % (0-2); Eosinophils Percent Auto 0.3 % (0-4); Hematocrit 44.5 % (42.0-52.0); Hemoglobin 14.4 g/dl (14.0-18.0); Imm Gran Abs Auto 0.02 X10*3/uL (0.00-0.03); Imm Gran Pct Auto 0.3 % (0.0-0.4); Lymphocytes Absolute Auto 1.8 X10*3/uL (1.2-4.9); Lymphocytes Percent Auto 29.1 % (20-40); Mean Corpuscular HGB Conc 32.4 g/dl (31.0-36.0); Mean Corpuscular Hemoglobin 31.1 pg (27.0-33.0); Mean Corpuscular Volume 96.1 fL (80.0-98.0); Monocytes Absolute Auto 0.3 X10*3/uL (0.1-1.2); Monocytes Percent Auto 5.4 % (2-11); Neutrophils Absolute Auto 3.9 x10*3/uL (2.0-8.3); Neutrophils Percent Auto 64.4 % (45-73); Platelet Count 263 X10*3/uL (160-400); Red Blood Count 4.63 X10*6/uL (4.60-5.80); Red Cell Distribution Width 12.8 % (11.0-16.0); White Blood Count 6.1 X10*3/uL (4.8-10.8)
[2021-05-26 13:53] LABS: Appearance Urine CLEAR; Color Urine YELLOW; Glucose Urine UA NEG (NEG); Leukocyte Esterase Urine NEG (NEG); Nitrite Urine NEG (NEG); PH 5.5 (5.0-8.0); Specific Gravity - Urine 1.025 (1.005-1.025); Urine Blood 1+ (NEG); Urine Ketones NEG (NEG); Urine Protein NEG (NEG-TRACE)
[2021-05-26 14:02] LABS: RBC Urine 0-2 /HPF (0); WBC Urine 0 /HPF (0-4)
[2021-05-26 14:13] LABS: Alanine Aminotransferase 15 U/L (0-40); Albumin Level 4.5 g/dL (3.5-5.0); Alkaline Phosphatase 59 U/L (39-117); Anion Gap 13 (12-20); Aspartate Amino Transferase 16 U/L (5-37); Bilirubin Total 0.6 mg/dL (0.0-1.0); Blood Urea Nitrogen 17 mg/dL (9-16); Calcium 9.5 mg/dL (8.4-10.2); Carbon Dioxide 26 mmol/L (22-29); Chloride 104 mmol/L (96-108); Estimated Glomerular Filt Rate > 60; Glucose Random 95 mg/dL (60-115); Potassium 4.1 mmol/L (3.3-5.1); Sodium 139 mmol/L (135-145); Total Protein 6.9 g/dL (6.5-8.0)
[2021-05-26 14:35] LABS: Prostate Specific Antigen Scr 0.33 ng/mL (<0.05-4.0)
== END 2021-05-26 12:40 | disposition home or self-care (01) ==
LOC: HO.HMGCLDS 12:39
PROVIDERS: PCP Nurse Practitioner Family; Visit Provider Nurse Practitioner Family
DX: I10 Essential (primary) hypertension (principal); R31.29 Other microscopic hematuria; Z12.5 Encounter for screening for malignant neoplasm of prostate
CPT/HCPCS: 36415; 80053; 81001; 84153; 85025; 87086; 88112

== ENCOUNTER 2021-06-16 11:13 | Outpatient (REF) | payer OTHER, SELFPAY ==
--- NOTE | ~2021-06-16 | US_ITS ---
EXAMINATION: US RETROPERITONEAL LIMITED (RENAL ONLY) CLINICAL INFORMATION: Other microscopic hematuria. COMPARISON: CT abdomen and pelvis without contrast dated 01/26/2010. Ultrasound urinary bladder dated 01/04/2009. Bilateral renal ultrasound dated 01/04/2009. TECHNIQUE: Real-time imaging of the kidneys. FINDINGS: RIGHT KIDNEY: 10.2 x 5.7 x 5.8 cm (SAG x AP x TRV). The kidney is normal in size, contour, and echogenicity. Renal cortical thickness is normal. No renal calculi or hydronephrosis. There is a simple appearing cyst in the mid polar region, measuring up to 1.8 cm. There is an additional simple appearing cyst in the mid polar region measuring up to 1.3 cm. LEFT KIDNEY: 11.7 x 5.0 x 5.7 cm (SAG x AP x TRV). The kidney is normal in size, contour, and echogenicity. Renal cortical thickness is normal. No renal calculi or hydronephrosis. There are multiple mostly simple appearing cysts in the left kidney. The largest measures up to 6.5 cm in the mid polar region. There is a mildly complex cyst with a single thin septation versus 2 adjacent cysts in the lower pole that measures up to 3.2 cm. US/US renal BI IMPRESSION: Bilateral renal cysts as above described, mostly simple in appearance. There is a mildly complex cyst with a single thin septation versus 2 adjacent cysts in the lower pole that measure up to 3.2 cm, likely benign. No follow-up is necessary for these findings. No hydronephrosis or renal calculi.
== END 2021-06-16 11:14 | disposition home or self-care (01) ==
LOC: HO.HMGCX 11:13
PROVIDERS: Absent Provider Urology; PCP Nurse Practitioner Family; Visit Provider Nurse Practitioner Family
DX: R31.29 Other microscopic hematuria (principal)
CPT/HCPCS: 76775

== ENCOUNTER → 2021-08-11 09:14 | Outpatient (BNVA) | payer OTHER, SELFPAY | PROVIDERS: PCP Nurse Practitioner Family; Visit Provider Urology | DX: N32.0 Bladder-neck obstruction (principal) | CPT/HCPCS: 51798; 99212 ==

== ENCOUNTER 2021-09-20 09:34 | Outpatient (REF) | payer OTHER, SELFPAY ==
--- NOTE | ~2021-09-20 | US_ITS ---
EXAMINATION: US PELVIS LIMITED (BLADDER) CLINICAL INFORMATION: Poor urinary stream. COMPARISON: Bilateral renal ultrasound dated 06/16/2021 and 01/04/2009. CT abdomen and pelvis without contrast dated 01/26/2010. TECHNIQUE: Real-time imaging of the bladder. FINDINGS: BLADDER: Adequately distended with trabeculated wall and nonspecific intraluminal floating debris. Prevoid bladder volume is 167 mL. Postvoid bladder volume is 17.3 mL. Enlarged prostate measuring 3.4 x 3.8 x 3.9 cm, volume 26.5 mL. US/US bladder IMPRESSION: Nonspecific floating debris in the lumen of the bladder, correlate with urinalysis. Trabeculated solomon in the setting of enlarged prostate favored to represent sequela of chronic outlet obstruction. Mildly increased post void bladder volume.
== END 2021-09-20 09:35 | disposition home or self-care (01) ==
LOC: HO.HMGCX 09:34
PROVIDERS: Visit Provider Urology
DX: N32.0 Bladder-neck obstruction (principal); R39.12 Poor urinary stream
CPT/HCPCS: 76857

== ENCOUNTER 2021-11-07 10:06 | Emergency (ER) | payer OTHER, SELFPAY ==
[2021-11-07 10:10] VITALS: BP 155/104; PULSE 77; RESP 18; TEMP 36.7; O2SAT 99; BMI 19.5
--- NOTE | 2021-11-07 10:58 | ED.MALEGU ---
HPI - Male Genitourinary General Chief complaint: Urogenital-Male Stated complaint: Bleeding testicle Time Seen by Provider: 11/07/21 10:39 Source: patient Mode of arrival: ambulatory Limitations: no limitations History of Present Illness HPI Narrative: Patient presents emergency department for evaluation of bleeding from the left side of his scrotum. States that this morning after using the bathroom he noticed a black spot which he wiped away and then it began bleeding. The bleeding has overall. Since arrival to the emergency department. Denies any injury to the scrotum, denies pain or swelling. Additionally, he is requesting to speak to someone from the care team, he states that he has been having increased stressors lately, not currently taking any medications, he is trying to get on disability, bleeds he may need to hire a senior executive compensation analyst for this. At this time he denies suicidal or homicidal ideations. However he makes vague futuristic thoughts about potential SI if he is unable to get on disability and runs out of money. He is currently actively involved with the therapist that he sees every 2 weeks. Related Data Home Medications Medication Instructions Recorded Confirmed No Known Home Meds 05/26/21 08/31/21 Allergies Allergy/AdvReac Type Severity Reaction Status Date / Time gabapentin AdvReac Swelling Verified 08/31/21 12:22 Review of Systems Review of Systems: Constitutional: No weight loss, fever, chills, weakness or fatigue. Skin: No rash or itching. Cardiovascular: No chest pain, chest pressure or chest discomfort. No palpitations or pedal edema. Respiratory: No shortness of breath, cough or sputum production. Gastrointestinal: No anorexia, nausea, vomiting or diarrhea. No abdominal pain or blood in stool. Genitourinary: No burning micturition. No urinary frequency or incontinence. positive Scrotal bleeding Musculoskeletal: No muscle pain, back pain, joint pain or stiffness. Psychiatric: positive depression or anxiety. denies suicidal ideations, denies homicidal ideation Yes all other systems are reviewed and are negative [facility] Past Medical History Attestation statement: The following information was validated with the patient. Source: old records reviewed Medical History Agoraphobia CAD (coronary artery disease) Kidney stone Neuropathy Physical exam PTSD (post-traumatic stress disorder) Surgical History No pertinent past surgical history Family History Family History Father Unknown family medical history Mother Unknown family medical history Social History Social History Household Members: None Housing: House Do you presently have visiting nurse or other home services: No Unable to assess alcohol history related to: Unknown Alcohol intake: never Patient Tobacco Use Status: Current everyday Tobacco user Tobacco use type: Cigarette Cigarettes Per Day: 4 Years Smoked: 50 e-Cigarette/Vaping Use: Never Used Second Hand Smoke Exposure: Yes Advance Directives: No Advance Directives Information Provided: No service: No Current occupational status: disabled Sexual orientation: Straight/Heterosexual Cognitive needs: No Hearing needs: No Vision needs: No Physical Exam Vital Signs: Vital Signs: Last Vital Signs Temp 98.1 F 11/07/21 10:10 Pulse 77 11/07/21 10:10 Resp 18 11/07/21 10:10 BP 155/104 H 11/07/21 10:10 Pulse Ox 99 11/07/21 10:10 O2 Del Method 11/07/21 10:10 BMI result Body Mass Index 19.5 Appearance: Alert.?Oriented to person, place and time. No acute distress.?Normal affect. Eyes: Pupils equal, round and reactive to light.? ENT: Pharynx normal.?? Neck: Normal inspection.? Neck supple.?? CVS: Heart sounds normal. Normal heart rate and rhythm.? Pulses normal.?? Respiratory: No respiratory distress.? Lung sounds clear to auscultation bilaterally?? Abdomen: Soft and non-tender. genitourinary: Credentialing Specialist Kecia Velasquez MD, non active bleeding varicosity to left scrotum Skin: Skin warm and dry.? Normal skin color.? Extremities: No lower extremity edema.? Neuro: Moves all extremities spontaneously. Sensation intact bilaterally. no motor deficits. Ambulates with normal steady gait. Course Course Course Narrative: patient is a 61-year-old male with a past medical history of depression, PTSD, agoraphobia, hypertension presents emergency department for evaluation of scrotal bleeding. Physical exam consistent with a varicosity common no active bleeding, applied silver nitrate to the area to cauterize and prevent further bleeding, advised not to touch the area as this may cause rebleed. Reviewed worrisome signs and symptoms to return back to the emergency department for. Patient is a additionally reporting increased stressors in life, with depression and anxiety. Requesting to speak with the care team, however denying active suicidal or homicidal ideations. He is interested in seeking additional resources to help manage his stress, although he is currently active with the therapist that he sees every 2 weeks, not currently taking any prescription medications for his mental health. Reevaluation(s) Reevaluation #1: Patient was evaluated by care team, he currently has a therapist, has refused day programs for treatment, and is not willing to take any medications. He states that his therapist has already filed an elder at risk report, and are working to try and assist with in-home services. He is concerned that his house will be deemed as a order house and they will condemn his home and this provides him with a lot of stress. He again continues to decline any active suicidal or homicidal ideations. He states that he would like to be admitted inpatient for patient Psychiatric Services for a few days. Discussed with patient that at this time there would be no indication for inpatient services. Again discussed that he has been offered additional services outpatient but he has declined them. Discussed worrisome signs and symptoms to return back to the emergency department for. All questions answered, and patient was discharged home in stable condition. Time: 14:30 [facility] - Male Genitourinary Medical Records Attestation: I reviewed the patient's medical records. Discharge Plan Discharge Clinical Impression: Scrotal varicose veins, Major depression, chronic Patient Disposition: Home, Self-Care Instructions: Depression in Older Adults (ED) Additional Instructions: As we discussed, avoid touching this area to your scrotum as this may cause it to re-bleed. If you develop return of bleeding, pain, swelling, redness, drainage please have this re-evaluated. Please continue meeting with your therapist, consider more frequent meetings as opposed to every 2 weeks, return to the emergency department with any new or worsening symptoms or concerns including but not limited to severe anxiety, depression, suicidal thoughts, homicidal thoughts. Prescriptions: No Action No Known Home Meds Referrals: Yoav Guardado, RULA-BC [Primary Care Provider] - Interventions: ED Discharge Assessment Last Done: 11/07/21 16:22 Discharge Date/Time: 11/07/21 16:22
[2021-11-07] MEDS: Silver Nitrate Applicator STICK..EA. 1 APPL TOPICAL (11:15)
--- NOTE | 2021-11-07 13:52 | MHC.CARE ---
CARE team arline met with pt who continues to endorse vague SI, no plan and no attempts. Pt reports increased depression and anxiety. He is seeing a therapist at [facility] biweekly. He reports being inpatient on in July 2021 but feeling it was not helpful because he does not want to take psych meds. When asked what he thought would be helpful, he stated he just wanted a friend because he has no friends or family in area. SW discussed referral to day tx program, pt declined. SW also encouraged pt to discuss feelings of depression/anxiety with therapist to increase engagement with her, pt did not think that was a good idea because she wouldn't want to do that. Pt also reports he will be receiving services from [facility] after an elder at risk report was filed due to lack of running water and suspected hoarding in the home. [facility] and he was told they would follow up with additional services- meals on wheels. CARE team arline also filed elder at risk report
--- NOTE | 2021-11-07 14:57 | PC.NURSE ---
WHILE ATTEMPTING TO DISCH PT, PT TEARFUL, STATES HE CAN'T LIVE LIKE HE IS ANYMORE. CARE TEAM WILL RECHECK WITH HIM.
--- NOTE | 2021-11-07 15:15 | PC.NURSE ---
care team in room with patient
--- NOTE | 2021-11-07 16:21 | PC.NURSE ---
per provider pt continues to refuse to discharge, security notified and will escort pt to wr
== END 2021-11-07 16:22 | disposition home or self-care (01) ==
PROVIDERS: Emergency Provider Emergency Medicine; PCP Nurse Practitioner Family
DX: I86.1 Scrotal varices (principal); R45.851 Suicidal ideations; F33.9 Major depressive disorder, recurrent, unspecified; F43.10 Post-traumatic stress disorder, unspecified; F42.3 Hoarding disorder; I10 Essential (primary) hypertension; F41.9 Anxiety disorder, unspecified; F17.210 Nicotine dependence, cigarettes, uncomplicated
CPT/HCPCS: 99282; 99283

== ENCOUNTER 2022-06-16 08:27 | Outpatient (REF) | payer OTHER, SELFPAY ==
[2022-06-16 11:17] LABS: MANUAL DIFF FLAG NO
[2022-06-16 11:57] LABS: Appearance Urine Clear; Color Urine Yellow; Glucose Urine UA Negative (Negative); Leukocyte Esterase Urine Negative (Negative); Nitrite Urine Negative (Negative); UMIC TRIGGER UACC YES; Urine Blood Small (1+) (Negative); Urine Ketones Negative (Negative); Urine Protein Negative (Neg-Trace)
[2022-06-16 11:58] LABS: Basophils Percent Auto 0.6 % (0-2); Eosinophils Absolute Auto 0.1 X10*3/uL (0.0-0.4); Eosinophils Percent Auto 1.3 % (0-4); Hematocrit 44.4 % (42.0-52.0); Hemoglobin 14.3 g/dl (14.0-18.0); Imm Gran Abs Auto 0.01 X10*3/uL (0.00-0.03); Imm Gran Pct Auto 0.2 % (0.0-0.4); Lymphocytes Absolute Auto 1.3 X10*3/uL (1.2-4.9); Lymphocytes Percent Auto 26.9 % (20-40); Mean Corpuscular HGB Conc 32.2 g/dl (31.0-36.0); Mean Corpuscular Hemoglobin 31.6 pg (27.0-33.0); Mean Platelet Volume 10.5 fL (9.4-12.4); Monocytes Absolute Auto 0.4 X10*3/uL (0.1-1.2); Monocytes Percent Auto 7.5 % (2-11); Neutrophils Percent Auto 63.5 % (45-73); Platelet Count 244 X10*3/uL (160-400); Red Blood Count 4.53 X10*6/uL (4.60-5.80); Red Cell Distribution Width 13.1 % (11.0-16.0); White Blood Count 4.7 X10*3/uL (4.8-10.8)
[2022-06-16 12:21] LABS: Bacteria Urine None Seen (None Seen); Hyaline Casts Urine 0-2 /LPF (0-2); RBC Urine 0-2 /HPF (0-2); Squamous Epithelial Cell Urine 0-2 /HPF (0-2); WBC Urine 0-5 /HPF (0-5)
[2022-06-16 12:32] LABS: Alanine Aminotransferase 10 U/L (0-40); Albumin Level 4.2 g/dL (3.5-5.0); Alkaline Phosphatase 66 U/L (39-117); Anion Gap 12 (12-20); Aspartate Amino Transferase 15 U/L (5-37); Bilirubin Total 0.6 mg/dL (0.0-1.0); Blood Urea Nitrogen 18 mg/dL (9-16); Calcium 8.7 mg/dL (8.4-10.2); Carbon Dioxide 26 mmol/L (22-29); Chloride 107 mmol/L (96-108); Cholesterol 215 mg/dL; Estimated Glomerular Filt Rate > 60; Glucose Fasting 102 mg/dL (60-99); HDL Cholesterol 74 mg/dL; LDL Cholesterol Calculated 133 mg/dl; Potassium 4.4 mmol/L (3.3-5.1); Sodium 141 mmol/L (135-145); Total Protein 6.1 g/dL (6.5-8.0); Triglycerides 41 mg/dL
[2022-06-16 12:36] LABS: Prostate Specific Antigen Scr 0.34 ng/mL (<0.05-4.0); TSH reflex Free T4 2.18 uIU/mL (0.32-4.0)
== END 2022-06-16 08:28 | disposition home or self-care (01) ==
LOC: HO.HMGCLDS 08:27
PROVIDERS: PCP Nurse Practitioner Family; Visit Provider Nurse Practitioner Family
DX: Z12.5 Encounter for screening for malignant neoplasm of prostate (principal); F32.9 Major depressive disorder, single episode, unspecified; F43.10 Post-traumatic stress disorder, unspecified
CPT/HCPCS: 36415; 80053; 80061; 81001; 84153; 84443; 85025

== ENCOUNTER 2022-08-11 10:02 | Outpatient (REF) | payer OTHER, SELFPAY ==
[2022-08-11 16:59] LABS: Urine Cytology See Pathology rpt
== END 2022-08-11 10:03 | disposition home or self-care (01) ==
LOC: HO.LAB 10:02
PROVIDERS: PCP Nurse Practitioner Family; Visit Provider Urology
DX: N32.0 Bladder-neck obstruction (principal); R31.29 Other microscopic hematuria
CPT/HCPCS: 51798; 88112; 99212

== ENCOUNTER 2022-10-16 09:15 | Outpatient (AMB) | payer OTHER, SELFPAY ==
--- NOTE | 2022-10-16 09:40 | A.OFFPC_ITS ---
Vital Signs 10/16/22 09:41 Height 5 ft 7 in Weight 137 lb 8 oz BMI 21.5 BP 142/84 H Blood Pressure Location Lt brachial Position Sitting Pulse 59 Pulse Source Pulse Oximeter Pulse Oximetry (%) 100 Oxygen Delivery Method Room Air Intake Visit Reasons: 4-5 month Follow Up Allergies gabapentin Adverse Reaction (Verified 10/16/22 11:48) Swelling Medication List - Last Reconciled 10/16/22 by RILEY Hernandez No Known Home Meds Tobacco use date assessed: 10/16/22 Dental Screening Dental Screen Date: 10/16/22 Did you have a dental visit in the last 12 months?: No Was dental information given to patient?: Patient declined HPI 4-5 month Follow Up HPI Details HTN: Blood pressure is elevated. Refuses meds right now. Denies any CP, SOB, dizziness, blurred vision, or HERNANDEZ. Hx of b12 deficiency, will recheck. [facility] Medical History Agoraphobia CAD (coronary artery disease) Kidney stone Neuropathy Physical exam PTSD (post-traumatic stress disorder) Surgical History No pertinent past surgical history Family History Father Unknown family medical history Mother Unknown family medical history Social History Household Members: None Housing: House Do you presently have visiting nurse or other home services: No Unable to assess alcohol history related to: Unknown Alcohol intake: never Patient Tobacco Use Status: Current everyday Tobacco user Tobacco use type: Cigarette Cigarettes Per Day: 8 Years Smoked: 50 e-Cigarette/Vaping Use: Never Used Second Hand Smoke Exposure: Yes service: No Current occupational status: disabled Sexual orientation: Straight/Heterosexual Cognitive needs: No Hearing needs: No Vision needs: No Questionnaire Thrive Questionnaire Date Thrive assessed: 06/15/22 GRAHAM-7 AMB Questionnaire GRAHAM-7 Date GRAHAM - 7 assessed: 06/15/22 Source: Developed by Drs. Jules Mcmahon, Zunilda Reed, Sergio Luther and colleagues, with an educational joanne from [employer]. Review of Systems Const Reports as per HPI Physical exam (Primary Care) Vital Signs: Last Vital Signs Pulse 59 10/16/22 09:41 BP 142/84 H 10/16/22 09:41 Pulse Ox 100 10/16/22 09:41 Oxygen Delivery Method Room Air 10/16/22 09:41 BMI result Body Mass Index 21.5 Tobacco/Smoking Status: Tobacco use Status Tobacco use date assessed 10/16/22 10/16/22 09:46 Patient Tobacco Use Status Current everyday Tobacco 10/16/22 09:41 Tobacco use type Cigarette 10/16/22 09:41 e-Cigarette/Vaping Use Never Used 10/16/22 09:41 Thrive Assessment: Date of Thrive Assessment Date Thrive assessed 06/15/22 10/16/22 09:41 Const General: cooperative Orientation/consciousness: patient oriented x3 Resp Effort & Inspection: normal respiratory effort Auscultation: clear to auscultation bilaterally Cardio Rate: regular rate Rhythm: regular rhythm Heart sounds: S1 normal heart sound present, S2 normal heart sound present and Murmur heart sound present systolic (faint) Neuro General: patient oriented x3 Motor exam (neuro): 5/5 motor strength present throughout Psych Appearance: grossly normal Mental Status: mental status grossly normal Speech and movement: Normal speech and movement present Affect: normal affect Attitude: cooperative Thought process: Normal thought process present Thought content: Normal thought content present Insight: Good insight present (Psych) Judgement: Good judgement present (Psych) Assessment and Plan Assessment & Plan (1) HTN (hypertension): Code(s): I10 - Essential (primary) hypertension Plan: Labs ordered, refused meds (2) Vitamin B12 deficiency: Code(s): E53.8 - Deficiency of other specified B group vitamins Plan: checking b12 levels Plan The patient agreed to the use of a medical physics professor for this encounter. Scribed for RILEY Rowland by Jonna Cummings medical physics professor, on 10/16/2022 at 09:55 EST. Orders: Orders Comprehensive [place]. Panel Fast Today I10 - Essential (primary) hypertension Lipid Panel Today I10 - Essential (primary) hypertension TSH reflex Free T4 Today I10 - Essential (primary) hypertension Complete Blood Count Auto Diff Today I10 - Essential (primary) hypertension UA CC w/rflx Micro + Cult Today I10 - Essential (primary) hypertension Vitamin B12 and Folate Today E53.8 - Deficiency of other specified B group vitamins Coding Level of Care Code Est Pt Level 3 (54824) Diagnoses HTN (hypertension) I10 Vitamin B12 deficiency E53.8
[2022-10-16 09:41] VITALS: BP 142/84; PULSE 59; O2SAT 100; BMI 21.5
== END 2022-10-16 10:52 | disposition home or self-care (01) ==
PROVIDERS: Visit Provider Nurse Practitioner Family
DX: I10 Essential (primary) hypertension (principal); E53.8 Deficiency of other specified B group vitamins
CPT/HCPCS: 99213

== ENCOUNTER 2022-10-16 10:09 | Outpatient (REF) | payer OTHER, SELFPAY ==
[2022-10-16 13:31] LABS: MANUAL DIFF FLAG NO
[2022-10-16 13:45] LABS: Basophils Percent Auto 0.8 % (0-2); Eosinophils Percent Auto 0.6 % (0-4); Hematocrit 43.3 % (42.0-52.0); Hemoglobin 14.2 g/dl (14.0-18.0); Imm Gran Abs Auto 0.02 X10*3/uL (0.00-0.03); Imm Gran Pct Auto 0.4 % (0.0-0.4); Lymphocytes Absolute Auto 1.1 X10*3/uL (1.2-4.9); Lymphocytes Percent Auto 20.9 % (20-40); Mean Corpuscular HGB Conc 32.8 g/dl (31.0-36.0); Mean Corpuscular Hemoglobin 32.6 pg (27.0-33.0); Mean Corpuscular Volume 99.5 fL (80.0-98.0); Mean Platelet Volume 11.5 fL (9.4-12.4); Monocytes Absolute Auto 0.4 X10*3/uL (0.1-1.2); Monocytes Percent Auto 7.1 % (2-11); Neutrophils Absolute Auto 3.7 x10*3/uL (2.0-8.3); Neutrophils Percent Auto 70.2 % (45-73); Platelet Count 215 X10*3/uL (160-400); Red Blood Count 4.35 X10*6/uL (4.60-5.80); White Blood Count 5.3 X10*3/uL (4.8-10.8)
[2022-10-16 13:53] LABS: Appearance Urine Clear; Color Urine Yellow; Glucose Urine UA Negative (Negative); Leukocyte Esterase Urine Negative (Negative); Nitrite Urine Negative (Negative); PH 6.5 (5.0-9.0); Specific Gravity - Urine 1.015 (1.005-1.025); UMIC TRIGGER UACC YES; Urine Blood Trace (Negative); Urine Ketones Negative (Negative); Urine Protein Negative (Neg-Trace)
[2022-10-16 13:57] LABS: Bacteria Urine None Seen (None Seen); Hyaline Casts Urine 0-2 /LPF (0-2); Squamous Epithelial Cell Urine 0-2 /HPF (0-2); WBC Urine 0-5 /HPF (0-5)
[2022-10-16 14:18] LABS: Alanine Aminotransferase 11 U/L (0-40); Albumin Level 4.1 g/dL (3.5-5.0); Alkaline Phosphatase 62 U/L (39-117); Anion Gap 12 (12-20); Aspartate Amino Transferase 15 U/L (5-37); Bilirubin Total 0.4 mg/dL (0.0-1.0); Blood Urea Nitrogen 11 mg/dL (9-16); Calcium 9.6 mg/dL (8.4-10.2); Carbon Dioxide 29 mmol/L (22-29); Chloride 106 mmol/L (96-108); Cholesterol 189 mg/dL; Estimated Glomerular Filt Rate > 60; Glucose Fasting 93 mg/dL (60-99); HDL Cholesterol 71 mg/dL; LDL Cholesterol Calculated 109 mg/dl; Potassium 4.1 mmol/L (3.3-5.1); Sodium 143 mmol/L (135-145); Total Protein 6.6 g/dL (6.5-8.0); Triglycerides 46 mg/dL
[2022-10-16 14:34] LABS: TSH reflex Free T4 1.58 uIU/mL (0.32-4.0)
[2022-10-16 14:48] LABS: Vitamin B12 < 148 pg/mL (200-900)
[2022-10-22 20:19] LABS: Intrinsic Factor Antibodies Negative (Negative)
[2022-10-25 13:34] LABS: Parietal Cell Antibody <=20.0 Unit (<=20.0)
== END 2022-10-16 10:10 | disposition home or self-care (01) ==
LOC: HO.HMGCLDS 10:09
PROVIDERS: PCP Nurse Practitioner Family; Visit Provider Nurse Practitioner Family
DX: E53.8 Deficiency of other specified B group vitamins (principal); I10 Essential (primary) hypertension
CPT/HCPCS: 36415; 80053; 80061; 81001; 82607; 82746; 83516; 84443; 85025; 86340

== ENCOUNTER 2022-11-02 08:28 | Outpatient (AMB) | payer OTHER, SELFPAY ==
--- NOTE | 2022-11-02 08:31 | AM.OFFWIN_ITS ---
Intake Vital Signs 11/02/22 08:32 Weight 137 lb BP 122/80 Blood Pressure Location Rt brachial Position Sitting Pulse 66 Pulse Source Pulse Oximeter Temp 98.6 F Temp Source Temporal Artery Scan Pulse Oximetry (%) 97 Oxygen Delivery Method Room Air Intake Visit Reasons: EP Rectal Bleeding Intake Note: Patient here for rectal bleeding. no blood in stool, burning feeling which he noticed last sunday. Patient Tobacco Use Status: Current everyday Tobacco user Allergies gabapentin Adverse Reaction (Verified 11/02/22 08:35) Swelling Do you need a note to return to daycare/school/sports/work: No HPI HPI Comments History of Present Illness Details 59-year-old male who presents for rectal bleeding. Patient states that she but a week ago he noticed when he went to wipe after having a bowel movement there was blood on the tissue. He has noticed that off and on for the last week. He endorses a burning sensation when wiping and touching the area as if the skin is sloughing off . He has a history of hemorrhoids but this does not feel like that. He denies fevers chills abdominal pain nausea vomiting. blood in the stool or dark colored stools [facility] Medical History Agoraphobia CAD (coronary artery disease) Kidney stone Neuropathy Physical exam PTSD (post-traumatic stress disorder) Surgical History No pertinent past surgical history Family History Father Unknown family medical history Mother Unknown family medical history Social History Household Members: None Housing: House Do you presently have visiting nurse or other home services: No Unable to assess alcohol history related to: Unknown Alcohol intake: never Patient Tobacco Use Status: Current everyday Tobacco user Tobacco use type: Cigarette Cigarettes Per Day: 8 Years Smoked: 50 e-Cigarette/Vaping Use: Never Used Second Hand Smoke Exposure: Yes service: No Current occupational status: disabled Sexual orientation: Straight/Heterosexual Cognitive needs: No Hearing needs: No Vision needs: No Review of Systems Const All systems reviewed & are unremarkable except as noted in HPI and below Denies fever(s), Denies headache(s) and Denies weakness Eyes Reports no additional complaints ENT Reports no additional complaints and Denies headache(s) Card Reports no additional complaints, Denies chest pain, Denies leg edema and Denies dyspnea Resp Denies cough and Denies dyspnea GI Denies abdominal pain, Denies nausea and Denies vomiting Details: Rectal bleeding Denies dysuria and Denies urinary frequency Musc Reports no additional complaints Neuro Denies headache(s) and Denies weakness Psych Reports no additional complaints Endo Reports no additional complaints Physical Exam Vital Signs: Last Vital Signs Temp 98.6 F 11/02/22 08:32 Pulse 66 11/02/22 08:32 BP 122/80 11/02/22 08:32 Pulse Ox 97 11/02/22 08:32 Oxygen Delivery Method Room Air 11/02/22 08:32 Other: skin irritation surrounding the anus. No obvious bleeding no masses or hemorrhoids appreciated Assessment & Plan Assessment & Plan (1) Rectal bleeding: Code(s): K62.5 - Hemorrhage of anus and rectum Plan VSS. On exam patient presents alert and oriented no acute distress. Exam is notable for skin irritation around the rectum no masses or hemorrhoids appreciated no obvious bleeding. At this time would recommend using a barrier cream as it looks like skin irritation from repetitive wiping potentially. Recommend Desitin or withdrawals but paced Vaseline or Aquaphor. If bleeding persists or patient becomes symptomatic recommend go to the emergency department for further evaluation. Discharge instructions, follow up and treatment are discussed with patient in my usual fashion. Alternatives in treatment are also discussed. The patient will return for worsening symptoms or as needed. Advised that any labs/imaging ordered will be followed up on and contact made if further treatment needed. Counseled that patient's condition may require further evaluation and/or treatment. Symptoms of concern for worsening disorder discussed in detail in my customary manner. Patient does verbalize understanding of the plan, there are no apparent barriers to communication. The patient is given the opportunity to ask questions and have them answered to his/her satisfaction Patient Instructions: Please use barrier cream such as Desitin, but does but pace, Vaseline, or Benoit. If bleeding persists or UB become weak dizzy developed fever abdominal pain or any concerning symptoms please present to the emergency department. Coding Level of Care Code Est Pt Level 3 (67855) Diagnoses Rectal bleeding K62.5
[2022-11-02 08:32] VITALS: BP 122/80; PULSE 66; TEMP 37; O2SAT 97
== END 2022-11-02 09:20 | disposition home or self-care (01) ==
PROVIDERS: PCP Nurse Practitioner Family; Visit Provider Physician Assistant
DX: K62.5 Hemorrhage of anus and rectum (principal)
CPT/HCPCS: 99213

== ENCOUNTER 2023-02-20 09:46 | Outpatient (AMB) | payer OTHER, SELFPAY ==
--- NOTE | 2023-02-20 10:03 | MHC.PC.OV ---
Vital Signs 02/20/23 10:06 Height 5 ft 7 in Weight 144 lb BMI 22.6 BP 114/80 Blood Pressure Location Rt brachial Position Sitting Pulse 66 Pulse Source Pulse Oximeter Pulse Oximetry (%) 95 Oxygen Delivery Method Room Air Intake Visit Reasons: Annual PE Intake Note: Patient here for physical exam and would like to address his disability paperwork that was sent over to us. Allergies gabapentin Adverse Reaction (Verified 02/20/23 11:26) Swelling Medication List - Last Reconciled 02/20/23 by RILEY Hernandez No Known Home Meds Tobacco use date assessed: 10/16/22 Dental Screening Dental Screen Date: 02/20/23 Did you have a dental visit in the last 12 months?: No Did you have a dental problem in the last 6 months where you did not have access to dental care?: No Was dental information given to patient?: No HPI Annual PE HPI Details Pt is here for a PE. Will order labs. PSA is up to date. Denies dribbling with urination, weak stream, and frequent nocturia. Refuses colonoscopy and cologuard. Hx of vitamin B12 deficiency, will order lab. [facility] Medical History (Updated 02/20/23 @ 10:22 by RILEY Hernandez) Physical exam CAD (coronary artery disease) Kidney stone Neuropathy Agoraphobia PTSD (post-traumatic stress disorder) Surgical History No pertinent past surgical history Family History Father Unknown family medical history Mother Unknown family medical history Social History Household Members: None Housing: House Do you presently have visiting nurse or other home services: No Unable to assess alcohol history related to: Unknown Alcohol intake: never Patient Tobacco Use Status: Current everyday Tobacco user Tobacco use type: Cigarette Cigarettes Per Day: 8 Years Smoked: 50 e-Cigarette/Vaping Use: Never Used Second Hand Smoke Exposure: Yes service: No Current occupational status: disabled Sexual orientation: Straight/Heterosexual Cognitive needs: No Hearing needs: No Vision needs: No Questionnaire PHQ-9 Over the last 2 weeks, how often have you been bothered by any of the following problems? 1. Little interest or pleasure in doing things: nearly every day 2. Feeling down, depressed, or hopeless: nearly every day 3. Trouble falling or staying asleep, or sleeping too much: nearly every day 4. Feeling tired or having little energy: nearly every day 5. Poor appetite or overeating: more than half the days 6. Feeling bad about yourself - or that you are a failure or have let yourself or your family down: nearly every day 7. Trouble concentrating on things, such as reading the newspaper or watching television: nearly every day 8. Moving or speaking so slowly that other people could have noticed. Or the opposite - being so fidgety or restless that you have been moving around a lot more than usual: nearly every day 9. Thoughts that you would be better off or of hurting yourself in some way: nearly every day Total score: 26 Depression Screening Interpretation: Positive (has a therapist, denies any SI or HI) Depression Screening Follow-up: Existing condition and In treatment Depression Screening Done: Yes 82463 - PHQ-9 Billing: Yes Source: Developed by Drs. Jules Mcmahon, Zunilda Reed, Sergio Luther and colleagues, with an educational joanne from [employer]. Thrive Questionnaire Date Thrive assessed: 02/20/23 I am a: Patient What is your living situation today?: I have a steady place to live Within the past 12 months, did the food you bought not last and you didn't have the money to get more?: Never true Within the past 12 months, did you worry whether your food would run out before you got money to buy more?: Never true Do you have trouble paying for medicines?: Yes Do you have trouble getting transportation to medical appointments?: Yes Do you have trouble paying your heating and electricity bill?: Yes Do you have trouble taking care of your child, family member or friend?: No Do you have trouble with day-to-day activities such as bathing, preparing meals, shopping, managing finances, etc.?: No Are you currently unemployed and looking for a job?: Yes Are you interested in more education?: No Currently or been in a relationship where the following occur: no concerns reported AUDIT C Alcohol Use Questionnaire (AUDIT-C) 1. How often do you have a drink containing alcohol?: Never 3. How often do you have six or more drinks on one occasion?: Never Total Score: 0 Score Reviewed/Action Taken: No GRAHAM-7 AMB Questionnaire GRAHAM-7 Date GRAHAM - 7 assessed: 02/20/23 Feeling nervous, anxious, or on edge: 3 = Nearly every day Not being able to stop or control worryin = Nearly every day Worrying too much about different things: 3 = Nearly every day Trouble relaxin = Nearly every day Being so restless that it is hard to sit still: 3 = Nearly every day Becoming easily annoyed or irritable: 3 = Nearly every day Feeling afraid as if something awful might happen: 3 = Nearly every day Total GRAHAM-7 score (0-4 normal; 5-9 mild; 10-14 moderate; 15-21 severe): 21 Source: Developed by Drs. Jules Mcmahon, Zunilda Reed, Sergio Luther and colleagues, with an educational joanne from [employer]. GRAHAM-7 Assessment Billing GRAHAM-7 Assessment Tool: GRAHAM-7 Assessment 15348 Review of Systems Const Denies chills and Denies fever(s) Eyes Denies blurry vision ENT Denies vertigo, Denies dizziness and Denies sore throat Card Denies chest pain at rest, Denies chest pain with activity, Denies diaphoresis, Denies dyspnea and Denies dyspnea on exertion Resp Denies cough, Denies dyspnea, Denies dyspnea on exertion and Denies wheezing GI Denies abdominal pain, Denies melena, Denies hematochezia, Denies constipation, Denies diarrhea and Denies loose stools Denies hematuria Musc Denies numbness and Denies tingling Skin/Breast Denies lesions Neuro Denies vertigo, Denies dizziness, Denies numbness and Denies tingling Psych Denies anxiety, Denies depression, Denies homicidal ideation, Denies suicidal ideation and Denies other (substance abuse) Aller/Immun Denies wheezing Physical exam (Primary Care) Vital Signs: Last Vital Signs Pulse 66 02/20/23 10:06 BP 114/80 02/20/23 10:06 Pulse Ox 95 02/20/23 10:06 Oxygen Delivery Method Room Air 02/20/23 10:06 BMI result Body Mass Index 22.6 Tobacco/Smoking Status: Tobacco use Status Tobacco use date assessed 10/16/22 02/20/23 10:06 Patient Tobacco Use Status Current everyday Tobacco 02/20/23 10:06 Tobacco use type Cigarette 02/20/23 10:06 e-Cigarette/Vaping Use Never Used 02/20/23 10:06 PHQ-9: PHQ-9 Score PHQ-9: Total score 26 02/20/23 10:20 Depression Screening Interpretation: Positive (has a therapist, denies any SI or HI) Depression Screening Follow-up: Existing condition and In treatment Thrive Assessment: Date of Thrive Assessment Date Thrive assessed 02/20/23 02/20/23 10:18 Currently or been in a relationship where the following occur: no concerns reported Const General: cooperative Nutritional Appearance: well nourished Orientation/consciousness: patient oriented x3 HENMT Head: Yes normal to inspection, Yes normocephalic and Yes atraumatic Ears: TM's normal bilaterally Eyes General: appearance normal, both eyes and all related structures Alignment and Position: alignment normal and position normal Neck Neck: Yes normal visual inspection and Yes no lymphadenopathy Thyroid: Thyroid normal Resp Effort & Inspection: normal respiratory effort Auscultation: clear to auscultation bilaterally Cardio Rate: regular rate Rhythm: regular rhythm Heart sounds: S1 normal heart sound present, S2 normal heart sound present and no murmurs GI Palpation (GI): Soft to palpation and nontender Auscultation: normal bowel sounds Male General Exam: Yes normal external exam Penis: normal penis Scrotum: scrotum normal, testes descended bilaterally and no inguinal hernias Testes: no testicular mass Skin Rashes: no rashes Neuro General: patient oriented x3, moves all extremities, no focal motor deficits and deep tendon reflexes 2+ bilaterally Romberg Test: Negative Psych Appearance: grossly normal Mental Status: mental status grossly normal Speech and movement: Normal speech and movement present Affect: normal affect Attitude: cooperative Thought process: Normal thought process present Thought content: Normal thought content present Insight: Good insight present (Psych) Judgement: Good judgement present (Psych) Assessment and Plan Assessment & Plan (1) Physical exam: Code(s): Z00.00 - Encounter for general adult medical examination without abnormal findings Plan: Labs ordered (2) Screening PSA (prostate specific antigen): Code(s): Z12.5 - Encounter for screening for malignant neoplasm of prostate Plan: PSA ordered (3) Vitamin B12 deficiency: Code(s): E53.8 - Deficiency of other specified B group vitamins Plan: Labs ordered Plan The patient agreed to the use of a clinical medical assistant for this encounter. Scribed for RILEY Rowland by Jonna Cummings clinical medical assistant, on 02/20/2023 at 10:20 EST. Orders: Orders Complete Blood Count Auto Diff Today Z00.00 - Encounter for general adult medical examination without abnormal findings Comprehensive Oliver. Panel Fast Today Z00.00 - Encounter for general adult medical examination without abnormal findings UA CC w/rflx Micro + Cult Today Z00.00 - Encounter for general adult medical examination without abnormal findings Prostate Specific Antigen Scr Today Z12.5 - Encounter for screening for malignant neoplasm of prostate Vitamin B12 and Folate Today E53.8 - Deficiency of other specified B group vitamins TSH reflex Free T4 Today Z00.00 - Encounter for general adult medical examination without abnormal findings Lipid Panel Today Z00.00 - Encounter for general adult medical examination without abnormal findings Coding Level of Care Code Est Pt Prev Care 40-64y(19524) Diagnoses Physical exam Z00.00 Screening PSA (prostate specific antigen) Z12.5 Vitamin B12 deficiency E53.8 Additional Codes GRAHAM-7 Assessment Billing - GRAHAM-7 Assessment Tool: GRAHAM-7 Assessment 63034 ([id number])
[2023-02-20 10:06] VITALS: BP 114/80; PULSE 66; O2SAT 95; BMI 22.6
== END 2023-02-20 10:47 | disposition home or self-care (01) ==
PROVIDERS: PCP Nurse Practitioner Family; Visit Provider Nurse Practitioner Family
DX: Z00.00 Encounter for general adult medical examination without abnormal findings (principal); Z12.5 Encounter for screening for malignant neoplasm of prostate; E53.8 Deficiency of other specified B group vitamins
CPT/HCPCS: 99396

== ENCOUNTER 2023-02-21 11:53 | Outpatient (REF) | payer OTHER, SELFPAY ==
[2023-02-21 13:10] LABS: MANUAL DIFF FLAG NO
[2023-02-21 13:27] LABS: Basophils Absolute Auto 0.1 X10*3/uL (0.0-0.2); Basophils Percent Auto 0.8 % (0-2); Eosinophils Absolute Auto 0.1 X10*3/uL (0.0-0.4); Eosinophils Percent Auto 1.3 % (0-4); Hematocrit 43.1 % (42.0-52.0); Hemoglobin 13.9 g/dl (14.0-18.0); Imm Gran Abs Auto 0.02 X10*3/uL (0.00-0.03); Imm Gran Pct Auto 0.3 % (0.0-0.4); Lymphocytes Absolute Auto 1.4 X10*3/uL (1.2-4.9); Mean Corpuscular HGB Conc 32.3 g/dl (31.0-36.0); Mean Corpuscular Hemoglobin 32.3 pg (27.0-33.0); Mean Platelet Volume 10.1 fL (9.4-12.4); Monocytes Absolute Auto 0.5 X10*3/uL (0.1-1.2); Monocytes Percent Auto 8.3 % (2-11); Neutrophils Percent Auto 66.3 % (45-73); Platelet Count 252 X10*3/uL (160-400); Red Blood Count 4.31 X10*6/uL (4.60-5.80); Red Cell Distribution Width 13.2 % (11.0-16.0); White Blood Count 6.1 X10*3/uL (4.8-10.8)
[2023-02-21 13:46] LABS: Appearance Urine Clear; Color Urine Yellow; Glucose Urine UA Negative (Negative); Leukocyte Esterase Urine Negative (Negative); Nitrite Urine Negative (Negative); Specific Gravity - Urine 1.015 (1.005-1.025); UMIC TRIGGER UACC YES; Urine Blood Small (1+) (Negative); Urine Ketones Negative (Negative); Urine Protein Negative (Neg-Trace)
[2023-02-21 14:07] LABS: Bacteria Urine None Seen (None Seen); Hyaline Casts Urine 0-2 /LPF (0-2); Squamous Epithelial Cell Urine 0-2 /HPF (0-2); WBC Urine 0-5 /HPF (0-5)
[2023-02-21 14:08] LABS: Alanine Aminotransferase 14 U/L (0-40); Albumin Level 4.3 g/dL (3.5-5.0); Alkaline Phosphatase 59 U/L (39-117); Anion Gap 11 (12-20); Aspartate Amino Transferase 17 U/L (5-37); Bilirubin Total 0.5 mg/dL (0.0-1.0); Blood Urea Nitrogen 17 mg/dL (9-16); Calcium 8.9 mg/dL (8.4-10.2); Carbon Dioxide 26 mmol/L (22-29); Chloride 105 mmol/L (96-108); Cholesterol 216 mg/dL (<200); Estimated Glomerular Filt Rate > 60; Glucose Fasting 89 mg/dL (60-99); HDL Cholesterol 89 mg/dL (>40); LDL Cholesterol Calculated 121 mg/dL (<100); Potassium 4.2 mmol/L (3.3-5.1); Sodium 138 mmol/L (135-145); Triglycerides 34 mg/dL (<150)
[2023-02-21 14:13] LABS: TSH reflex Free T4 2.96 uIU/mL (0.32-4.0)
[2023-02-21 14:34] LABS: Folate 4.7 ng/mL (> or = 4.0); Prostate Specific Antigen Scr 0.29 ng/mL (<0.05-4.0); Vitamin B12 < 148 pg/mL (200-900)
== END 2023-02-21 11:54 | disposition home or self-care (01) ==
LOC: HO.HMGCLDS 11:53
PROVIDERS: PCP Nurse Practitioner Family; Visit Provider Nurse Practitioner Family
DX: Z00.00 Encounter for general adult medical examination without abnormal findings (principal); E53.8 Deficiency of other specified B group vitamins; Z12.5 Encounter for screening for malignant neoplasm of prostate
CPT/HCPCS: 36415; 80053; 80061; 81001; 82607; 82746; 84153; 84443; 85025

== ENCOUNTER 2023-08-16 09:45 | Outpatient (AMB) | payer OTHER, SELFPAY ==
--- NOTE | 2023-08-16 09:49 | A.OFFPC_ITS ---
Vital Signs 08/16/23 09:55 Height 5 ft 7 in Weight 149 lb BMI 23.3 BP 118/70 Blood Pressure Location Rt brachial Position Sitting Pulse 65 Pulse Source Pulse Oximeter Pulse Oximetry (%) 99 Oxygen Delivery Method Room Air Intake Visit Reasons: 6 Month follow up Intake Note: Patient here to discuss lump on left knee that has gotten bigger over the last couple of months. Allergies gabapentin Adverse Reaction (Verified 08/16/23 09:54) Swelling Tobacco use date assessed: 08/16/23 Dental Screening Dental Screen Date: 08/16/23 Did you have a dental visit in the last 12 months?: Yes Did you have a dental problem in the last 6 months where you did not have access to dental care?: No Was dental information given to patient?: Patient has dentist HPI 6 Month follow up HPI Details Pt reports a protrusion to his left knee. He reports that this is growing in size and is painful. Will refer to ortho. Pt reports numbness of his BLE (intermittent). Pt has seen neuro for this as well. His B12 was very low. Highly recommend pt take oral B12, pt is somewhat reluctant, will resend this. Denies fever, chills, and dizziness. [facility] Medical History Physical exam CAD (coronary artery disease) Kidney stone Neuropathy Agoraphobia PTSD (post-traumatic stress disorder) Surgical History No pertinent past surgical history Family History Father Unknown family medical history Mother Unknown family medical history Social History Household Members: None Housing: House Do you presently have visiting nurse or other home services: No Unable to assess alcohol history related to: Unknown Alcohol intake: never Patient Tobacco Use Status: Current everyday Tobacco user Tobacco use type: Cigarette Cigarettes Per Day: 8 Years Smoked: 50 e-Cigarette/Vaping Use: Never Used Second Hand Smoke Exposure: Yes service: No Current occupational status: disabled Sexual orientation: Straight/Heterosexual Cognitive needs: No Hearing needs: No Vision needs: No Questionnaire PHQ-9 Over the last 2 weeks, how often have you been bothered by any of the following problems? 44704 - PHQ-9 Billing: Patient declined-do not bill Source: Developed by Drs. Jules Mcmahon, Zunilda Reed, Sergio Luther and colleagues, with an educational joanne from [employer]. Thrive Questionnaire Date Thrive assessed: 02/20/23 GRAHAM-7 AMB Questionnaire GRAHAM-7 Date GRAHAM - 7 assessed: 02/20/23 Source: Developed by Drs. Jules Mcmahon, Zunilda Reed, Sergio Luther and colleagues, with an educational joanne from [employer]. GRAHAM-7 Assessment Billing GRAHAM-7 Assessment Tool: pt declined-do not bill Review of Systems Const Reports as per HPI Physical exam (Primary Care) Vital Signs: Last Vital Signs Pulse 65 08/16/23 09:55 BP 118/70 08/16/23 09:55 Pulse Ox 99 08/16/23 09:55 Oxygen Delivery Method Room Air 08/16/23 09:55 BMI result Body Mass Index 23.3 Tobacco/Smoking Status: Tobacco use Status Tobacco use date assessed 08/16/23 08/16/23 09:58 Patient Tobacco Use Status Current everyday Tobacco 08/16/23 09:49 Tobacco use type Cigarette 08/16/23 09:49 e-Cigarette/Vaping Use Never Used 08/16/23 09:49 Thrive Assessment: Date of Thrive Assessment Date Thrive assessed 02/20/23 08/16/23 09:49 Const General: cooperative Orientation/consciousness: patient oriented x3 Resp Other: lungs fairly clear, slightly diminished Effort & Inspection: normal respiratory effort Cardio Rate: regular rate Rhythm: regular rhythm Heart sounds: S1 normal heart sound present, S2 normal heart sound present and Murmur heart sound present systolic Neuro General: patient oriented x3 Extrem Other: left knee just inferior to patella with large golf ball sized protrusion, slightly tender to touch Psych Appearance: grossly normal Mental Status: mental status grossly normal Speech and movement: Normal speech and movement present Affect: normal affect Attitude: cooperative Thought process: Normal thought process present Thought content: Normal thought content present Insight: Good insight present (Psych) Judgement: Good judgement present (Psych) Assessment and Plan Assessment & Plan (1) Left knee pain: Code(s): M25.562 - Pain in left knee Plan: Referred to ortho (2) Vitamin B12 deficiency: Code(s): E53.8 - Deficiency of other specified B group vitamins Plan: Resending B12, labs ordered (3) Systolic murmur: Code(s): R01.1 - Cardiac murmur, unspecified Plan The patient agreed to the use of a regional medical director for this encounter. Scribed for RULA Rowland- by Jonna Cummings regional medical director, on 08/16/2023 at 10:30 EST. Orders: Orders TSH reflex Free T4 Today E53.8 - Deficiency of other specified B group vitamins, M25.562 - Pain in left knee UA CC w/rflx Micro + Cult Today E53.8 - Deficiency of other specified B group vitamins, M25.562 - Pain in left knee Vitamin B12 and Folate Today E53.8 - Deficiency of other specified B group vitamins, M25.562 - Pain in left knee Complete Blood Count Auto Diff Today E53.8 - Deficiency of other specified B group vitamins, M25.562 - Pain in left knee Comprehensive [place]. Panel Fast Today E53.8 - Deficiency of other specified B group vitamins, M25.562 - Pain in left knee Lipid Panel Today E53.8 - Deficiency of other specified B group vitamins, M25.562 - Pain in left knee CA echo transthoracic complete Today R01.1 - Cardiac murmur, unspecified Referrals Orthopedics Referral M25.562 - Pain in left knee Medications: Refilled mecobalamin (vitamin B12) (B12 Active) 1,000 mcg PO DAILY 90 tabs 0RF Coding Level of Care Code Est Pt Level 3 (10558) Diagnoses Left knee pain M25.562 Vitamin B12 deficiency E53.8 Systolic murmur R01.1
[2023-08-16 09:55] VITALS: BP 118/70; PULSE 65; O2SAT 99; BMI 23.3
== END 2023-08-16 10:52 | disposition home or self-care (01) ==
PROVIDERS: PCP Nurse Practitioner Family; Visit Provider Nurse Practitioner Family
DX: M25.562 Pain in left knee (principal); E53.8 Deficiency of other specified B group vitamins; R01.1 Cardiac murmur, unspecified
CPT/HCPCS: 99213

== ENCOUNTER 2023-08-16 10:53 | Outpatient (REF) | payer OTHER, SELFPAY ==
[2023-08-16 13:04] LABS: MANUAL DIFF FLAG NO
[2023-08-16 13:23] LABS: Alanine Aminotransferase 14 U/L (0-40); Albumin Level 4.4 g/dL (3.5-5.0); Alkaline Phosphatase 74 U/L (39-117); Anion Gap 11 (12-20); Aspartate Amino Transferase 17 U/L (5-37); Bilirubin Total 0.6 mg/dL (0.0-1.0); Blood Urea Nitrogen 16 mg/dL (9-16); Calcium 9.4 mg/dL (8.4-10.2); Carbon Dioxide 28 mmol/L (22-29); Chloride 105 mmol/L (96-108); Cholesterol 212 mg/dL (<200); Estimated Glomerular Filt Rate > 60; Glucose Fasting 96 mg/dL (60-99); HDL Cholesterol 80 mg/dL (>40); LDL Cholesterol Calculated 122 mg/dL (<100); Potassium 4.5 mmol/L (3.3-5.1); Sodium 139 mmol/L (135-145); Total Protein 7.2 g/dL (6.5-8.0); Triglycerides 52 mg/dL (<150)
[2023-08-16 13:26] LABS: Basophils Percent Auto 0.7 % (0-2); Eosinophils Percent Auto 0.7 % (0-4); Hematocrit 45.8 % (42.0-52.0); Hemoglobin 14.9 g/dl (14.0-18.0); Imm Gran Abs Auto 0.01 X10*3/uL (0.00-0.03); Imm Gran Pct Auto 0.2 % (0.0-0.4); Lymphocytes Absolute Auto 1.4 X10*3/uL (1.2-4.9); Lymphocytes Percent Auto 23.6 % (20-40); Mean Corpuscular HGB Conc 32.5 g/dl (31.0-36.0); Mean Corpuscular Hemoglobin 31.6 pg (27.0-33.0); Mean Corpuscular Volume 97.2 fL (80.0-98.0); Mean Platelet Volume 10.5 fL (9.4-12.4); Monocytes Absolute Auto 0.4 X10*3/uL (0.1-1.2); Monocytes Percent Auto 6.5 % (2-11); Neutrophils Percent Auto 68.3 % (45-73); Platelet Count 255 X10*3/uL (160-400); Red Blood Count 4.71 X10*6/uL (4.60-5.80); Red Cell Distribution Width 13.1 % (11.0-16.0); White Blood Count 5.9 X10*3/uL (4.8-10.8)
[2023-08-16 13:40] LABS: TSH reflex Free T4 1.98 uIU/mL (0.32-4.0)
[2023-08-16 13:45] LABS: Appearance Urine Clear; Color Urine Yellow; Glucose Urine UA Negative (Negative); Leukocyte Esterase Urine Trace (Negative); Nitrite Urine Negative (Negative); PH 5.5 (5.0-9.0); UMIC TRIGGER UACC YES; Urine Blood Moderate (2+) (Negative); Urine Ketones Negative (Negative); Urine Protein Negative (Neg-Trace)
[2023-08-16 13:52] LABS: Folate 7.4 ng/mL (> or = 4.0); Vitamin B12 227 pg/mL (200-900)
[2023-08-16 13:53] LABS: Bacteria Urine None Seen (None Seen); Hyaline Casts Urine 0-2 /LPF (0-2); RBC Urine >20 /HPF (0-2); Squamous Epithelial Cell Urine 0-2 /HPF (0-2); WBC Urine 0-5 /HPF (0-5)
== END 2023-08-16 10:54 | disposition home or self-care (01) ==
LOC: HO.HMGCLDS 10:53
PROVIDERS: PCP Nurse Practitioner Family; Visit Provider Nurse Practitioner Family
DX: E53.8 Deficiency of other specified B group vitamins (principal); M25.562 Pain in left knee
CPT/HCPCS: 36415; 80053; 80061; 81001; 81003; 82607; 82746; 84443; 85025

== ENCOUNTER 2023-09-11 14:28 | Outpatient (AMB) | payer OTHER, SELFPAY ==
[2023-09-11 14:30] VITALS: BP 122/72; PULSE 77; TEMP 36.7; O2SAT 97; BMI 23.3
--- NOTE | 2023-09-11 14:30 | AM.OFFWIN_ITS ---
Intake Vital Signs 09/11/23 14:30 Height 5 ft 7 in Weight 149 lb BMI 23.3 BP 122/72 Blood Pressure Location Rt brachial Position Sitting Pulse 77 Pulse Source Pulse Oximeter Temp 98.1 F Temp Source Oral Pulse Oximetry (%) 97 Intake Visit Reasons: left leg abscess changing in appearance Intake Note: pt is here for left leg abscess changing in appearance Patient Tobacco Use Status: Current everyday Tobacco user Allergies gabapentin Adverse Reaction (Verified 09/11/23 14:30) Swelling Do you need a note to return to daycare/school/sports/work: No HPI HPI Comments History of Present Illness Details 63-year-old man presents today complaini ng of a lesion on the anterior surface of his left knee. He is concerned this is an abscess that needs immediate attention. He states it has changed in color but not size. Does have slight pain to palpation COUNTS INCLUDE 234 BEDS AT THE [facility] Medical History Physical exam CAD (coronary artery disease) Kidney stone Neuropathy Agoraphobia PTSD (post-traumatic stress disorder) Surgical History No pertinent past surgical history Family History Father Unknown family medical history Mother Unknown family medical history Social History Household Members: None Housing: House Do you presently have visiting nurse or other home services: No Unable to assess alcohol history related to: Unknown Alcohol intake: never Patient Tobacco Use Status: Current everyday Tobacco user Tobacco use type: Cigarette Cigarettes Per Day: 8 Years Smoked: 50 e-Cigarette/Vaping Use: Never Used Second Hand Smoke Exposure: Yes service: No Current occupational status: disabled Sexual orientation: Straight/Heterosexual Cognitive needs: No Hearing needs: No Vision needs: No Review of Systems Const All systems reviewed & are unremarkable except as noted in HPI and below Physical Exam Vital Signs: Last Vital Signs Temp 98.1 F 09/11/23 14:30 Pulse 77 09/11/23 14:30 BP 122/72 09/11/23 14:30 Pulse Ox 97 09/11/23 14:30 BMI result Body Mass Index 23.3 Extrem Other: Are observed patient reveals a 2 cm lesion anterior surface of the left knee. It is not fluctuant erythematous. This mild tenderness to palpation. Patient states he has had for a long period time Assessment & Plan Assessment & Plan (1) Left knee pain: Code(s): M25.562 - Pain in left knee Plan: The patient has an appointment with dermatology to review the lesion on his left knee. Plan See plan Coding Level of Care Code Est Pt Level 3 (50171) Diagnoses Left knee pain M25.562
== END 2023-09-11 15:26 | disposition home or self-care (01) ==
PROVIDERS: PCP Nurse Practitioner Family; Visit Provider Physician Assistant Medical
DX: M25.562 Pain in left knee (principal)
CPT/HCPCS: 99213

== ENCOUNTER 2023-09-11 14:52 | Outpatient (REF) | payer OTHER, SELFPAY ==
--- NOTE | ~2023-09-11 | XR_ITS ---
EXAMINATION: XR KNEE, LEFT CLINICAL INFORMATION: Left knee pain COMPARISON: None available. TECHNIQUE: Four views of the left knee. FINDINGS: No fracture or joint effusion. Alignment is anatomic. Joint spaces are maintained. No abnormal soft tissue calcification. XR/XR knee LT 4V IMPRESSION: Normal left knee.
== END 2023-09-11 14:53 | disposition home or self-care (01) ==
LOC: HO.HMGCX 14:52
PROVIDERS: PCP Nurse Practitioner Family; Visit Provider Physician Assistant Medical
DX: M25.562 Pain in left knee (principal)
CPT/HCPCS: 73564

== ENCOUNTER 2023-11-13 14:57 | Outpatient (AMB) | payer OTHER, SELFPAY ==
[2023-11-13 15:04] VITALS: BP 140/92; PULSE 72; O2SAT 98; BMI 28.9
--- NOTE | 2023-11-13 15:04 | MHC.PC.OV ---
Vital Signs 11/13/23 15:04 Height 5 ft 7 in Weight 184 lb 4 oz BMI 28.9 BP 140/92 H Blood Pressure Location Lt brachial Position Sitting Pulse 72 Pulse Source Pulse Oximeter Pulse Oximetry (%) 98 Oxygen Delivery Method Room Air Intake Visit Reasons: left knee cyctic incision, BW & EKG Allergies gabapentin Adverse Reaction (Verified 11/13/23 15:07) Swelling Medication List - Last Reconciled 11/13/23 by Jcarlos Gudino MD mecobalamin (vitamin B12) 1,000 mcg sublingual DAILY Tobacco use date assessed: 11/13/23 Fall risk assessment: No Falls in past year Last assessed Fall Risk: 11/13/23 Dental Screening Dental Screen Date: 11/13/23 Did you have a dental visit in the last 12 months?: No Did you have a dental problem in the last 6 months where you did not have access to dental care?: No Was dental information given to patient?: No HPI left knee cyctic incision, BW & EKG HPI Details Patient is 63-year-old gentleman who is taking no medication, history of smoking, blood pressure is borderline elevated, came in for preop clearance Labs will be done in the morning EKG done today shows supraventricular complexes prominent QRS complex V3 V4 V5 I have sent EKG for cardiology review. If procedure is being done under sedation patient may go through the procedure However if anesthesia is involved then I would recommend that he get clearance from Cardiology. EKG image is included He has no shortness a breath chest pain no signs of infection Patient is eager to go through the procedure on 11/21/[address] Marcell Avalos [facility] Medical History Physical exam CAD (coronary artery disease) Kidney stone Neuropathy Agoraphobia PTSD (post-traumatic stress disorder) Surgical History No pertinent past surgical history Family History Father Unknown family medical history Mother Unknown family medical history Social History Household Members: None Housing: House Do you presently have visiting nurse or other home services: No Unable to assess alcohol history related to: Unknown Alcohol intake: never Patient Tobacco Use Status: Current everyday Tobacco user Tobacco use type: Cigarette Cigarettes Per Day: 8 Years Smoked: 50 Packs per year/per ci.00 e-Cigarette/Vaping Use: Never Used Second Hand Smoke Exposure: Yes service: No Current occupational status: disabled Sexual orientation: Straight/Heterosexual Cognitive needs: No Hearing needs: No Vision needs: No Questionnaire PHQ-9 Over the last 2 weeks, how often have you been bothered by any of the following problems? 1. Little interest or pleasure in doing things: more than half the days 2. Feeling down, depressed, or hopeless: more than half the days 3. Trouble falling or staying asleep, or sleeping too much: several days 4. Feeling tired or having little energy: several days 5. Poor appetite or overeating: not at all 6. Feeling bad about yourself - or that you are a failure or have let yourself or your family down: several days 7. Trouble concentrating on things, such as reading the newspaper or watching television: several days 8. Moving or speaking so slowly that other people could have noticed. Or the opposite - being so fidgety or restless that you have been moving around a lot more than usual: several days 9. Thoughts that you would be better off or of hurting yourself in some way: several days Total score: 10 Depression Screening Interpretation: Positive Depression Screening Follow-up: Declines treatment Depression Screening Done: Yes 35618 - PHQ-9 Billing: Yes Source: Developed by Drs. Jules Mcmahon, Zunilda Reed, Sergio Luther and colleagues, with an educational joanne from [employer]. Thrive Questionnaire Date Thrive assessed: 11/13/23 I am a: Patient What is your living situation today?: I have a place to live, but I am worried about losing it in the future Within the past 12 months, did the food you bought not last and you didn't have the money to get more?: Never true Within the past 12 months, did you worry whether your food would run out before you got money to buy more?: Never true Do you have trouble paying for medicines?: Yes Do you have trouble getting transportation to medical appointments?: Yes Do you have trouble paying your heating and electricity bill?: Yes Do you have trouble taking care of your child, family member or friend?: I choose not to answer this question Do you have trouble with day-to-day activities such as bathing, preparing meals, shopping, managing finances, etc.?: No Are you currently unemployed and looking for a job?: I choose not to answer this question Are you interested in more education?: No Please select the resources that you would like help with: Paying for medicine and Utilities Currently or been in a relationship where the following occur: No concerns reported THRIVE Score: 3 AUDIT C Alcohol Use Questionnaire (AUDIT-C) 1. How often do you have a drink containing alcohol?: Never 3. How often do you have six or more drinks on one occasion?: Never Total Score: 0 Score Reviewed/Action Taken: Yes GRAHAM-7 AMB Questionnaire GRAHAM-7 Date GRAHAM - 7 assessed: 11/13/23 Feeling nervous, anxious, or on edge: 2 = More than half the days Not being able to stop or control worryin = More than half the days Worrying too much about different things: 2 = More than half the days Trouble relaxin = More than half the days Being so restless that it is hard to sit still: 1 = Several days Becoming easily annoyed or irritable: 0 = Not at all Feeling afraid as if something awful might happen: 3 = Nearly every day Total GRAHAM-7 score (0-4 normal; 5-9 mild; 10-14 moderate; 15-21 severe): 12 Source: Developed by Drs. Jules Mcmahon, Zunilda Reed, Sergio Luther and colleagues, with an educational joanne from [employer]. GRAHAM-7 Assessment Billing GRAHAM-7 Assessment Tool: GRAHAM-7 Assessment 53687 Review of Systems Const Denies chills and Denies fever(s) ENT Denies epistaxis and Denies nasal discharge Card Denies chest pain Resp Denies chest congestion, Denies cough and Denies hemoptysis GI Denies diarrhea and Denies nausea Skin/Breast Denies rash Neuro Reports no additional complaints Psych Reports no additional complaints Endo Reports no additional complaints Physical exam (Primary Care) Vital Signs: Last Vital Signs Pulse 72 11/13/23 15:04 BP 140/92 H 11/13/23 15:04 Pulse Ox 98 11/13/23 15:04 Oxygen Delivery Method Room Air 11/13/23 15:04 BMI result Body Mass Index 28.9 Tobacco/Smoking Status: Tobacco use Status Tobacco use date assessed 11/13/23 11/13/23 15:09 Patient Tobacco Use Status Current everyday Tobacco 11/13/23 15:05 Tobacco use type Cigarette 11/13/23 15:05 e-Cigarette/Vaping Use Never Used 11/13/23 15:05 PHQ-9: PHQ-9 Score PHQ-9: Total score 11/13/23 15:09 Depression Screening Interpretation: Positive Depression Screening Follow-up: Declines treatment Thrive Assessment: Date of Thrive Assessment Date Thrive assessed 11/13/23 11/13/23 15:09 Currently or been in a relationship where the following occur: No concerns reported Const General: cooperative, comfortable and no acute distress Orientation/consciousness: patient oriented x3 HENMT Head: Yes normocephalic Eyes General: appearance normal, both eyes and all related structures Neck Neck: Yes supple Resp Effort & Inspection: normal respiratory effort, no cough and no stridor Cardio Other: Rhythm: regular rhythm Heart sounds: S1 normal heart sound present and S2 normal heart sound present Skin General skin exam: turgor normal Neuro General: patient oriented x3, tone normal and moves all extremities Extrem Elbow/forearm/wrist images: 1. Dermoid cyst without any discharge or inflammation, cyst does have a mouth but not draining at this time, patient tells me that it has gotten smaller, and is present chronically Right lower extremity: no edema Left lower extremity: no edema Assessment and Plan Assessment & Plan (1) Pre-op evaluation: Code(s): Z01.818 - Encounter for other preprocedural examination (2) Premature contractions, supraventricular: Code(s): I49.1 - Atrial premature depolarization (3) Dermoid cyst: Code(s): D36.9 - Benign neoplasm, unspecified site Plan Patient is 63-year-old gentleman who is taking no medication, history of smoking, blood pressure is borderline elevated, came in for preop clearance Labs will be done in the morning EKG done today shows supraventricular complexes prominent QRS complex V3 V4 V5 I have sent EKG for cardiology review. If procedure is being done under sedation patient may go through the procedure However if anesthesia is involved then I would recommend that he get clearance from Cardiology. EKG image is included He has no shortness a breath chest pain no signs of infection Patient is eager to go through the procedure on 11/21/[address] Marcell Avalos 45 minute spent most of the time is [id number] with the patient discussing EKG And the reason why I would like Cardiology to look at it Coding Level of Care Code Est Pt Level 5 (97945) Diagnoses Pre-op evaluation Z01.818 Premature contractions, supraventricular I49.1 Dermoid cyst D36.9 Additional Codes GRAHAM-7 Assessment Billing - GRAHAM-7 Assessment Tool: GRAHAM-7 Assessment 52002 ([id number])
== END 2023-11-13 16:12 | disposition home or self-care (01) ==
PROVIDERS: PCP Nurse Practitioner Family; Visit Provider Internal Medicine
DX: Z01.818 Encounter for other preprocedural examination (principal); I49.1 Atrial premature depolarization; D36.9 Benign neoplasm, unspecified site
CPT/HCPCS: 93000; 99215

== ENCOUNTER → 2023-11-13 15:56 | Outpatient (BNV) | payer OTHER, SELFPAY ==
--- NOTE | 2023-11-13 15:57 | A.ECONSULT ---
E-Consult Requesting Provider: jimmy fitzgerald Reason for request: Review EKG Was there a discussion with the requesting provider?: No Total time spent: 5-10 minutes Consulting Provider Opinion: EKG shows frequent PVCs and possible inferior pseudo infarct pattern. Patient is to undergo low risk surgery and if he has good functional capacity and no symptoms, he should be okay to undergo surgery. However I would suggest for him to have an echocardiogram and Holter monitor
== END ==
PROVIDERS: PCP Nurse Practitioner Family; Visit Provider Internal Medicine Cardiovascular Disease
DX: I49.3 Ventricular premature depolarization (principal)
CPT/HCPCS: 99446

== ENCOUNTER 2023-11-14 07:49 | Outpatient (REF) | payer OTHER, SELFPAY ==
[2023-11-14 10:09] LABS: MANUAL DIFF FLAG NO
[2023-11-14 10:18] LABS: Basophils Percent Auto 0.5 % (0-2); Eosinophils Absolute Auto 0.1 X10*3/uL (0.0-0.4); Eosinophils Percent Auto 0.9 % (0-4); Hematocrit 47.8 % (42.0-52.0); Hemoglobin 15.4 g/dl (14.0-18.0); INTERNATIONAL NORM RATIO 0.8 (0.9-1.1); Imm Gran Abs Auto 0.03 X10*3/uL (0.00-0.03); Imm Gran Pct Auto 0.5 % (0.0-0.4); Lymphocytes Absolute Auto 1.2 X10*3/uL (1.2-4.9); Lymphocytes Percent Auto 17.8 % (20-40); Mean Corpuscular HGB Conc 32.2 g/dl (31.0-36.0); Mean Corpuscular Hemoglobin 31.3 pg (27.0-33.0); Mean Corpuscular Volume 97.2 fL (80.0-98.0); Mean Platelet Volume 10.8 fL (9.4-12.4); Monocytes Absolute Auto 0.3 X10*3/uL (0.1-1.2); Monocytes Percent Auto 5.1 % (2-11); Neutrophils Absolute Auto 4.9 x10*3/uL (2.0-8.3); Neutrophils Percent Auto 75.2 % (45-73); Platelet Count 239 X10*3/uL (160-400); Prothrombin Time 10.2 SEC (11.1-13.3); Red Blood Count 4.92 X10*6/uL (4.60-5.80); Red Cell Distribution Width 13.1 % (11.0-16.0); White Blood Count 6.5 X10*3/uL (4.8-10.8)
[2023-11-14 10:21] LABS: Partial Thromboplastin Time 34.2 SEC (26.0-36.8)
[2023-11-14 10:40] LABS: Appearance Urine Clear; Color Urine Yellow; Glucose Urine UA Negative (Negative); Leukocyte Esterase Urine Negative (Negative); Nitrite Urine Negative (Negative); PH 5.5 (5.0-9.0); UMIC TRIGGER UACC YES; Urine Blood Moderate (2+) (Negative); Urine Ketones Trace mg/dL (Negative); Urine Protein Negative (Neg-Trace)
[2023-11-14 10:42] LABS: Alanine Aminotransferase 11 U/L (0-40); Albumin Level 4.5 g/dL (3.5-5.0); Alkaline Phosphatase 80 U/L (39-117); Anion Gap 14 (12-20); Aspartate Amino Transferase 14 U/L (5-37); Bilirubin Total 0.4 mg/dL (0.0-1.0); Blood Urea Nitrogen 13 mg/dL (9-16); Carbon Dioxide 26 mmol/L (22-29); Chloride 105 mmol/L (96-108); Estimated Glomerular Filt Rate > 60; Glucose Random 106 mg/dL (60-115); Potassium 4.8 mmol/L (3.3-5.1); Sodium 140 mmol/L (135-145); Total Protein 7.5 g/dL (6.5-8.0)
[2023-11-14 10:49] LABS: Bacteria Urine None Seen (None Seen); Hyaline Casts Urine 0-2 /LPF (0-2); Squamous Epithelial Cell Urine 0-2 /HPF (0-2); WBC Urine 0-5 /HPF (0-5)
[2023-11-14 11:07] LABS: Folate 5.3 ng/mL (> or = 4.0); Vitamin B12 1412 pg/mL (200-900)
== END 2023-11-14 07:50 | disposition home or self-care (01) ==
LOC: HO.HMGCLDS 07:49
PROVIDERS: PCP Nurse Practitioner Family; Visit Provider Nurse Practitioner Family
DX: Z01.818 Encounter for other preprocedural examination (principal); E53.8 Deficiency of other specified B group vitamins
CPT/HCPCS: 36415; 80053; 81001; 82607; 82746; 85025; 85610; 85730

== ENCOUNTER 2023-12-18 10:21 | Outpatient (AMB) | payer OTHER, SELFPAY ==
[2023-12-18 10:22] VITALS: BP 136/78; PULSE 76; O2SAT 98; BMI 23.0
--- NOTE | 2023-12-18 10:22 | A.OFFPC_ITS ---
Vital Signs 12/18/23 10:22 Height 5 ft 7 in Weight 147 lb BMI 23.0 BP 136/78 Blood Pressure Location Rt brachial Position Sitting Pulse 76 Pulse Source Pulse Oximeter Pulse Oximetry (%) 98 Intake Visit Reasons: 4 Month F/U Intake Note: pt is here for 4 month follow up Yarn Cleaner Required: No Accompanied by: Self / Same As Patient Allergies gabapentin Adverse Reaction (Verified 12/18/23 11:00) Swelling Medication List - Last Reconciled 12/18/23 by RILEY Hernandez aspirin (Adult Aspirin Regimen) 81 mg PO DAILY mecobalamin (vitamin B12) 1,000 mcg sublingual DAILY Tobacco use date assessed: 11/13/23 Fall risk assessment: No Falls in past year Last assessed Fall Risk: 12/18/23 Dental Screening Dental Screen Date: 11/13/23 HPI 4 Month F/U HPI Details HTN: Blood pressure is stable. Will order labs. Denies chest pain, shortness of breath, headache, dizziness, and blurred vision. CAD: Again, recommended daily ASA and quit smoking. ASA sent. Epidural inclusion cyst removed on 11/20 from his left inferior patellar region. Denies any current s/s of infection. Denies any current drainage, spreading erythema, tenderness with touch. Pt is willing to go for a low-dose CT, currently. [facility] Medical History Physical exam CAD (coronary artery disease) Kidney stone Neuropathy Agoraphobia PTSD (post-traumatic stress disorder) Surgical History No pertinent past surgical history Family History Father Unknown family medical history Mother Unknown family medical history Social History Household Members: None Housing: House Do you presently have visiting nurse or other home services: No Unable to assess alcohol history related to: Unknown Alcohol intake: never Patient Tobacco Use Status: Current everyday Tobacco user Tobacco use type: Cigarette Cigarettes Per Day: 8 Years Smoked: 50 e-Cigarette/Vaping Use: Never Used Second Hand Smoke Exposure: Yes service: No Current occupational status: disabled Sexual orientation: Straight/Heterosexual Cognitive needs: No Hearing needs: No Vision needs: No Questionnaire PHQ-9 Over the last 2 weeks, how often have you been bothered by any of the following problems? 06587 - PHQ-9 Billing: Patient declined-do not bill Source: Developed by Drs. Jules Mcmahon, Zunilda Reed, Sergio Luther and colleagues, with an educational joanne from [employer]. Thrive Questionnaire Date Thrive assessed: 12/18/23 I am a: Patient What is your living situation today?: I have a place to live, but I am worried about losing it in the future Within the past 12 months, did the food you bought not last and you didn't have the money to get more?: Never true Within the past 12 months, did you worry whether your food would run out before you got money to buy more?: Never true Do you have trouble paying for medicines?: Yes Do you have trouble getting transportation to medical appointments?: Yes Do you have trouble paying your heating and electricity bill?: Yes Do you have trouble taking care of your child, family member or friend?: I choose not to answer this question Do you have trouble with day-to-day activities such as bathing, preparing meals, shopping, managing finances, etc.?: No Are you currently unemployed and looking for a job?: I choose not to answer this question Are you interested in more education?: No Currently or been in a relationship where the following occur: No concerns reported THRIVE Score: 3 GRAHAM-7 AMB Questionnaire GRAHAM-7 Date GRAHAM - 7 assessed: 11/13/23 Source: Developed by Drs. Jules Mcmahon, Zunilda Reed, Sergio Luther and colleagues, with an educational joanne from [employer]. GRAHAM-7 Assessment Billing GRAHAM-7 Assessment Tool: pt declined-do not bill Review of Systems Const Reports as per HPI Physical exam (Primary Care) Vital Signs: Last Vital Signs Pulse 76 12/18/23 10:22 BP 136/78 12/18/23 10:22 Pulse Ox 98 12/18/23 10:22 BMI result Body Mass Index 23.0 Tobacco/Smoking Status: Tobacco use Status Tobacco use date assessed 11/13/23 12/18/23 10:23 Patient Tobacco Use Status Current everyday Tobacco 12/18/23 10:23 Tobacco use type Cigarette 12/18/23 10:23 e-Cigarette/Vaping Use Never Used 12/18/23 10:23 Thrive Assessment: Date of Thrive Assessment Date Thrive assessed 12/18/23 12/18/23 10:23 Currently or been in a relationship where the following occur: No concerns reported Const General: cooperative Orientation/consciousness: patient oriented x3 Resp Other: lungs fairly clear, slightly diminished Effort & Inspection: normal respiratory effort Cardio Rate: regular rate Rhythm: regular rhythm Heart sounds: S1 normal heart sound present, S2 normal heart sound present and Murmur heart sound present systolic Skin Other: just inferior to left knee with vertical incision, well approximated, no signs of infection. Healing. Neuro General: patient oriented x3 Psych Appearance: grossly normal Mental Status: mental status grossly normal Speech and movement: Normal speech and movement present Affect: normal affect Attitude: cooperative Thought process: Normal thought process present Thought content: Normal thought content present Insight: Good insight present (Psych) Judgement: Good judgement present (Psych) Coding Level of Care Code Est Pt Level 3 (07059) Diagnoses HTN (hypertension) I10 Screening PSA (prostate specific antigen) Z12.5 Smoker F17.200 Assessment & Plan Assessment & Plan (1) HTN (hypertension): Code(s): I10 - Essential (primary) hypertension Category: Medical Plan: stable currently (2) Screening PSA (prostate specific antigen): Code(s): Z12.5 - Encounter for screening for malignant neoplasm of prostate Category: Medical (3) Smoker: Code(s): F17.200 - Nicotine dependence, unspecified, uncomplicated Category: Social Hx Plan: referred for LDCT Plan The patient agreed to the use of a medical appointment clerk for this encounter. Scribed for RULA Rowland- by bradley Osorio scribe, on 12/18/2023 at 10:40 EST. Orders: Orders Comprehensive [place]. Panel Fast Today I10 - Essential (primary) hypertension TSH reflex Free T4 Today I10 - Essential (primary) hypertension Lipid Panel Today I10 - Essential (primary) hypertension Prostate Specific Antigen Scr Today Z12.5 - Encounter for screening for malignant neoplasm of prostate Complete Blood Count Auto Diff Today I10 - Essential (primary) hypertension UA CC w/rflx Micro + Cult Today I10 - Essential (primary) hypertension Referrals Lung Cancer Screening Referral F17.200 - Nicotine dependence, unspecified, uncomplicated Medications: New aspirin (Adult Aspirin Regimen) 81 mg PO DAILY 90 tabs 3RF
== END 2023-12-18 11:34 | disposition home or self-care (01) ==
PROVIDERS: PCP Nurse Practitioner Family; Visit Provider Nurse Practitioner Family
DX: I10 Essential (primary) hypertension (principal); Z12.5 Encounter for screening for malignant neoplasm of prostate; F17.200 Nicotine dependence, unspecified, uncomplicated

== ENCOUNTER → 2023-12-18 10:21 | Outpatient (BNVA) | payer OTHER, SELFPAY | PROVIDERS: PCP Nurse Practitioner Family; Visit Provider Nurse Practitioner Family ==

== ENCOUNTER 2023-12-18 11:21 | Outpatient (REF) | payer OTHER, SELFPAY ==
[2023-12-18 13:19] LABS: MANUAL DIFF FLAG NO
[2023-12-18 13:30] LABS: Appearance Urine Clear; Color Urine Yellow; Glucose Urine UA Negative (Negative); Leukocyte Esterase Urine Negative (Negative); Nitrite Urine Negative (Negative); PH 5.5 (5.0-9.0); UMIC TRIGGER UACC YES; Urine Blood Small (1+) (Negative); Urine Ketones Negative (Negative); Urine Protein Negative (Neg-Trace)
[2023-12-18 13:36] LABS: Basophils Percent Auto 0.7 % (0-2); Eosinophils Percent Auto 0.7 % (0-4); Hemoglobin 14.7 g/dl (14.0-18.0); Imm Gran Abs Auto 0.02 X10*3/uL (0.00-0.03); Imm Gran Pct Auto 0.3 % (0.0-0.4); Lymphocytes Absolute Auto 1.4 X10*3/uL (1.2-4.9); Lymphocytes Percent Auto 24.5 % (20-40); Mean Corpuscular HGB Conc 33.4 g/dl (31.0-36.0); Mean Corpuscular Hemoglobin 31.8 pg (27.0-33.0); Mean Corpuscular Volume 95.2 fL (80.0-98.0); Mean Platelet Volume 10.4 fL (9.4-12.4); Monocytes Absolute Auto 0.5 X10*3/uL (0.1-1.2); Monocytes Percent Auto 7.7 % (2-11); Neutrophils Absolute Auto 3.9 x10*3/uL (2.0-8.3); Neutrophils Percent Auto 66.1 % (45-73); Platelet Count 259 X10*3/uL (160-400); Red Blood Count 4.62 X10*6/uL (4.60-5.80); Red Cell Distribution Width 13.2 % (11.0-16.0); White Blood Count 5.8 X10*3/uL (4.8-10.8)
[2023-12-18 13:48] LABS: Bacteria Urine None Seen (None Seen); Hyaline Casts Urine 0-2 /LPF (0-2); RBC Urine 0-2 /HPF (0-2); Squamous Epithelial Cell Urine 0-2 /HPF (0-2); WBC Urine 0-5 /HPF (0-5)
[2023-12-18 14:21] LABS: Prostate Specific Antigen Scr 0.53 ng/mL (<0.05-4.0)
[2023-12-18 14:22] LABS: Alanine Aminotransferase 16 U/L (0-40); Albumin Level 4.3 g/dL (3.5-5.0); Alkaline Phosphatase 66 U/L (39-117); Anion Gap 11 (12-20); Aspartate Amino Transferase 18 U/L (5-37); Bilirubin Total 0.5 mg/dL (0.0-1.0); Blood Urea Nitrogen 15 mg/dL (9-16); Calcium 9.5 mg/dL (8.4-10.2); Carbon Dioxide 27 mmol/L (22-29); Chloride 106 mmol/L (96-108); Cholesterol 199 mg/dL (<200); Estimated Glomerular Filt Rate > 60; Glucose Fasting 92 mg/dL (60-99); HDL Cholesterol 88 mg/dL (>40); LDL Cholesterol Calculated 105 mg/dL (<100); Potassium 4.4 mmol/L (3.3-5.1); Sodium 140 mmol/L (135-145); Total Protein 6.9 g/dL (6.5-8.0); Triglycerides 32 mg/dL (<150)
[2023-12-18 14:23] LABS: TSH reflex Free T4 2.13 uIU/mL (0.32-4.0)
== END 2023-12-18 11:22 | disposition home or self-care (01) ==
LOC: HO.HMGCLDS 11:21
PROVIDERS: PCP Nurse Practitioner Family; Visit Provider Nurse Practitioner Family
DX: Z12.5 Encounter for screening for malignant neoplasm of prostate (principal); I10 Essential (primary) hypertension; F17.200 Nicotine dependence, unspecified, uncomplicated; Z71.6 Tobacco abuse counseling
CPT/HCPCS: 36415; 80053; 80061; 81001; 84153; 84443; 85025; 99212

== ENCOUNTER → 2023-12-31 12:43 | Outpatient (REF) | payer OTHER, SELFPAY ==
--- NOTE | 2023-12-31 12:51 | HM_ITS ---
Conclusion: 1. Patient was monitored for total period of 3 days 2. Baseline was normal sinus rhythm with average heart of 73 beats per minute 3. No significant pauses noted 4. Frequent PACs noted with total burden of 11.4% with very frequent supraventricular runs with fastest at 217 beats per minute and the longest at 19 beats per minute 5. No patient reported events MTDD
--- NOTE | 2023-12-31 12:51 | CA_ITS ---
Transthoracic Echocardiogram Patient (Last, First, Middle): Сергей Cline, Gender: Male Date of : 1960 Age: 63 Procedure Date: 12/31/2023 Procedure Type: Transthoracic Echocardiogram Location: OP Height: 170.18 cm Weight: 65.77 kg BSA: 1.76 m2 Heart Rate: bpm BP: 140 / 84 mmHg Student Services Counselor: JOSE Referring MD: Jcarlos Gudino MD Symptoms: I49.1 - Atrial premature depolarization Study Quality: Adequate ECG Rhythm: Sinus Conclusions: - The left ventricular systolic function is normal. The calculated ejection fraction is 57% by biplane method. - The basal inferior segment is akinetic. The inferolateral wall is hypokinetic. - There is moderate calcification of the aortic valve. There is mild aortic valve stenosis. - There is moderate posterior mitral annular calcification. Findings Left Ventricle Normal left ventricular cavity size. The left ventricular systolic function is normal. The calculated ejection fraction is 57% by biplane method. There is evidence of regional wall motion abnormalities. Evidence suggests grade I (mild) diastolic dysfunction. There is mild septal asymmetric hypertrophy. Wall Motion Rest Echo Findings The inferolateral wall is hypokinetic. The basal inferior segment is akinetic. Right Ventricle Mildly increased right ventricular cavity size. There is normal right ventricular systolic function. Atria Mild biatrial enlargement. Aortic Valve There is moderate calcification of the aortic valve. There is mild aortic valve stenosis. There is no aortic valve regurgitation. Mitral Valve There is moderate posterior mitral annular calcification. There is no mitral valve regurgitation. There is no mitral valve stenosis. Pulmonic Valve The pulmonic valve is likely normal. Tricuspid Valve There is no tricuspid valve regurgitation. Tricuspid regurgitation envelope is inadequate for calculation of right ventricular systolic pressure. Great Vessels The asc aorta is normal in size. Venous The inferior vena cava is mildly dilated and collapses greater than 50% with inspiration. Pericardium/Pleural There is no evidence of pericardial effusion. Prior Study Comparison Changes noted compared to prior study dated: 10/25/2020. Progression of aortic valve calcification. Measurements 2D Linear Measurements IVSd: 1.18 0.6-0.9/0.6-1.0 cm LVIDd: 4.74 3.9-5.3/4.2-5.9 cm LVIDd Index: 2.69 2.4-3.2/2.2-3.1 cm/m2 LVIDs: 3.15 2.0-3.6 cm LVPWd: 0.94 0.7-1.1 cm LA Diam: 3.10 2.7-3.8/3.0-4.0 cm LAIDs Index: 1.76 1.5-2.3 cm/m2 LV Mass: 224.25 67-162/88-224 g LV Mass Index: 127.42 43-95/49-115 g/m2 LVOT Diam: 2.00 3.0+(-)1.3 cm 2D Systolic Function EF 4C: 59.90 >55% EF 2C: 56.80 >55% EF BiP: 57.40 >55% Mitral Valve MV Pk E: 0.54 MV PK A: 0.71 MV Decel Time: 297.00 E/A: 0.80 E'Lateral: 7.14 E'Medial: 6.42 E/E' Med: 8.40 E/E' Lat: 7.50 PHT: 87.00 MVA PHT: 2.53 Decel Wise: 1.81 Aortic Valve AoV Pk Brent: 1.67 AoV Mn Brent: 1.12 AoV VTI: 0.35 AoV Pk Grad: 11.00 Aov Mn Grad: 6.00 GRICELDA Cont.VTI: 1.70 LVOT LVOT Pk Brent: 0.86 LVOT Mn Brent: 0.57 LVOT VTI: 0.19 LVOT Pk Grad: 3.00 LVOT Mn Grad: 2.00 LVOT Diam: 2.00 LVOT Area: 3.14 Diastolic Function MV Pk E: 0.54 MV Pk A: 0.71 E/A: 0.80 E'Medial: 6.42 E/E' Med: 8.40 E' Laterial: 7.14 E/E' Lat: 7.50 Right Ventricle TAPSE (mm): 28.20 TVS' Brent: 10.50 Tricuspid Valve RA Press: 8.00 Great Vessels Aorta Sinus of Valsalva: 3.33 2.0-3.[address] [place]: 2.58 1.7-3.4 cm Ao Asc: 3.00 2.1-3.4 cm Updated in Other Vendor System with Status of Final Hermes Hubbard MD electronically signed on 01/01/2024 11:14:58 AM with status of Final
== END ==
LOC: HO.CARD 12:43
PROVIDERS: PCP Nurse Practitioner Family; Visit Provider Internal Medicine
DX: I49.1 Atrial premature depolarization (principal)
CPT/HCPCS: 93242; 93306

== ENCOUNTER → 2023-12-31 12:51 | Outpatient (BNV) | payer OTHER, SELFPAY | PROVIDERS: PCP Nurse Practitioner Family; Visit Provider Internal Medicine | DX: I49.1 Atrial premature depolarization (principal); I47.10 Supraventricular tachycardia, unspecified | CPT/HCPCS: 93244; 93306 ==

== ENCOUNTER 2024-06-19 07:56 | Outpatient (AMB) | payer OTHER, SELFPAY ==
[2024-06-19 08:00] VITALS: BP 140/80; PULSE 68; RESP 16; TEMP 36.5; O2SAT 99; BMI 23.5
--- NOTE | 2024-06-19 08:00 | A.OFFPC_ITS ---
Vital Signs 06/19/24 08:00 Height 5 ft 7 in Weight 150 lb BMI 23.5 BP 140/80 H Blood Pressure Location Lt brachial Respiration 16 Pulse 68 Pulse Source Pulse Oximeter Temp 97.7 F Temp Source Oral Pulse Oximetry (%) 99 Oxygen Delivery Method Room Air Intake Visit Reasons: PE Intake Note: Pt is here today for his PE Allergies gabapentin Adverse Reaction (Verified 06/19/24 08:01) Swelling Medication List - Last Reconciled 06/19/24 by RILEY Hernandez No Known Home Meds Tobacco use date assessed: 06/19/24 Dental Screening Dental Screen Date: 06/19/24 Did you have a dental visit in the last 12 months?: No Did you have a dental problem in the last 6 months where you did not have access to dental care?: No Was dental information given to patient?: No HPI PE HPI0 Details History of Present Illness The patient is a 63-year-old male presenting for referral and management of long-term health conditions and screenings. He has a known past medical history of B12 deficiency, with an upcoming check on his level. There is also a history of supraventricular tachycardia, identified through prior Holter monitoring and electrocardiograms. Despite previous referral for cardiology, the patient has not received any further follow-up and is currently hesitant to proceed with the consultation. Pt has a sig. psych Hx. For his microscopic hematuria, formerly managed by urology, I intend to perform a cytology evaluation. Additionally, the patient is a smoker, for which a low- dose CT scan was recommended; however, there are currently hesitations, with a plan to reissue the referral. He consistently declines participation in colorectal cancer screening programs, including [employer], and does not report any symptoms related to the gastrointestinal tract, such as constipation or diarrhea. He denies any recent symptoms such as fever, chills, chest pain, or increased shortness of breath. REFUSED ALL MEDICATIONS, DESPITE REINFORCING THE IMPORTANCE OF THEM. Health Maintenance - Referral for low-dose CT scan for lung cancer screening due to smoking history. - Referred for cardiology consultation d ue to previous supraventricular tachycardia findings. - Evaluation of B12 deficiency ongoing; lab checking B12 levels. - Consideration of cytology for evaluati on of microscopic hematuria. Social History - Smoking: The patient is an active smok er. - Physical Activity and Health Screening : Has been advised on lung health and screened for cardiac and cancer risk, though he is currently hesitant to pursue further screenings. Review of Systems - Constitutional: Denies fever and chill s. - Cardiovascular: Denies chest pain. His tory of supraventricular tachycardia. - Respiratory: Denies increased shortnes s of breath. - Gastrointestinal: Denies abdominal ebenezer n, constipation, diarrhea. - Genitourinary: Formerly treated for mi croscopic hematuria. -denies si or hi Physical Exam General: Cooperative, healthy appearing, comfortable, no acute distress and well developed Orientation: Patient oriented x3 Limitations: No limitations Head: Normal to inspection Ears: Reports not hearing anything Nose: Normal external nose present Face and sinus: Normal facial exam Eyes: Appearance normal, both eyes and all related structures Neck: Normal visual inspection and Yes full ROM Respiratory: Normal respiratory effort and able to speak in complete sentences. Clear to auscultation bilaterally Cardiovascular: S1 and S2. GI: Normal to inspection. Soft to palpation and nontender Skin: No rashes or lesions noted Neuro: Patient oriented x3 Extremities: Normal to inspection Results Plan To address the deficiency, I will check the patient's levels. I plan to resubmit the referral to cardiology for the management of supraventricular tachycardia to ensure follow-up. Concerning the history of microscopic hematuria (seen urology in the past), I will perform a cytology assessment. I will also reinstate the referral for a low-dose CT scan for lung cancer screening due to the patient's smoking history, despite his present reluctance. The refusal of colorectal cancer screenings will be noted, and discussion about the importance of screenings will continue. Discussion Notes I discussed with the patient the importance of evaluating and managing his B12 deficiency by checking his levels. We reviewed the necessity of follow-up with cardiology due to his history of supraventricular tachycardia, and I will resubmit the referral. In terms of his smoking history, I highlighted the benefits of participating in a low-dose CT scan to screen for potential lung issues, even though he currently hesitates; the CT referral will be resubmitted. Additionally, I advised a cytology to monitor his history of microscopic hematuria. We also talked about his refusal of colon cancer screening, emphasizing the importance and benefits of routine health screenings for cancer prevention. Patient Instructions - Follow up for B12 level testing as adv ised. - Pursue cardiology consultation as per the new referral. - Attend the low-dose CT scan appointmen t when rescheduled. - Undergo cytology for evaluation of beatris roscopic hematuria. - Consider participating in colorectal c ancer screening in future discussions. - Notify if any new symptoms develop, rowe ch as chest pain or abdominal discomfort. [facility] Medical History Physical exam CAD (coronary artery disease) Kidney stone Neuropathy Agoraphobia PTSD (post-traumatic stress disorder) Surgical History No pertinent past surgical history Family History Father Unknown family medical history Mother Unknown family medical history Social History Household Members: None Housing: House Do you presently have visiting nurse or other home services: No Unable to assess alcohol history related to: Unknown Alcohol intake: never Patient Tobacco Use Status: Current everyday Tobacco user Tobacco use type: Cigarette Cigarettes Per Day: 8 Years Smoked: 50 e-Cigarette/Vaping Use: Never Used Second Hand Smoke Exposure: Yes service: No Current occupational status: disabled Sexual orientation: Straight/Heterosexual Cognitive needs: No Hearing needs: No Vision needs: No Questionnaire PHQ-9 Over the last 2 weeks, how often have you been bothered by any of the following problems? 1. Little interest or pleasure in doing things: nearly every day 2. Feeling down, depressed, or hopeless: nearly every day 3. Trouble falling or staying asleep, or sleeping too much: nearly every day 4. Feeling tired or having little energy: nearly every day 5. Poor appetite or overeating: more than half the days 6. Feeling bad about yourself - or that you are a failure or have let yourself or your family down: nearly every day 7. Trouble concentrating on things, such as reading the newspaper or watching television: nearly every day 8. Moving or speaking so slowly that other people could have noticed. Or the opposite - being so fidgety or restless that you have been moving around a lot more than usual: more than half the days 9. Thoughts that you would be better off or of hurting yourself in some way: more than half the days Total score: 24 Depression Screening Interpretation: Positive (denies any si or hi, sees a therapist regularly) Depression Screening Follow-up: Existing condition Depression Screening Done: Yes Source: Developed by Drs. Jules Mcmahon, Zunilda Reed, Sergio Luther and colleagues, with an educational joanne from [employer]. Thrive Questionnaire Date Thrive assessed: 06/19/24 I am a: Patient What is your living situation today?: I have a place to live, but I am worried about losing it in the future Within the past 12 months, did the food you bought not last and you didn't have the money to get more?: Never true Within the past 12 months, did you worry whether your food would run out before you got money to buy more?: Never true Do you have trouble paying for medicines?: Yes Do you have trouble getting transportation to medical appointments?: Yes Do you have trouble paying your heating and electricity bill?: Yes Do you have trouble taking care of your child, family member or friend?: I choose not to answer this question Do you have trouble with day-to-day activities such as bathing, preparing meals, shopping, managing finances, etc.?: No Are you currently unemployed and looking for a job?: No Are you interested in more education?: No Please select the resources that you would like help with: Food, Paying for medicine, Transportation and Utilities Currently or been in a relationship where the following occur: I choose not to answer THRIVE Score: 3 AUDIT C Alcohol Use Questionnaire (AUDIT-C) 1. How often do you have a drink containing alcohol?: Never Total Score: 0 GRAHAM-7 AMB Questionnaire GRAHAM-7 Date GRAHAM - 7 assessed: 06/19/24 Feeling nervous, anxious, or on edge: 3 = Nearly every day Not being able to stop or control worryin = Nearly every day Worrying too much about different things: 3 = Nearly every day Trouble relaxin = Nearly every day Being so restless that it is hard to sit still: 3 = Nearly every day Becoming easily annoyed or irritable: 3 = Nearly every day Feeling afraid as if something awful might happen: 3 = Nearly every day Total GRAHAM-7 score (0-4 normal; 5-9 mild; 10-14 moderate; 15-21 severe): 21 Source: Developed by Drs. Jules Mcmahon, Zunilda Reed, Sergio Luther and colleagues, with an educational joanne from [employer]. GRAHAM-7 Assessment Billing GRAHAM-7 Assessment Tool: GRAHAM-7 Assessment 62008 (denies any si or hi, has a therapist) Physical exam (Primary Care) Vital Signs: Last Vital Signs Temp 97.7 F 06/19/24 08:00 Pulse 68 06/19/24 08:00 Resp 16 06/19/24 08:00 BP 140/80 H 06/19/24 08:00 Pulse Ox 99 06/19/24 08:00 Oxygen Delivery Method Room Air 06/19/24 08:00 BMI result Body Mass Index 23.5 Tobacco/Smoking Status: Tobacco use Status Tobacco use date assessed 06/19/24 06/19/24 08:05 Patient Tobacco Use Status Current everyday Tobacco 06/19/24 08:05 Tobacco use type Cigarette 06/19/24 08:05 e-Cigarette/Vaping Use Never Used 06/19/24 08:05 PHQ-9: PHQ-9 Score PHQ-9: Total score 24 06/19/24 08:05 Depression Screening Interpretation: Positive (denies any si or hi, sees a therapist regularly) Depression Screening Follow-up: Existing condition Thrive Assessment: Date of Thrive Assessment Date Thrive assessed 06/19/24 06/19/24 08:05 Currently or been in a relationship where the following occur: I choose not to answer Coding Level of Care Code Est Pt Prev Care 40-64y(03813) Diagnoses Physical exam Z00.00 Screening PSA (prostate specific antigen) Z12.5 Premature contractions, supraventricular I49.1 Vitamin B12 deficiency E53.8 Microscopic hematuria R31.29 Additional Codes GRAHAM-7 Assessment Billing - GRAHAM-7 Assessment Tool: GRAHAM-7 Assessment 65365 ([id number]) Assessment & Plan Assessment & Plan (1) Physical exam: Code(s): Z00.00 - Encounter for general adult medical examination without abnormal findings Category: Medical (2) Screening PSA (prostate specific antigen): Code(s): Z12.5 - Encounter for screening for malignant neoplasm of prostate Category: Medical (3) Premature contractions, supraventricular: Code(s): I49.1 - Atrial premature depolarization Category: Medical (4) Vitamin B12 deficiency: Code(s): E53.8 - Deficiency of other specified B group vitamins Category: Medical (5) Microscopic hematuria: Code(s): R31.29 - Other microscopic hematuria Category: Medical Plan . Orders: Orders Complete Blood Count Auto Diff Today Z00.00 - Encounter for general adult medical examination without abnormal findings TSH reflex Free T4 Today Z00.00 - Encounter for general adult medical examination without abnormal findings Prostate Specific Antigen Scr Today Z12.5 - Encounter for screening for malignant neoplasm of prostate Vitamin B12 and Folate Today E53.8 - Deficiency of other specified B group vitamins Comprehensive [place]. Panel Fast Today Z00.00 - Encounter for general adult medical examination without abnormal findings UA CC w/rflx Micro + Cult Today Z00.00 - Encounter for general adult medical examination without abnormal findings Lipid Panel Today Z00.00 - Encounter for general adult medical examination without abnormal findings AMB EKG-In Office Today I49.1 - Atrial premature depolarization Urine Cytology Today R31.29 - Other microscopic hematuria
== END 2024-06-19 09:00 | disposition home or self-care (01) ==
LOC: HO.HMCC 07:57
PROVIDERS: PCP Nurse Practitioner Family; Visit Provider Nurse Practitioner Family
DX: Z00.00 Encounter for general adult medical examination without abnormal findings (principal); Z12.5 Encounter for screening for malignant neoplasm of prostate; I49.1 Atrial premature depolarization; E53.8 Deficiency of other specified B group vitamins; R31.29 Other microscopic hematuria

== ENCOUNTER 2024-06-19 07:56 | Outpatient (REF) | payer OTHER, SELFPAY ==
[2024-06-19 10:04] LABS: MANUAL DIFF FLAG NO
[2024-06-19 10:22] LABS: Basophils Percent Auto 0.8 % (0-2); Eosinophils Percent Auto 0.8 % (0-4); Hematocrit 44.1 % (42.0-52.0); Hemoglobin 14.4 g/dl (14.0-18.0); Imm Gran Abs Auto 0.01 X10*3/uL (0.00-0.03); Imm Gran Pct Auto 0.2 % (0.0-0.4); Lymphocytes Absolute Auto 1.1 X10*3/uL (1.2-4.9); Lymphocytes Percent Auto 21.6 % (20-40); Mean Corpuscular HGB Conc 32.7 g/dl (31.0-36.0); Mean Corpuscular Hemoglobin 31.9 pg (27.0-33.0); Mean Corpuscular Volume 97.6 fL (80.0-98.0); Mean Platelet Volume 10.4 fL (9.4-12.4); Monocytes Absolute Auto 0.3 X10*3/uL (0.1-1.2); Monocytes Percent Auto 6.4 % (2-11); Neutrophils Absolute Auto 3.5 x10*3/uL (2.0-8.3); Neutrophils Percent Auto 70.2 % (45-73); Platelet Count 238 X10*3/uL (160-400); Red Blood Count 4.52 X10*6/uL (4.60-5.80)
[2024-06-19 10:29] LABS: Urine Cytology See Pathology rpt
[2024-06-19 10:58] LABS: Appearance Urine Clear; Color Urine Yellow; Glucose Urine UA Negative (Negative); Leukocyte Esterase Urine Negative (Negative); Nitrite Urine Negative (Negative); Specific Gravity - Urine 1.015 (1.005-1.025); UMIC TRIGGER UACC YES; Urine Blood Small (1+) (Negative); Urine Ketones Negative (Negative); Urine Protein Negative (Neg-Trace)
[2024-06-19 11:09] LABS: Alanine Aminotransferase 15 U/L (0-40); Albumin Level 4.3 g/dL (3.5-5.0); Anion Gap 10 (12-20); Aspartate Amino Transferase 21 U/L (5-37); Bilirubin Total 0.6 mg/dL (0.0-1.0); Blood Urea Nitrogen 17 mg/dL (9-16); Carbon Dioxide 27 mmol/L (22-29); Chloride 106 mmol/L (96-108); Cholesterol 215 mg/dL (<200); Estimated Glomerular Filt Rate > 60; Glucose Fasting 103 mg/dL (60-99); HDL Cholesterol 88 mg/dL (>40); LDL Cholesterol Calculated 117 mg/dL (<100); Potassium 4.1 mmol/L (3.3-5.1); Sodium 139 mmol/L (135-145); Total Protein 6.8 g/dL (6.5-8.0); Triglycerides 51 mg/dL (<150)
[2024-06-19 11:18] LABS: Alkaline Phosphatase 71 U/L (39-117); TSH reflex Free T4 2.06 uIU/mL (0.32-4.0)
[2024-06-19 11:23] LABS: Folate 6.9 ng/mL (> or = 4.0); Prostate Specific Antigen Scr 0.37 ng/mL (<0.05-4.0); Vitamin B12 322 pg/mL (200-900)
[2024-06-19 11:25] LABS: Squamous Epithelial Cell Urine 0-2 /HPF (0-2); WBC Urine 0-5 /HPF (0-5)
[2024-06-19 11:34] LABS: Hyaline Casts Urine 0-2 /LPF (0-2)
[2024-06-19 11:35] LABS: Bacteria Urine None Seen (None Seen)
== END 2024-06-19 07:57 | disposition home or self-care (01) ==
LOC: HO.HMGCLDS 07:56
PROVIDERS: PCP Nurse Practitioner Family; Visit Provider Nurse Practitioner Family
DX: Z00.00 Encounter for general adult medical examination without abnormal findings (principal); I49.1 Atrial premature depolarization; E53.8 Deficiency of other specified B group vitamins; R31.29 Other microscopic hematuria
CPT/HCPCS: 36415; 80053; 80061; 81001; 81003; 82607; 82746; 84153; 84443; 85025; 88112; 96127; 99396

== ENCOUNTER 2024-12-22 13:58 | Outpatient (AMB) | payer OTHER, SELFPAY ==
[2024-12-22 14:01] VITALS: BP 130/80; PULSE 78; RESP 16; TEMP 36.6; O2SAT 98; BMI 22.4
--- NOTE | 2024-12-22 14:01 | MHC.PC.OV ---
Vital Signs 12/22/24 14:01 Height 5 ft 7 in Weight 143 lb BMI 22.4 BP 130/80 Blood Pressure Location Lt brachial Position Sitting Respiration 16 Pulse 78 Pulse Source Pulse Oximeter Temp 97.8 F Temp Source Oral Pulse Oximetry (%) 98 Oxygen Delivery Method Room Air Intake Visit Reasons: 6 months f/up Licensed Certified Orthotist Required: No Accompanied by: Self / Same As Patient Allergies gabapentin Adverse Reaction (Verified 12/22/24 14:07) Swelling Medication List - Last Reconciled 12/22/24 by DANA Hernandez No Known Home Meds Tobacco use date assessed: 12/22/24 Fall risk assessment: No Falls in past year Last assessed Fall Risk: 12/22/24 Dental Screening Dental Screen Date: 12/22/24 Did you have a dental visit in the last 12 months?: No Did you have a dental problem in the last 6 months where you did not have access to dental care?: No Was dental information given to patient?: Patient has dentist HPI 6 months f/up HPI Details Chief Complaint The patient presents for a follow-up visit primarily for hypertension management. History of Present Illness The patient is a 64-year-old male presenting with hypertension management. His blood pressure is reported to be stable, and he denies experiencing chest pain or dyspnea. However, he reports symptoms of dizziness, blurred vision, and headaches. The patient has a history of Vitamin B12 deficiency, and there is a plan to check his B12 levels along with other relevant laboratory tests. These tests include a complete blood count (CBC), comprehensive metabolic panel (CMP), thyroid-stimulating hormone (TSH), urinalysis, and lipid profile, which will be conducted fasting. 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 He no longer sees a therapist as he felt it was not beneficial and was worsening his condition. He denies any suicidal or homicidal ideations. In terms of preventative care, the patient declines any colon cancer screening and vaccinations at this time. Hx of aortic stenosis, will repeat echo. 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 - Mental Health: No longer sees a therapist as it was not beneficial Health Maintenance - Declined colon cancer screening - Declined vaccinations Review of Systems - Cardiovascular: Denies chest pain or dyspnea - Neurological: Reports dizziness, blurred vision, and headaches - Psychiatric: Denies suicidal or homicidal ideations Physical Exam General: Cooperative, healthy appearing, comfortable, no acute distress and well developed Orientation: Patient oriented x3 Limitations: No limitations Head: Normal to inspection Ears: Hearing grossly normal bilaterally Nose: Normal external nose present Face and sinus: Normal facial exam Eyes: Appearance normal, both eyes and all related structures Neck: Normal visual inspection and Yes full ROM Respiratory: Normal respiratory effort and able to speak in complete sentences. Clear to auscultation bilaterally Cardiovascular: Regular rate and rhythm. Normal S1 and S2 GI: Normal to inspection. Soft to palpation and nontender Skin: No rashes or lesions noted Neuro: Patient oriented x3 Extremities: Normal to inspection Results Plan 1. Hypertension The patient's hypertension is currently stable, with no reports of chest pain or dyspnea. Continued monitoring of blood pressure is advised. 2. Vitamin B12 Deficiency The patient has a history of Vitamin B12 deficiency. A plan is in place to check B12 levels along with other laboratory tests including CBC, CMP, TSH, urinalysis, and lipid profile, all to be conducted fasting. 3. Preventative Care The patient has declined colon cancer screening and vaccinations at this time. Follow-up discussions regarding these preventative measures are recommended. Discussion Notes During the visit, we discussed the patient's stable hypertension and the importance of continued monitoring. We also addressed his Vitamin B12 deficiency and planned for comprehensive lab tests. The patient declined colon cancer screening and vaccinations, and we will revisit these preventative measures in future consultations. Patient Instructions - Continue monitoring blood pressure regularly. - Complete fasting lab tests as scheduled. - Consider discussing colon cancer screening and vaccinations in future visits. [facility] Medical History Physical exam CAD (coronary artery disease) Kidney stone Neuropathy Agoraphobia PTSD (post-traumatic stress disorder) Surgical History No pertinent past surgical history Family History Father Unknown family medical history Mother Unknown family medical history Social History Household Members: None Housing: House Do you presently have visiting nurse or other home services: No Alcohol intake: never Patient Tobacco Use Status: Current everyday Tobacco user Tobacco use type: Cigarette Cigarettes Per Day: 8 Years Smoked: 50 e-Cigarette/Vaping Use: Never Used Second Hand Smoke Exposure: Yes service: No Current occupational status: disabled Sexual orientation: Straight/Heterosexual Cognitive needs: No Hearing needs: No Vision needs: No Questionnaire PHQ-9 Over the last 2 weeks, how often have you been bothered by any of the following problems? 1. Little interest or pleasure in doing things: not at all 2. Feeling down, depressed, or hopeless: not at all 3. Trouble falling or staying asleep, or sleeping too much: not at all 4. Feeling tired or having little energy: not at all 5. Poor appetite or overeating: not at all 6. Feeling bad about yourself - or that you are a failure or have let yourself or your family down: not at all 7. Trouble concentrating on things, such as reading the newspaper or watching television: not at all 8. Moving or speaking so slowly that other people could have noticed. Or the opposite - being so fidgety or restless that you have been moving around a lot more than usual: not at all 9. Thoughts that you would be better off or of hurting yourself in some way: not at all Total score: 0 Depression Screening Interpretation: Negative Depression Screening Done: Yes 98830 - PHQ-9 Billing: Yes Source: Developed by Drs. Jules Mcmahon, Zunilda Reed, Sergio Luther and colleagues, with an educational joanne from [employer]. Thrive Questionnaire Date Thrive assessed: 06/19/24 I am a: Patient What is your living situation today?: I have a place to live, but I am worried about losing it in the future Within the past 12 months, did the food you bought not last and you didn't have the money to get more?: Never true Within the past 12 months, did you worry whether your food would run out before you got money to buy more?: Never true Do you have trouble paying for medicines?: Yes Do you have trouble getting transportation to medical appointments?: Yes Do you have trouble paying your heating and electricity bill?: Yes Do you have trouble taking care of your child, family member or friend?: I choose not to answer this question Do you have trouble with day-to-day activities such as bathing, preparing meals, shopping, managing finances, etc.?: No Are you currently unemployed and looking for a job?: No Are you interested in more education?: No Currently or been in a relationship where the following occur: I choose not to answer THRIVE Score: 3 GRAHAM-7 AMB Questionnaire GRAHAM-7 Date GRAHAM - 7 assessed: 06/19/24 Feeling nervous, anxious, or on edge: 0 = Not at all Not being able to stop or control worryin = Not at all Worrying too much about different things: 0 = Not at all Trouble relaxin = Not at all Being so restless that it is hard to sit still: 0 = Not at all Becoming easily annoyed or irritable: 0 = Not at all Feeling afraid as if something awful might happen: 0 = Not at all Total GRAHAM-7 score (0-4 normal; 5-9 mild; 10-14 moderate; 15-21 severe): 0 Source: Developed by Drs. Jules Mcmahon, Zunilda Reed, Sergio Luther and colleagues, with an educational joanne from [employer]. GRAHAM-7 Assessment Billing GRAHAM-7 Assessment Tool: GRAHAM-7 Assessment 44371 Physical exam (Primary Care) Vital Signs: Last Vital Signs Temp 97.8 F 12/22/24 14:01 Pulse 78 12/22/24 14:01 Resp 16 12/22/24 14:01 BP 130/80 12/22/24 14:01 Pulse Ox 98 12/22/24 14:01 Oxygen Delivery Method Room Air 12/22/24 14:01 BMI result Body Mass Index 22.4 Tobacco/Smoking Status: Tobacco use Status Tobacco use date assessed 12/22/24 12/22/24 14:08 Patient Tobacco Use Status Current everyday Tobacco 12/22/24 14:08 Tobacco use type Cigarette 12/22/24 14:08 e-Cigarette/Vaping Use Never Used 12/22/24 14:08 PHQ-9: PHQ-9 Score PHQ-9: Total score 0 12/22/24 14:45 Depression Screening Interpretation: Negative Thrive Assessment: Date of Thrive Assessment Date Thrive assessed 06/19/24 12/22/24 14:08 Currently or been in a relationship where the following occur: I choose not to answer Coding Level of Care Code Est Pt Level 3 (91500) Diagnoses HTN (hypertension) I10 Vitamin B12 deficiency E53.8 Smoker F17.200 Systolic murmur R01.1 Additional Codes GRAHAM-7 Assessment Billing - GRAHAM-7 Assessment Tool: GRAHAM-7 Assessment 59666 ([id number]) PHQ-9 - 03429 - PHQ-9 Billing: Yes ([id number]) Assessment & Plan Assessment & Plan (1) HTN (hypertension): Code(s): I10 - Essential (primary) hypertension Category: Medical (2) Vitamin B12 deficiency: Code(s): E53.8 - Deficiency of other specified B group vitamins Category: Medical (3) Smoker: Code(s): F17.200 - Nicotine dependence, unspecified, uncomplicated Category: Social Hx (4) Systolic murmur: Code(s): R01.1 - Cardiac murmur, unspecified Category: Medical Plan . Orders: Orders Complete Blood Count Auto Diff Today I10 - Essential (primary) hypertension Comprehensive [place]. Panel Fast Today I10 - Essential (primary) hypertension TSH reflex Free T4 Today I10 - Essential (primary) hypertension Lipid Panel Today I10 - Essential (primary) hypertension Vitamin B12 and Folate Today E53.8 - Deficiency of other specified B group vitamins [place] echo transthoracic complete Today R01.1 - Cardiac murmur, unspecified UA CC w/rflx Micro + Cult Today I10 - Essential (primary) hypertension Prostate Specific Antigen Scr Today E53.8 - Deficiency of other specified B group vitamins Referrals Lung Cancer Screening Referral F17.200 - Nicotine dependence, unspecified, uncomplicated
== END 2024-12-22 15:27 | disposition home or self-care (01) ==
PROVIDERS: PCP Nurse Practitioner Family; Visit Provider Nurse Practitioner Family
DX: I10 Essential (primary) hypertension (principal); E53.8 Deficiency of other specified B group vitamins; F17.200 Nicotine dependence, unspecified, uncomplicated; R01.1 Cardiac murmur, unspecified

== ENCOUNTER 2024-12-22 13:58 | Outpatient (REF) | payer OTHER, SELFPAY ==
[2024-12-22 15:58] LABS: MANUAL DIFF FLAG NO
[2024-12-22 16:17] LABS: Hematocrit 44.4 % (42.0-52.0); Hemoglobin 14.7 g/dl (14.0-18.0); Imm Gran Abs Auto 0.01 X10*3/uL (0.00-0.03); Imm Gran Pct Auto 0.2 % (0.0-0.4); Lymphocytes Absolute Auto 1.5 X10*3/uL (1.2-4.9); Mean Corpuscular HGB Conc 33.1 g/dl (31.0-36.0); Mean Corpuscular Hemoglobin 31.7 pg (27.0-33.0); Mean Corpuscular Volume 95.9 fL (80.0-98.0); NRBC Abs Auto 0.000 X10*3/uL (0.0-0.012); NRBC Pct Auto 0.0 /100WBC (0.0-0.2); Platelet Count 224 X10*3/uL (160-400); Red Blood Count 4.63 X10*6/uL (4.60-5.80); White Blood Count 5.4 X10*3/uL (4.8-10.8)
[2024-12-22 16:58] LABS: Alanine Aminotransferase 23 U/L (0-40); Albumin Level 4.3 g/dL (3.5-5.0); Alkaline Phosphatase 70 U/L (39-117); Anion Gap 11 (12-20); Aspartate Amino Transferase 26 U/L (5-37); Blood Urea Nitrogen 13 mg/dL (9-16); Calcium 9.1 mg/dL (8.4-10.2); Carbon Dioxide 29 mmol/L (22-29); Chloride 104 mmol/L (96-108); Cholesterol 188 mg/dL (<200); Estimated Glomerular Filt Rate > 60; HDL Cholesterol 83 mg/dL (>40); Potassium 4.0 mmol/L (3.3-5.1); Sodium 140 mmol/L (135-145); Total Protein 6.6 g/dL (6.5-8.0); Triglycerides 38 mg/dL (<150)
[2024-12-22 17:45] LABS: Folate 5.4 ng/mL (> or = 4.0); Vitamin B12 199 pg/mL (200-900)
== END 2024-12-22 13:59 | disposition home or self-care (01) ==
LOC: HO.HMGCLDS 13:58
PROVIDERS: PCP Nurse Practitioner Family; Visit Provider Nurse Practitioner Family
DX: Z12.5 Encounter for screening for malignant neoplasm of prostate (principal); I10 Essential (primary) hypertension; E53.8 Deficiency of other specified B group vitamins; R01.1 Cardiac murmur, unspecified; F17.210 Nicotine dependence, cigarettes, uncomplicated
CPT/HCPCS: 36415; 80053; 80061; 82607; 82746; 84153; 84443; 85025; 96127; 99212